=== PATIENT | male | born 1950 | race Caucasian/White ===

== ENCOUNTER 2024-08-29 09:51 | Outpatient (CLI) | payer MEDICARE, SELFPAY ==
--- NOTE | ~2024-08-29 | XR_ITS ---
3 VIEWS LUMBAR SPINE Ordering provider: Nba Negrete, History: . PAIN IN LEFT HIP . Comparison: None. FINDINGS: VERTEBRAL BODIES: No visible fracture or subluxation. Degenerative changes of the spine. DISK SPACES: Narrowing of disc L4-L5. Multilevel facet joint disease. SOFT TISSUES: Atherosclerotic changes with highly suggestive aortic aneurysm measuring 6.5 cm. Furthe r evaluation advised. IMPRESSION: No acute osseous abnormality lumbar spine. Abdominal aortic aneurysm measuring 6.5 cm. Further evaluation advised. Degenerative disc disease at the level of L4-L5. Reviewed, dictated and finalized at location A. UTATOR OPERATOR
--- NOTE | ~2024-08-29 | XR_ITS ---
XR hip LT min 3V w AP pelvis Ordering provider: Nba Negrete, History: . PAIN IN LEFT HIP . Comparison: None. FINDINGS: BONES: No acute fracture or dislocation. HIP JOINT SPACES: Bilateral moderate hip osteoarthritic changes. SACROILIAC JOINT SPACES/LUMBAR SPINE: The sacroiliac joint spaces shows bilateral sacroiliitis. Mild degenerative changes of the visualized lower lumbar spine. PUBIC SYMPHYSIS: Pubic symphysitis. SOFT TISSUES: Atherosclerotic changes. IMPRESSION: No acute osseous abnormality pelvis and left hip. Bilateral hip osteoarthritic changes. Bilateral sacroiliitis. Reviewed, dictated and finalized at location A. DESIGNER
== END 2024-08-29 09:52 | disposition home or self-care (01) ==
LOC: ANHIMG 10:02
PROVIDERS: PCP Internal Medicine; Visit Provider Internal Medicine
DX: M25.552 Pain in left hip (principal); M51.369 Other intervertebral disc degeneration, lumbar region without mention of lumbar back pain or lower extremity pain; I71.40 Abdominal aortic aneurysm, without rupture, unspecified
CPT/HCPCS: 72100; 73502

== ENCOUNTER 2024-11-28 09:39 | Outpatient (CLI) | payer MEDICARE, SELFPAY ==
[2024-11-28 09:55] LABS: Basophils Absolute Auto 0.2 K/mm3 (0.0-0.1); Basophils Percent Auto 0.4 % (0.2-1.2); Eosinophils Absolute Auto 0.2 K/mm3 (0-0.3); Eosinophils Percent Auto 0.4 % (0-4.4); Hematocrit 49.1 % (42.0-52.0); Hemoglobin 15.3 g/dL (14.0-18.0); Immature Granulocyte Percent A 0.2 % (0-0.5); Lymphocytes Absolute Auto 40.08 K/mm3 (0.9-3.2); Lymphocytes Percent Auto 85.8 % (18.3-44.2); Mean Corpuscular HGB Conc 31.2 g/dl (32-36); Mean Corpuscular Hemoglobin 30.2 pg (26-34); Mean Corpuscular Volume 96.8 fl (80-100); Mean Platelet Volume 10.3 fl (7.4-10.4); Monocytes Absolute Auto 0.8 K/mm3 (0.1-0.6); Monocytes Percent Auto 1.7 % (2.6-8.5); Neutrophils Absolute Auto 5.3 K/mm3 (1.3-6.7); Neutrophils Percent Auto 11.5 % (45.5-73.1); Platelet Count Result 165 k/mm3 (150-375); Red Blood Count 5.07 M/mm3 (4.6-6.20); Red Cell Distribution Width 13.3 % (11.5-14.5); White Blood Count 46.7 K/mm3 (4.5-10.0)
[2024-11-28 10:07] LABS: Alanine Aminotransferase 19 U/L (6-50); Albumin Level 4.2 g/dL (3.5-5.1); Alkaline Phosphatase 103 U/L (38-126); Anion Gap 6 mmol/L (4-12); Aspartate Amino Transferase 29 U/L (17-59); Bilirubin,Total 1.6 mg/dL (0.2-1.3); Blood Urea Nitrogen 17 mg/dL (9-20); Calcium 9.2 mg/dL (8.4-10.2); Carbon Dioxide 32 mmol/L (22-30); Chloride 100 mmol/L (98-107); Estimated Glomerular Filt Rate > 60; Glucose 110 mg/dL (65-110); Potassium 4.5 mmol/L (3.4-5.0); Sodium 138 mmol/L (137-145)
--- OUTSIDE RECORDS SUMMARY | 2024-11-28 10:18 | XMS_ITS | Encounter Summary ---
Author Organization [facility] Address 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
--- OUTSIDE RECORDS SUMMARY | 2024-11-28 10:18 | XMS_ITS | Data Portability ---
Author Organization [employer], Main Office Address [address] [place] [address] Care Team Providers Care Creel Selector Name Role Phone JOSIE BANEGAS [employer] Wireman WAI NEGRETE Primary Care Provider [phone] YFN ASTUDILLO Hematology/Oncology [phone] PAOLA KILGORE 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 Operator Helper Assessment Encounter Date Assessment Date Assessment LastModified by Organization Details LastModified Time 02/07/2024 02/07/2024 10/08/2023: PSA 3.54 Gluc 120, TP 6.2L, Glob 2.4L 12/31/2023: Gluc 142, Glob 2.3 WBC 37.1 45 minutes spent with the patient and his vinicio Not available 02/07/2024 11:00:34 03/20/2024 03/20/2024 10/08/2023: PSA 3.54 Gluc 120, TP 6.2L, Glob 2.4L 12/31/2023: Gluc 142, Glob 2.3 WBC 37.1 02/08/2024: WBC 34.1 Gluc 107, bili T 1.90 45 minutes spent with the patient and his vinicio Not available 03/20/2024 12:00:56 05/31/2024 05/31/2024 10/08/2023: PSA 3.54 Gluc 120, TP 6.2L, Glob 2.4L 12/31/2023: Gluc 142, Glob 2.3 WBC 37.1 02/08/2024: WBC 34.1 Gluc 107, bili T 1.90 05/22/2024: WBC 41.6 Gluc 182, T bili 1.60H, TP 5.8L 45 minutes spent with the patient, reviewed his labs, updated the chart, provided referrals Not available 05/31/2024 10:53:59 08/28/2024 08/28/2024 10/08/2023: PSA 3.54 Gluc 120, TP 6.2L, Glob 2.4L 12/31/2023: Gluc 142, Glob 2.3 WBC 37.1 02/08/2024: WBC 34.1 Gluc 107, bili T 1.90 05/22/2024: WBC 41.6 Gluc 182, T bili 1.60H, TP 5.8L 45 minutes spent with the patient, reviewed his labs, updated the chart, provided referrals Not available 08/28/2024 11:36:45 11/27/2024 11/27/2024 10/08/2023: PSA 3.54 Gluc 120, TP 6.2L, Glob 2.4L 12/31/2023: Gluc 142, Glob 2.3 WBC 37.1 02/08/2024: WBC 34.1 Gluc 107, bili T 1.90 05/22/2024: WBC 41.6 Gluc 182, T bili 1.60H, TP 5.8L 09/08/2024: T bli 1.9 45 minutes spent with the patient, reviewed his labs, updated the chart, provided referrals for ortho [email or web address] Not available 11/27/2024 11:40:06 Plan of Treatment Reminders Order Date Submit Date Provider Last Modified By Organization Details Last Modified Time Details Appointments New Patient 15 2024 09:05A Enrike Ferguson MD Not available Not available Not available Follow Up 15 2024 09:15A Enrike valera MD Not available Not available Not available Lab lipid panel, serum [email or web address] (Lab), [address] [place], [address], 11/27/2024 12:31:12 CBC w/ auto diff [email or web address] (Lab), [address] [place], [address], 11/27/2024 12:31:12 CMP, serum or plasma [address] (Lab), [address] [place], [address], 11/27/2024 12:31:12 TSH, serum or plasma [address] (Lab), [address] [place], [address], 11/27/2024 12:31:13 lipid panel, serum 2024 025 [facility] (Lab), [address] [place], [address], 09/08/2024 18:10:20 CBC w/ auto diff 2024 025 [facility] (Lab), [address] [place], [address], 09/08/2024 18:10:20 CMP, serum or plasma 2024 025 [facility] (Lab), [address] [place], [address], 09/08/2024 18:10:20 TSH, serum or plasma [address] (Lab), [address] [place], [address], 08/28/2024 12:01:41 lipid panel, serum 2023 024 [facility] (Lab), [address] [place], [address], 11/27/2024 04:23:12 CBC w/ auto diff 2023 024 [facility] (Lab), [address] [place], [address], 11/27/2024 04:23:13 CMP, serum or plasma 2023 024 [facility] (Lab), [address] [place], [address], 11/27/2024 04:23:13 TSH, serum or plasma 2023 024 [facility] (Lab), [address] [place], [address], 11/27/2024 04:23:13 lipid panel, serum 2023 024 [facility] (Lab), [address] [place], [address], 05/22/2024 11:10:15 CBC w/ auto diff 2023 024 [facility] (Lab), [address] [place], [address], 05/22/2024 11:55:12 CMP, serum or plasma 2023 024 [facility] (Lab), [address] [place], [address], 05/22/2024 11:10:32 TSH, serum or plasma 2023 024 [facility] (Lab), [address] [place], [address], 05/22/2024 11:39:43 lipid panel, serum 2023 024 [facility] (Lab), [address] [place], [address], 02/08/2024 13:28:16 CBC w/ auto diff 2023 024 [facility] (Lab), [address] [place], [address], 02/08/2024 15:44:13 CMP, serum or plasma 2023 024 [facility] (Lab), [address] [place], [address], 02/08/2024 13:28:22 TSH, serum or plasma 2023 024 [facility] (Lab), [address] [place], [address], 02/08/2024 14:06:41 Referral vascular surgeon referral - Please call patient to schedule. 2024 025 kat Banegas MD, [address] [facility] [address], [place], [address], 11/27/2024 11:40:46 hematolog ist/oncol ogist referral 2024 025 kat Astudillo MD, [address] , [facility] [address], [place], [address], 11/27/2024 11:40:46 pulmonolo gist referral - (wait on labs) 2024 025 [email or web address] Paola Kilgore MD, [address] [place], [address], 11/27/2024 12:27:54 hepatolog ist referral - Add on referral order for appt. 2024 025 kat Gruber MD, [address] [facility] [address], [place], [address], 11/27/2024 11:40:47 orthopedi c surgeon referral - Please call patient to schedule an appointme nt. Thank you. 2024 025 [email or web address] Young Ferguson MD, [address] [facility], [place], [address], 11/27/2024 12:31:11 vascular surgeon referral - Please call patient to schedule. 2024 025 ELSIE Banegas MD, [address] [facility], [address], [place], [address], 10/05/2024 08:45:33 hematolog ist/oncol ogist referral 2024 025 Yfn Astudillo MD, [address], [address], [place], [address], 08/29/2024 11:22:15 urologist referral - Please call patient to schedule. 2024 025 [email or web address] Justin lBue, [address] [facility], [facility] [place], [address], 10/05/2024 08:17:47 pulmonolo gist referral 2024 025 [email or web address] Paola Kilgore MD, [address] [place], [address], 08/29/2024 11:22:14 hepatolog ist referral - Add on referral order for appt. 2024 025 aly Gruber MD, [address] [facility], [address], [place], [address], 10/30/2024 17:06:55 vascular surgeon referral 2023 024 [email or web address] Josie Banegas MD, [address] [facility], [facility] [address], [place], [address], 05/31/2024 10:43:57 hematolog ist/oncol ogist referral 2023 024 [email or web address] Yfn Astudillo MD, [address], [address], [place], [address], 05/31/2024 10:43:58 urologist referral 2023 024 [email or web address] Monty Khalil MD, [address] [facility] [address], [address], [place], [address], 05/31/2024 10:43:59 pulmonolo gist referral 2023 024 Paola Kilgore MD, [address] [place], [address], 05/31/2024 10:42:55 hepatolog ist referral 2023 024 [email or web address] Yvan Baltazar MD, [facility] [place], [address], 05/31/2024 10:44:00 vascular surgeon referral 2023 024 [email or web address] Josie Banegas MD, [address] [facility], [facility] [address], [address], 08/14/2024 16:12:16 urologist referral 2023 024 [email or web address] 2 Monty Khalil MD, [address] [facility] [address], [facility] [address], [place], [address], 10/17/2024 08:32:54 pulmonolo gist referral 2023 024 [email or web address] Paola Kilgore MD, [address] [place], [address], 04/20/2024 09:23:21 hepatolog ist referral 2023 024 [email or web address] 2 Yvan Baltazar MD, [address] [place], [address], 10/17/2024 08:32:55 hematolog ist/oncol ogist referral 2023 024 [email or web address] 2 Ariel Eric MD, [address], [place], [address], 10/17/2024 08:32:53 vascular surgeon referral 2023 024 [email or web address] Josie Banegas MD, [address], [address], [place], [address], 08/14/2024 16:12:21 hematolog ist/oncol ogist referral 2023 024 LIZ Eric MD, [address], [place], [address], 02/15/2024 10:31:53 urologist referral 2023 024 [email or web address] Monty Khalil MD, [address] [facility] [address], [address], [place], [address], 10/02/2024 09:18:02 pulmonolo gist referral 2023 024 [email or web address] Paola Kilgore MD, [address], [place], [address], 03/06/2024 09:42:47 Procedures colonosco py screening (PROC) - Please call patient to schedule. 2024 025 [email or web address] Trae Sainz MD, [address], [address], [place], [address], 11/27/2024 11:40:46 colonosco py screening (PROC) - Please call patient to schedule. 2024 025 [email or web address] Deon Arreguin MD, [address] [facility] [address], [address], [place], [address], 08/29/2024 11:20:59 colonosco py screening (PROC) 2023 024 [email or web address] Tracy Gruber MD, [address], [address], [place], [address], 2024 13:00:40 colonosco py screening (PROC) 2023 024 [email or web address] Yuridia Aquino MD, [address], [address], [place], [address], 10/19/2024 11:01:12 colonosco py screening (PROC) 2023 024 [email or web address] Yuridia Aquino MD, [address], [address], [place], [address], 08/14/2024 16:10:34 Surgeries None recorded. Imaging XR, hip + pelvis, unilatera l, 2 or 3 view - Stat hold and call 2024 025 [facility], [address], [address], [place], [address], 08/29/2024 12:35:18 XR, lumbosacr al spine, 2 or 3 view - Stat hold and call Dr Patrick valera 2024 025 [facility], [address], [address], [place], [address], 08/29/2024 12:38:24 Medication Orders albuterol sulfate HFA 90 mcg/actua tion aerosol inhaler 2024 025 [id number], [address] , [place], [place], [id number], 08/28/2024 12:00:17 Patient TargetsNo targets recorded. Patient Instructions Encounter Date Encounter Id Patient Instructions Last Modified By Organization Details Last Modified Time 02/07/2024 [id number] dementia rating scale-2* [email or web address] 2 Not available 02/07/2024 13:48:08 alcohol misuse* [email or web address] 2 Not available 02/07/2024 13:48:08 depression screening* [email or web address] 2 Not available 02/07/2024 13:48:08 Timed Up and Go test (TUG)* stephanie 2 Not available 02/07/2024 13:48:08 multi-dimensiona l health assessment questionnaire* [email or web address] Not available 02/08/2024 13:07:05 advance care planning: care instructions stephanie 2 Not available 02/07/2024 13:48:08 advance directiv es: care instructions stephanie 2 Not available 02/07/2024 13:48:08 [place] Advance Directives stephanie 2 Not available 02/07/2024 13:48:08 Personalized Hea lt Plan and Screening Recommendations Advance Directives - Do you have one? No You have indicated that you are capable of preparing your advance care directive Advance Directives - Do we have your advance directive on file in your health record? Primary Prevention/Interven tion (prevents or decreases the chance of common diseases from occurring) Smoking Risk: Non Smoker Alcohol Misuse Screening: Negative Weight: Appropriate Overwei ght continue your current weight loss efforts try to lose 5% of your body weight try to lose 10% of your body weight Physical activity: Need more exercise/physical activity decrease sitting time to no more than 5hr/day Nutrition: Good Average Refer to attached handout Heart-Healthy Diet: After Your Visit Refer to attached handout DASH Diet: After Your Visit Fall Risk (screened today): Low Intermediate Refer to attached handout Preventing Falls: After your Visit Vaccines Pneumococcal: Ordered Recommended today Recommended today, but you have declined No further needed Influenza: Your next one in the fall of this year Chronic Disease Risks Stroke: Low Risk Intermediate Risk Heart Attack: Low risk Intermediate Risk Clogging of the Arteries: Low risk Intermediate Risk Diabetes: High Risk Active diagnosis, Continue current treatment plan Secondary Prevention/Interven tion (detects treatable diseases before they may cause symptoms, disability, or ) Prostate Cancer Screening: Colon Cancer Screening: Colonoscopy Date Screening Last Performed:Ordered Eye Disease Screening: Ordered Recommended today Dementia Risk: Low I have no recommendations Depression Screening: Negative Positive Active diagnosis, Continue current treatment plan [email or web address] Not available 02/07/2024 13:40:32 Reason for Referral 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 Operator Helper Referral for O bstructive sleep apnea syndrome Referring Physician: Wai Negrete, Internal Medicine, Encounter Date: 02/07/2024 Vascular Surgeon Referral fo r Peripheral vascular disease Referring Physician: Vish Moody Medicine, Encounter Date: 02/07/2024 Referring Physician: Wai Negrete Internal [place], Encounter Date: 02/07/2024 Urologist Referral for Prost ate specific antigen above reference range Referring Physician: Wai Negrete Internal Medicine, Encounter Date: 02/07/2024 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 Operator Helper Referral for O bstructive sleep apnea syndrome Referring Physician: Vish Moody Medicine, Encounter Date: 03/20/2024 Vascular Surgeon Referral fo r Peripheral vascular disease Referring Physician: Vish Moody, Encounter Date: 03/20/2024 Referring Physician: Vish Moody, Encounter Date: 03/20/2024 Urologist Referral for Prost ate specific antigen above reference range Referring Physician: Vish Moody, Encounter Date: 03/20/2024 Hazardous Materials Waste Technician Referral for He patomegaly Referring Physician: Vish Moody, Encounter Date: 03/20/2024 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 Operator Helper Referral for O bstructive sleep apnea syndrome Referring Physician: Vish Moody, Encounter Date: 05/31/2024 Vascular Surgeon Referral fo r Peripheral vascular disease Referring Physician: Vish Moody, Encounter Date: 05/31/2024 Referring Physician: Vish Moody, Encounter Date: 05/31/2024 Urologist Referral for Prost ate specific antigen above reference range Referring Physician: Vish Moody, Encounter Date: 05/31/2024 Hazardous Materials Waste Technician Referral for He patomegaly Referring Physician: Vish Moody, Encounter Date: 05/31/2024 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 Operator Helper Referral for O bstructive sleep apnea syndrome Referring Physician: Wai Negrete Internal Medicine, Encounter Date: 08/28/2024 Vascular Surgeon Referral fo r Peripheral vascular disease Please call patient to schedule. Referring Physician: Wai Negrete Internal Medicine, Encounter Date: 08/28/2024 Referring Physician: Wai Negrete Internal Medicine, Encounter Date: 08/28/2024 Urologist Referral for Prost ate specific antigen above reference range Please call patient to schedule. Referring Physician: Wai Negrete Internal Medicine, Encounter Date: 08/28/2024 Hazardous Materials Waste Technician Referral for He patomegaly Add on referral order for 09/13/2024 appt. Referring Physician: Vish Moody Medicine, Encounter Date: 08/28/2024 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 Operator Helper Referral for O bstructive sleep apnea syndrome (wait on labs) Referring Physician: Vish Moody Medicine, Encounter Date: 11/27/2024 Vascular Surgeon Referral fo r Peripheral vascular disease Please call patient to schedule. Referring Physician: Vish Moody Medicine, Encounter Date: 11/27/2024 Referring Physician: Wai Negrete Internal Medicine, Encounter Date: 11/27/2024 Hazardous Materials Waste Technician Referral for He patomegaly Add on referral order for 09/13/2024 appt. Referring Physician: Vish Moody Medicine, Encounter Date: 11/27/2024 Orthopedic Surgeon Referral for Pain of bilateral knee joints Please call patient to schedule an appointment. Thank you. Referring Physician: Vish Moody Medicine, Encounter Date: 11/27/2024 Results Created Date Observation Date Name Description Value Unit Range Abnormal Flag Note LastModifiedBy Organization Detail LastModifiedTime 02/08/20 24 02/08/2024 LIPID PANEL cholesterol 119 mg/dL 140-19 9 low NIH ISAMAR NSUS RECOM MENDA TION FOR ROGERIO STERO L: ADULT CHILD LOW RISK: <200 <170 BORDE RLINE : <200- 239 ----- HIGH RISK: >240 >200 Not Available [facility] (Lab) [address] [place], [address], 02/08/2024 13:28:16 02/08/20 24 02/08/2024 LIPID PANEL triglyceride s 113 mg/dL 0-150 NIH ISAMAR NSUS REPOR T RECOM MENDA TION FOR TRIGL YCERI COLLEEN: ADULT CHILD LOW RISK: <150 ----- BODER LINE: 150-1 99 ----- HIGH RISK: >200 ----- Not Available [facility] (Lab) [address] [place], [address], 02/08/2024 13:28:16 02/08/20 24 02/08/2024 LIPID PANEL HDL cholesterol 36 mg/dL 40- low Not Available [facility] (Lab) [address] [place], [address], 02/08/2024 13:28:16 02/08/20 24 02/08/2024 LIPID PANEL LDL cholesterol, calculated 60 mg/dL 0-130 NIH ISAMAR NSUS REPOR T RECOM MENDA TIONS FOR LDL: ADULT CHILD LOW RISK <130 <110 (OPTI MAL LDL) <100 ----- BORDE RLINE : 130-1 59 ----- HIGH RISK: >160 >130 A TRIGL YCERI DE RESUL T >400 INVAL IDATE S THE CALCU LATIO N FOR LDL FRACT IONAT ION - THE LDL RESUL T WILL NOT BE REPOR SUZAN. Not Available [facility] (Lab) [address] [place], [address], 02/08/2024 13:28:16 02/08/20 24 02/08/2024 COMPR EHENS JOSÉ MIGUEL METAB OLIC PANEL sodium 139 mmol/ L 137-14 5 Not Available [facility] (Lab) [address] [place], [address], 02/08/2024 13:28:22 02/08/20 24 02/08/2024 COMPR EHENS JOSÉ MIGUEL METAB OLIC PANEL potassium 3.7 mmol/ L 3.5-5. 1 Not Available [facility] (Lab) [address] [place], [address], 02/08/2024 13:28:22 02/08/20 24 02/08/2024 COMPR EHENS JOSÉ MIGUEL METAB OLIC PANEL chloride 103 mmol/ L 98-107 Not Available [facility] (Lab) [address] [place], [address], 02/08/2024 13:28:22 02/08/20 24 02/08/2024 COMPR EHENS JOSÉ MIGUEL METAB OLIC PANEL carbon dioxide 32 mmol/ L 22-30 high Not Available [facility] (Lab) [address] [place], [address], 02/08/2024 13:28:22 02/08/20 24 02/08/2024 COMPR EHENS JOSÉ MIGUEL METAB OLIC PANEL anion gap 7.7 mmol/ L 14-22 low Not Available [facility] (Lab) [address] [place], [address], 02/08/2024 13:28:22 02/08/20 24 02/08/2024 COMPR EHENS JOSÉ MIGUEL METAB OLIC PANEL glucose 107 mg/dL 70-99 high Not Available [facility] (Lab) [address] [place], [address], 02/08/2024 13:28:22 02/08/20 24 02/08/2024 COMPR EHENS JOSÉ MIGUEL METAB OLIC PANEL BUN 17 mg/dL 8-19 Not Available [facility] (Lab) [address] [place], [address], 02/08/2024 13:28:22 02/08/20 24 02/08/2024 COMPR EHENS JOSÉ MIGUEL METAB OLIC PANEL creatinine 0.81 mg/dL 0.66-1 .25 Not Available [facility] (Lab) [address] [place], [address], 02/08/2024 13:28:22 02/08/20 24 02/08/2024 COMPR EHENS JOSÉ MIGUEL METAB OLIC PANEL GFR >60 Refer ence Range : [place] ge GFR Healt hy Adult : >60 mL/mi n/1.7 3 m2 Chron ic Kidne y Disea se: 15-60 mL/mi n/1.7 3 m2 Kidne y Failu re: <15/m L/min /1.73 m2 www.n iddk. nih.g ov The MDRD study equat ion has not been valid ated in child les <18 years of age; pregn ant women ; the elder ly >85 years of age; or in some racia l or ethni c subgr oups, such as Hismt nics. Outsi de the valid ated matheus eters , estim ated GFR is less accur ate, requi ring clini carly judgm ent on a case- by-ca se basis . Clini carly inter preta tion for other races and ages must be made by the clini priya. The MDRD study equat ion has not been valid ated for the evalu ation of serum creat inine relat ed to nutri rubi l statu s or medic ation usage . For perso ns <18 years of age, a pedia tric GFR calcu lator is avail able on the F websi te: https ://ww w.kid maria esther.o rg/pr ofess ional s/kdo qi/gf r_cal culat or Not Available [facility] (Lab) [address] [place], [address], 02/08/2024 13:28:22 02/08/20 24 02/08/2024 COMPR EHENS JOSÉ MIGUEL METAB OLIC PANEL alkaline phosphatase 106 U/L 38-126 Not Available [facility] (Lab) [address] [place], [address], 02/08/2024 13:28:22 02/08/20 24 02/08/2024 COMPR EHENS JOSÉ MIGUEL METAB OLIC PANEL alanine aminotransfe rase 15 U/L 0-50 Not Available [facility] (Lab) [address] [place], [address], 02/08/2024 13:28:22 02/08/20 24 02/08/2024 COMPR EHENS JOSÉ MIGUEL METAB OLIC PANEL aspartate aminotransfe rase 16 U/L 15-46 Not Available [facility] (Lab) [address] [place], [address], 02/08/2024 13:28:22 02/08/20 24 02/08/2024 COMPR EHENS JOSÉ MIGUEL METAB OLIC PANEL bilirubin, total 1.90 mg/dL 0.20-1 .30 high Not Available [facility] (Lab) [address] [place], [address], 02/08/2024 13:28:22 02/08/20 24 02/08/2024 COMPR EHENS JOSÉ IMGUEL METAB OLIC PANEL calcium 9.2 mg/dL 8.4-10 .2 Not Available [facility] (Lab) [address] [place], [address], 02/08/2024 13:28:22 02/08/20 24 02/08/2024 COMPR EHENS JOSÉ MIGUEL METAB OLIC PANEL total protein 6.4 g/dL 6.3-8. 2 Not Available [facility] (Lab) [address] [place], [address], 02/08/2024 13:28:22 02/08/20 24 02/08/2024 COMPR EHENS JOSÉ MIGUEL METAB OLIC PANEL albumin 4.3 g/dL 3.0-4. 4 Not Available [facility] (Lab) [address] [place], [address], 02/08/2024 13:28:22 02/08/20 24 02/08/2024 COMPR EHENS JOSÉ MIGUEL METAB OLIC PANEL globulin 2.1 g/dL 2.6-4. 2 low Not Available [facility] (Lab) [address] [place], [address], 02/08/2024 13:28:22 02/08/20 24 02/08/2024 COMPR EHENS JOSÉ MIGUEL METAB OLIC PANEL A/G ratio 2.0 ratio 1.0-2. 0 Not Available [facility] (Lab) [address] [place], [address], 02/08/2024 13:28:22 02/08/20 24 02/08/2024 TSH W/REF FELICE FT4 TSH with reflex free T4 1.490 uIU/m L 0.465- 4.680 Not Available [facility] (Lab) [address] [place], [address], 02/08/2024 14:06:41 02/08/20 24 02/08/2024 CBC/C OMPLE TE BLD COUNT W/DIF F white blood cells 34.1 x10'3 /uL 4.2-10 .8 critical high Not Available [facility] (Lab) [address] [place], [address], 02/08/2024 16:13:45 02/08/20 24 02/08/2024 CBC/C OMPLE TE BLD COUNT W/DIF F red blood cells 4.90 x10'6 /uL 4.10-5 .80 Not Available [facility] (Lab) [address] [place], [address], 02/08/2024 16:13:45 02/08/20 24 02/08/2024 CBC/C OMPLE TE BLD COUNT W/DIF F hemoglobin 15.7 g/dL 13.2-1 7.0 Not Available [facility] (Lab) [address] [place], [address], 02/08/2024 16:13:45 02/08/20 24 02/08/2024 CBC/C OMPLE TE BLD COUNT W/DIF F hematocrit 47.0 % 39.3-5 0.0 Not Available [facility] (Lab) [address] [place], [address], 02/08/2024 16:13:45 02/08/20 24 02/08/2024 CBC/C OMPLE TE BLD COUNT W/DIF F mean red cell volume 95.9 fL 80.0-9 7.0 Not Available [facility] (Lab) [address] [place], [address], 02/08/2024 16:13:45 02/08/20 24 02/08/2024 CBC/C OMPLE TE BLD COUNT W/DIF F mean red cell hemoglobin 32.0 pg 27.0-3 3.0 Not Available [facility] (Lab) [address] [place], [address], 02/08/2024 16:13:45 02/08/20 24 02/08/2024 CBC/C OMPLE TE BLD COUNT W/DIF F mean RBC HGB concentratio n 33.4 g/dL 31.0-3 6.0 Not Available [facility] (Lab) [address] [place], [address], 02/08/2024 16:13:45 02/08/20 24 02/08/2024 CBC/C OMPLE TE BLD COUNT W/DIF F red cell distribution width 13.2 % 11.8-1 5.5 Not Available [facility] (Lab) [address] [place], [address], 02/08/2024 16:13:45 02/08/20 24 02/08/2024 CBC/C OMPLE TE BLD COUNT W/DIF F platelets 173 x10'3 /uL 150-40 0 Not Available [facility] (Lab) [address] [place], [address], 02/08/2024 16:13:45 02/08/20 24 02/08/2024 CBC/C OMPLE TE BLD COUNT W/DIF F mean platelet volume 11.1 fL 9.0-12 .4 Not Available [facility] (Lab) [address] [place], [address], 02/08/2024 16:13:45 02/08/20 24 02/08/2024 CBC/C OMPLE TE BLD COUNT W/DIF F neutrophils 21 % 39.0-7 2.0 low Not Available [facility] (Lab) [address] [place], [address], 02/08/2024 16:13:45 02/08/20 24 02/08/2024 CBC/C OMPLE TE BLD COUNT W/DIF F bands 1 % 0-3 Not Available [facility] (Lab) [address] [place], [address], 02/08/2024 16:13:45 02/08/20 24 02/08/2024 CBC/C OMPLE TE BLD COUNT W/DIF F lymphocytes 73 % 16.0-4 7.0 high Not Available [facility] (Lab) [address] [place], [address], 02/08/2024 16:13:45 02/08/20 24 02/08/2024 CBC/C OMPLE TE BLD COUNT W/DIF F monocytes 2 % 5.0-12 .0 low Not Available [facility] (Lab) [address] [place], [address], 02/08/2024 16:13:45 02/08/20 24 02/08/2024 CBC/C OMPLE TE BLD COUNT W/DIF F basophils 1 % 0.0-2. 0 Not Available [facility] (Lab) [address] [place], [address], 02/08/2024 16:13:45 02/08/20 24 02/08/2024 CBC/C OMPLE TE BLD COUNT W/DIF F metamyelocyt es 1 % -0 high Not Available [facility] (Lab) [address] [place], [address], 02/08/2024 16:13:45 02/08/20 24 02/08/2024 CBC/C OMPLE TE BLD COUNT W/DIF F myelocyt 1 % -0 high Not Available [facility] (Lab) [address] [place], [address], 02/08/2024 16:13:45 02/08/20 24 02/08/2024 CBC/C OMPLE TE BLD COUNT W/DIF F neutrophils, absolute count 5.43 x10'3 /uL 1.5-8. 0 Not Available [facility] (Lab) [address] [place], [address], 02/08/2024 16:13:45 02/08/20 24 02/08/2024 CBC/C OMPLE TE BLD COUNT W/DIF F nucleated red blood cells 0.0 % -0 Not Available [facility] (Lab) [address] [place], [address], 02/08/2024 16:13:45 02/08/20 24 02/08/2024 CBC/C OMPLE TE BLD COUNT W/DIF F NRBC# 0.00 x10'3 /uL Not Available [facility] (Lab) [address] [place], [address], 02/08/2024 16:13:45 02/08/20 24 02/08/2024 CBC/C OMPLE TE BLD COUNT W/DIF F reactive lymphocytes OCCASI ONAL Not Available [facility] (Lab) [address] [place], [address], 02/08/2024 16:13:45 02/08/20 24 02/08/2024 CBC/C OMPLE TE BLD COUNT W/DIF F smudge cells 3+ Not Available [facility] (Lab) [address] [place], [address], 02/08/2024 16:13:45 05/22/20 24 05/22/2024 LIPID PANEL cholesterol 129 mg/dL 140-19 9 low NIH ISAMAR NSUS RECOM MENDA TION FOR ROGERIO STERO L: ADULT CHILD LOW RISK: <200 <170 BORDE RLINE : <200- 239 ----- HIGH RISK: >240 >200 Not Available [facility] (Lab) [address] [place], [address], 05/22/2024 11:10:15 05/22/20 24 05/22/2024 LIPID PANEL triglyceride s 137 mg/dL 0-150 NIH ISAMAR NSUS REPOR T RECOM MENDA TION FOR TRIGL YCERI COLLEEN: ADULT CHILD LOW RISK: <150 ----- BODER LINE: 150-1 99 ----- HIGH RISK: >200 ----- Not Available [facility] (Lab) [address] [place], [address], 05/22/2024 11:10:15 05/22/20 24 05/22/2024 LIPID PANEL HDL cholesterol 35 mg/dL 40- low Not Available [facility] (Lab) [address] [place], [address], 05/22/2024 11:10:15 05/22/20 24 05/22/2024 LIPID PANEL LDL cholesterol, calculated 67 mg/dL 0-130 NIH ISAMAR NSUS REPOR T RECOM MENDA TIONS FOR LDL: ADULT CHILD LOW RISK <130 <110 (OPTI MAL LDL) <100 ----- BORDE RLINE : 130-1 59 ----- HIGH RISK: >160 >130 A TRIGL YCERI DE RESUL T >400 INVAL IDATE S THE CALCU LATIO N FOR LDL FRACT IONAT ION - THE LDL RESUL T WILL NOT BE REPOR SUZAN. Not Available [facility] (Lab) [address] [place], [address], 05/22/2024 11:10:15 05/22/20 24 05/22/2024 COMPR EHENS JOSÉ MIGUEL METAB OLIC PANEL sodium 136 mmol/ L 137-14 5 low Not Available [facility] (Lab) [address] [place], [address], 05/22/2024 11:10:32 05/22/2005/22/2024 COMPR EHENS JOSÉ MIGUEL METAB OLIC PANEL potassium 3.7 mmol/ L 3.5-5. 1 Not Available [facility] (Lab) [address] [place], [address], 05/22/2024 11:10:32 05/22/20 24 05/22/2024 COMPR EHENS JOSÉ MIGUEL METAB OLIC PANEL chloride 101 mmol/ L 98-107 Not Available [facility] (Lab) [address] [place], [address], 05/22/2024 11:10:32 05/22/20 24 05/22/2024 COMPR EHENS JOSÉ MIGUEL METAB OLIC PANEL carbon dioxide 30 mmol/ L 22-30 Not Available [facility] (Lab) [address] [place], [address], 05/22/2024 11:10:32 05/22/20 24 05/22/2024 COMPR EHENS JOSÉ MIGUEL METAB OLIC PANEL anion gap 8.7 mmol/ L 14-22 low Not Available [facility] (Lab) [address] [place], [address], 05/22/2024 11:10:32 05/22/20 24 05/22/2024 COMPR EHENS JOSÉ MIGUEL METAB OLIC PANEL glucose 182 mg/dL 70-99 high Not Available [facility] (Lab) [address] [place], [address], 05/22/2024 11:10:32 05/22/20 24 05/22/2024 COMPR EHENS JOSÉ MIGUEL METAB OLIC PANEL BUN 16 mg/dL 8-19 Not Available [facility] (Lab) [address] [place], [address], 05/22/2024 11:10:32 05/22/20 24 05/22/2024 COMPR EHENS JOSÉ MIGUEL METAB OLIC PANEL creatinine 0.81 mg/dL 0.66-1 .25 Not Available [facility] (Lab) [address] [place], [address], 05/22/2024 11:10:32 05/22/20 24 05/22/2024 COMPR EHENS JOSÉ MIGUEL METAB OLIC PANEL GFR >60 Refer ence Range : [place] ge GFR Healt hy Adult : >60 mL/mi n/1.7 3 m2 Chron ic Kidne y Disea se: 15-60 mL/mi n/1.7 3 m2 Kidne y Failu re: <15/m L/min /1.73 m2 www.n iddk. nih.g ov The MDRD study equat ion has not been valid ated in child les <18 years of age; pregn ant women ; the elder ly >85 years of age; or in some racia l or ethni c subgr oups, such as mt nics. Outsi de the valid ated matheus eters , estim ated GFR is less accur ate, requi ring clini carly judgm ent on a case- by-ca se basis . Clini carly inter preta tion for other races and ages must be made by the clini priya. The MDRD study equat ion has not been valid ated for the evalu ation of serum creat inine relat ed to nutri rubi l statu s or medic ation usage . For perso ns <18 years of age, a pedia tric GFR calcu lator is avail able on the [facility] websi te: https ://aldair w.lester cartery.o rg/pr ofess ional s/kdo qi/gf r_cal culat or Not Available [facility] (Lab) [address] [place], [address], 05/22/2024 11:10:32 05/22/20 24 05/22/2024 COMPR EHENS JOSÉ MIGUEL METAB OLIC PANEL alkaline phosphatase 103 U/L 38-126 Not Available [facility] (Lab) [address] [place], [address], 05/22/2024 11:10:32 05/22/20 24 05/22/2024 COMPR EHENS JOSÉ MIGUEL METAB OLIC PANEL alanine aminotransfe rase 25 U/L 0-50 Not Available [facility] (Lab) [address] [facility] [place], [address], 05/22/2024 11:10:32 05/22/20 24 05/22/2024 COMPR EHENS JOSÉ MIGUEL METAB OLIC PANEL aspartate aminotransfe rase 29 U/L 15-46 Not Available [facility] (Lab) [address] [place], [address], 05/22/2024 11:10:32 05/22/20 24 05/22/2024 COMPR EHENS JOSÉ MIGUEL METAB OLIC PANEL bilirubin, total 1.60 mg/dL 0.20-1 .30 high Not Available [facility] (Lab) [address] [place], [address], 05/22/2024 11:10:32 05/22/20 24 05/22/2024 COMPR EHENS JOSÉ MIGUEL METAB OLIC PANEL calcium 9.5 mg/dL 8.4-10 .2 Not Available [facility] (Lab) [address] [place], [address], 05/22/2024 11:10:32 05/22/20 24 05/22/2024 COMPR EHENS JOSÉ MIGUEL METAB OLIC PANEL total protein 5.8 g/dL 6.3-8. 2 low Not Available [facility] (Lab) [address] [place], [address], 05/22/2024 11:10:32 05/22/20 24 05/22/2024 COMPR EHENS JOSÉ MIGUEL METAB OLIC PANEL albumin 3.7 g/dL 3.0-4. 4 Not Available [facility] (Lab) [address] [place], [address], 05/22/2024 11:10:32 05/22/20 24 05/22/2024 COMPR EHENS JOSÉ MIGUEL METAB OLIC PANEL globulin 2.1 g/dL 2.6-4. 2 low Not Available [facility] (Lab) [address] [place], [address], 05/22/2024 11:10:32 05/22/20 24 05/22/2024 COMPR EHENS JOSÉ MIGUEL METAB OLIC PANEL A/G ratio 1.8 ratio 1.0-2. 0 Not Available [facility] (Lab) [address] [place], [address], 05/22/2024 11:10:32 05/22/2005/22/2024 TSH W/REF FELICE FT4 TSH with reflex free T4 1.150 uIU/m L 0.465- 4.680 Not Available [facility] (Lab) [address] [place], [address], 05/22/2024 11:39:43 05/22/2005/22/2024 CBC/C OMPLE TE BLD COUNT W/DIF F white blood cells 41.6 x10'3 /uL 4.2-10 .8 critical high Not Available [facility] (Lab) [address] [place], [address], 05/22/2024 11:56:19 05/22/2005/22/2024 CBC/C OMPLE TE BLD COUNT W/DIF F red blood cells 4.77 x10'6 /uL 4.10-5 .80 Not Available [facility] (Lab) [address] [place], [address], 05/22/2024 11:56:19 05/22/2005/22/2024 CBC/C OMPLE TE BLD COUNT W/DIF F hemoglobin 15.0 g/dL 13.2-1 7.0 Not Available [facility] (Lab) [address] [place], [address], 05/22/2024 11:56:19 05/22/2005/22/2024 CBC/C OMPLE TE BLD COUNT W/DIF F hematocrit 46.2 % 39.3-5 0.0 Not Available [facility] (Lab) [address] [place], [address], 05/22/2024 11:56:19 05/22/2005/22/2024 CBC/C OMPLE TE BLD COUNT W/DIF F mean red cell volume 96.9 fL 80.0-9 7.0 Not Available [facility] (Lab) [address] [place], [address], 05/22/2024 11:56:19 05/22/2005/22/2024 CBC/C OMPLE TE BLD COUNT W/DIF F mean red cell hemoglobin 31.4 pg 27.0-3 3.0 Not Available [facility] (Lab) [address] [place], [address], 05/22/2024 11:56:19 05/22/2005/22/2024 CBC/C OMPLE TE BLD COUNT W/DIF F mean RBC HGB concentratio n 32.5 g/dL 31.0-3 6.0 Not Available [facility] (Lab) [address] [place], [address], 05/22/2024 11:56:19 05/22/20 24 05/22/2024 CBC/C OMPLE TE BLD COUNT W/DIF F red cell distribution width 13.0 % 11.8-1 5.5 Not Available [facility] (Lab) [address] [place], [address], 05/22/2024 11:56:19 05/22/2005/22/2024 CBC/C OMPLE TE BLD COUNT W/DIF F platelets 169 x10'3 /uL 150-40 0 Not Available [facility] (Lab) [address] [facility] [place], [address], 05/22/2024 11:56:19 05/22/2005/22/2024 CBC/C OMPLE TE BLD COUNT W/DIF F mean platelet volume 10.4 fL 9.0-12 .4 Not Available [facility] (Lab) [address] [place], [address], 05/22/2024 11:56:19 05/22/2005/22/2024 CBC/C OMPLE TE BLD COUNT W/DIF F neutrophils 14.6 % 39.0-7 2.0 low Not Available [facility] (Lab) [address] [place], [address], 05/22/2024 11:56:19 05/22/2005/22/2024 CBC/C OMPLE TE BLD COUNT W/DIF F lymphocytes 82.6 % 16.0-4 7.0 high Not Available [facility] (Lab) [address] [place], [address], 05/22/2024 11:56:19 05/22/2005/22/2024 CBC/C OMPLE TE BLD COUNT W/DIF F monocytes 1.9 % 5.0-12 .0 low Not Available [facility] (Lab) [address] [place], [address], 05/22/2024 11:56:19 05/22/20 24 05/22/2024 CBC/C OMPLE TE BLD COUNT W/DIF F eosinophils 0.6 % 1.0-7. 0 low Not Available [facility] (Lab) [address] [place], [address], 05/22/2024 11:56:19 05/22/2005/22/2024 CBC/C OMPLE TE BLD COUNT W/DIF F basophils 0.1 % 0.0-2. 0 Not Available [facility] (Lab) [address] [place], [address], 05/22/2024 11:56:19 05/22/2005/22/2024 CBC/C OMPLE TE BLD COUNT W/DIF F immature granulocytes 0.2 % 0.00-0 .50 Not Available [facility] (Lab) [address] [place], [address], 05/22/2024 11:56:19 05/22/2005/22/2024 CBC/C OMPLE TE BLD COUNT W/DIF F neutrophils, absolute count 6.03 x10'3 /uL 1.5-8. 0 Not Available [facility] (Lab) [address] [place], [address], 05/22/2024 11:56:19 05/22/2005/22/2024 CBC/C OMPLE TE BLD COUNT W/DIF F lymphocytes, absolute count 34.35 x10'3 /uL 1.07-3 .43 high Not Available [facility] (Lab) [address] [place], [address], 05/22/2024 11:56:19 05/22/2005/22/2024 CBC/C OMPLE TE BLD COUNT W/DIF F monocytes, absolute count 0.80 x10'3 /uL 0.29-0 .99 Not Available [facility] (Lab) [address] [place], [address], 05/22/2024 11:56:19 05/22/20 24 05/22/2024 CBC/C OMPLE TE BLD COUNT W/DIF F eosinophils, absolute count 0.26 x10'3 /uL 0.02-0 .53 Not Available [facility] (Lab) [address] [place], [address], 05/22/2024 11:56:19 05/22/2005/22/2024 CBC/C OMPLE TE BLD COUNT W/DIF F basophils, absolute count 0.05 x10'3 /uL 0.01-0 .08 Not Available [facility] (Lab) [address] [place], [address], 05/22/2024 11:56:19 05/22/2005/22/2024 CBC/C OMPLE TE BLD COUNT W/DIF F immature granulocytes ,absolute 0.09 x10'3 /uL 0.00-0 .05 high Not Available [facility] (Lab) [address] [place], [address], 05/22/2024 11:56:19 05/22/2005/22/2024 CBC/C OMPLE TE BLD COUNT W/DIF F nucleated red blood cells 0.0 % -0 Not Available [facility] (Lab) [address] [place], [address], 05/22/2024 11:56:19 05/22/20 24 05/22/2024 CBC/C OMPLE TE BLD COUNT W/DIF F NRBC# 0.00 x10'3 /uL Not Available [facility] (Lab) [address] [place], [address], 05/22/2024 11:56:19 05/22/2005/22/2024 CBC/C OMPLE TE BLD COUNT W/DIF F smudge cells 4+ Not Available [facility] (Lab) [address] [place], [address], 05/22/2024 11:56:19 05/22/2005/22/2024 CBC/C OMPLE TE BLD COUNT W/DIF F normal RBC morphology PRESEN T Not Available [facility] (Lab) [address] [place], [address], 05/22/2024 11:56:19 03/07/20 24 03/07/2024 US, abdom en, limit ed [facility] [address] [place] [address] Patien t Name: SHRUTHI KAY Access ion #: [id number] Sex: M : 1950 0 Dictat ed By: Seth Capps Attend ing Physic leydi: JANAE GARVEY Orderi ng Physic leydi: JANAE GARVEY Exam Date: 2023 07:14 AM Exam Name: US ABDOME N SINGLE ORGAN Admitt ing Diagno sis(es ): INDICA TION: elevat ed biliru bin TECHNI QUE: Multip le real-t tiffani sonogr aphic images were obtain ed of the right upper quadra nt. COMPAR NOBLE: None FINDIN GS: The liver demons trates homoge nous echote xture withou t focal mass lesion s. The liver measur es 18.0 cm. There is no intrah epatic or extrah epatic ductal dilata tion. The common duct measur es 0.4 cm. Cholel ithias is. The gallbl adder wall measur es 0.2 cm and is within normal limits . The right kidney measur es 9.9 cm. The right kidney is normal in contou r, size, and shape. The echoge nicity is normal . There is no hydron ephros is. The pancre as is not well visual ized due to overly ing bowel gas. IMPRES MARTA: Hepato megaly . Cholel ithias is. Electr onical ly Signed by: Seth Capps at 2023 07:53: 56 AM Page 1 [email or web address] [facility] (Imaging) [address] [facility] [place], [address], 10/23/2024 12:27:40 03/07/20 24 03/07/2024 US, liver No observ ation record ed. [address] [facility], [place], [address], 10/23/2024 12:27:41 08/29/19 25 08/29/2024 XR, hip + pelvi s, unila teral , 2 or 3 view No observ ation record ed. [address] [facility], [place], [address], 10/23/2024 12:27:41 08/29/19 25 08/29/2024 XR, lumbo sacra l spine , 2 or 3 view No observ ation record ed. [address] [address], [place], [address], 10/23/2024 12:27:42 08/29/19 25 08/29/2024 XR, lumbo sacra l spine , 2 or 3 view No observ ation record ed. [address] [address], [place], [address], 10/23/2024 12:27:43 08/29/19 25 08/29/2024 XR, hip + pelvi s, unila teral , 2 or 3 view No observ ation record ed. [address] [address], [place], [address], 10/23/2024 12:27:43 Result Notes None recorded. Problems Name Problem SNOMED Code Status Onset Date Resolution Date Notes Provider Name and Address Organization Details Recorded Time Coronary arterioscl erosis 65562857 Active 2022 ROMAN De Luna, [employer] 10:58:25 Essential hypertensi on 73734987 Active 2023 Wai wilburn MD [address] [facility], [facility] [address], [place], [address] , [employer] 4 15:49:01 Hyperlipid emia 28270708 Active 2023 Wai wilburn MD [address], [address], [place], [address] , [facility] 4 15:49:06 Smoker 12436819 Active 2023 Wai wilburn MD [address], [address], [place], [address] , [facility] 4 15:51:30 Sleep apnea 14664872 Active 2023 Paola Kilgore MD [address], [address], [place], [address] , [facility] 4 08:53:30 Prostate specific antigen above reference range 561322321 Active 2023 Wai wilburn MD [address], [address], [place], [address] , [facility] 4 10:32:16 Mediastina l lymphadeno odalys 26591652 Active 2023 Wai wilburn MD [address], [address], [place], [address] , [facility] 4 10:38:54 Total bilirubin above reference range 3510092999021 08 Active 2023 Niya Busby MA null, [facility] 4 17:19:38 Abdominal aortic aneurysm 090849999 Active 2023 ROMAN Claudio null, [facility] 4 16:08:02 Hyperbilir ubinemia 84648671 Active 2023 Wai wilburn MD [address], [address], [place], [address] , [facility] 4 16:54:33 Hepatomega ly 60770438 Active 2023 Wai wilburn MD [address], [address], [place], [address] , [facility] 4 16:55:03 Pain of left hip joint 8589025789859 00 Active 2024 Wai wilburn MD [address], [address], [place], [address] , [facility] 5 11:56:29 Pain of bilateral knee joints 8532808531468 04 Active 2024 Wai wilburn MD [address], [address], [place], [address] , [facility] [employer] [facility] 5 10:56:07 Cataract 382829245 Active Not Available [facility] 3 07:47:52 Right carotid artery stenosis 1613666730636 00 Active 2022 Not Available [facility] 3 07:47:52 Osteoarthr itis 427901407 Active Not Available [facility] 3 07:47:52 Peripheral vascular disease 084057123 Active Not Available [facility] 3 07:47:52 Ventral incisional hernia 756833521 Active Not Available [facility] 3 07:47:52 Obstructiv e sleep apnea syndrome 26485735 Active Not Available [facility] 3 07:47:52 COVID-19 793172504 Active 2021 Not Available [facility] 3 07:47:52 Chronic lymphoid leukemia, disease 10920801 Active 2021 Not Available [facility] 3 07:47:52 Notes:Medical History: Right CVA 1998 without residual hemiparesis Bilateral hearing loss COVID infection 12/2020 Sinusitis Nicotine use Mild ACO Obesity with mod OSAHS, AHI = 19, 05/17/11, off CPAP Dilated main pulm artery Hypertension Hyperlipidemia Bilateral carotid artery stenosis CAD CLL with mediastinal lymphadenopathy OA PVD Procedure History: T&A 1957 Right carotid endarterectomy 1999 Ventral herniorrhaphy 2013 Bilateral cataract extraction with IOL 2014 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 Procedures Surgical History Date Name Laterality Status Provider Name and Address Organization Details Recorded Time 02/07/20 Medicare Wellness CPT Code, subsequent completed Thiago Soto LPN [employer] [facility] 02/07/2024 13:30:14 02/07/20 24 Advanced Care Planning completed Thiago Soto LPN [employer] [facility] 02/07/2024 13:35:32 09/18/19 15 Rpr ventral marcy init reduc completed Not Available [facility] 10/14/2022 04:42:56 08/25/19 13 Colonoscopy completed Not Available [facility] 10/14/2022 04:42:56 Colon Surgery completed Not Available [facility] 10/14/2022 04:42:56 Carotid Endarterectomy completed Not Available [facility] 10/14/2022 04:42:56 Hernia Repair completed Not Available [facility] 10/14/2022 04:42:56 femoral artery bypass completed Not Available [facility] 10/14/2022 04:42:56 Imaging Results Imaging Date Name Status LastModified by Organiz ation Details LastModified Time 03/07/2024 US, abdomen, limited completed [address] (Imaging) [address] [place], [address], 10/23/2024 12:27:40 03/07/2024 US, liver completed [address] [place], [address], 10/23/2024 12:27:41 08/29/2024 XR, hip + pelvis, unilateral, 2 or 3 view completed [address], [address], 10/23/2024 12:27:41 08/29/2024 XR, lumbosacral spine, 2 or 3 view completed [address], [address], 10/23/2024 12:27:42 08/29/2024 XR, lumbosacral spine, 2 or 3 view completed [address], [place], [address], 10/23/2024 12:27:43 08/29/2024 XR, hip + pelvis, unilateral, 2 or 3 view completed [address] [facility] [address], [place], [address], 10/23/2024 12:27:43 Procedure Notes None recorded. Medical Equipment None Reported. Allergies No known drug allergies Medications Name Sig Start Date Stop Date Status Note LastModified by Organization Details LastModified Time atorvastati n 40 mg tablet TK ONE T PO D 07/25 completed Not Available Not Available Not Available atorvastati n 80 mg tablet TAKE 1 TABLET BY MOUTH EVERY DAY active Not Available Not Available No t Available doxycycline hyclate 100 mg capsule TAKE 1 CAPSULE BY MOUTH TWICE DAILY FOR 7 DAYS 02/08 completed Not Available Not Available Not Available Ceftin 500 mg tablet Take 1 tablet twice a day by oral route for 10 days. 10/29 completed Not Available Not Available Not Available valacyclovi r 1 gram tablet 07/07 completed Not Available Not Available Not Available hydrocodone 5 mg-acetamin ophen 325 mg tablet 03/03 completed Not Available Not Available Not Available prednisone 20 mg tablet TAKE 2 TABLETS BY MOUTH EVERY DAY FOR 5 DAYS 02/08 completed Not Available Not Available Not Available Niaspan 500 mg tablet,exte nded release 08/30 completed Not Available Not Available Not Available Zithromax Z-Gabino 250 mg tablet TAKE 2 TABLETS (500 MG) BY ORAL ROUTE ONCE DAILY FOR 1 DAY THEN 1 TABLET (250 MG) BY ORAL ROUTE ONCE DAILY FOR 4 DAYS 11/12 completed Not Available Not Available Not Available tramadol 50 mg tablet 07/10 completed Not Available Not Available Not Available oxycodone-a cetaminophe n 5 mg-325 mg tablet 10/29 completed Not Available Not Available Not Available lorazepam 0.5 mg tablet TAKE 1 TO 2 TABLETS BY MOUTH ONCE PRIOR TO MRI 06/07 completed Not Available Not Available Not Available amlodipine 10 mg tablet TAKE 1 TABLET BY MOUTH DAILY active Not Available Not Available No t Available gabapentin 300 mg capsule 11/03 completed Not Available Not Available Not Available aspirin 81 mg chewable tablet Chew 1 tablet every day by oral route. 05/09 completed Not Available Not Available Not Available aspirin 81 mg tablet Take 1 tablet every day by oral route. active Not Available Not Available No t Available hydrochloro thiazide 25 mg tablet TAKE 1 TABLET BY MOUTH DAILY active Not Available Not Available No t Available albuterol sulfate HFA 90 mcg/actuati on aerosol inhaler INHALE 2 PUFFS BY MOUTH EVERY 4 HOURS NEEDED active Not Available Not Available No t Available Vigamox 0.5 % eye drops 07/03 completed Not Available Not Available Not Available Durezol 0.05 % eye drops 07/03 completed Not Available Not Available Not Available Suprep Bowel Prep Kit 17.5 gram-3.13 gram-1.6 gram oral solution 07/10 completed Not Available Not Available Not Available Chantix Continuing Month Box 1 mg tablet Take 1 tablet twice a day by oral route. active Not Available Not Available No t Available Chantix Starting Month Box 0.5 mg (11)-1 mg (42) tablets in dose pack take as directed active Not Available Not Available No t Available Ilevro 0.3 % eye drops,suspe nsion 07/03 completed Not Available Not Available Not Available Fluzone High-Dose Quad 2020 (PF) 240 mcg/0.7 mL IM syringe ADM 0.7ML IM UTD 09/19 completed Not Available Not Available Not Available Paxlovid 300 mg (150 mg x 2)-100 mg tablets in a dose pack TAKE DIRECTED FOR 5 DAYS 12/02 completed Not Available Not Available Not Available Vitals Date Recorded Body height Body mass index (BMI) Body weight Body temperature Heart rate Respiratory rate Oxygen saturation Oxygen saturation in Arterial blood by Pulse oximetry Pain severity - 0-10 verbal numeric rating [Score] - Reported Systolic blood pressure Diastolic blood pressure Provider Name and Address Organization Details Last Updated DateTime 4 180.34 cm 31.2 kg/m2 063662. 69 g 98 [degF] 84 /min 18 /min 92 % 92 % 0 102 mm[Hg] 54 mm[Hg] Thiago Soto LPN [place] [facility] [place] [employer] [facility] 4 10:17:12 Date Recorded Body height Body mass index (BMI) Body weight Body temperature Heart rate Respiratory rate Oxygen saturation Oxygen saturation in Arterial blood by Pulse oximetry Pain severity - 0-10 verbal numeric rating [Score] - Reported Systolic blood pressure Diastolic blood pressure Provider Name and Address Organization Details Last Updated DateTime 4 180.34 cm 31.8 kg/m2 484589. 06 g 98.2 [degF] 84 /min 20 /min 92 % 92 % 7 102 mm[Hg] 60 mm[Hg] Thiago Soto LPN [place] [employer] [facility] [employer] [facility] 4 11:48:24 Date Recorded Body height Body mass index (BMI) Body weight Body temperature Heart rate Systolic blood pressure Diastolic blood pressure Provider Name and Address Organization Details Last Updated DateTime 4 180.34 cm 33.5 kg/m2 717592. 17 g 97.3 [degF] 84 /min 144 mm[Hg] 70 mm[Hg] ROMAN Claudio [facility] [employer] [facility] 4 09:51:07 Date Recorded Body height Body mass index (BMI) Body weight Body temperature Heart rate Systolic blood pressure Diastolic blood pressure Provider Name and Address Organization Details Last Updated DateTime 5 180.34 cm 33.8 kg/m2 637020. 35 g 97.6 [degF] 84 /min 122 mm[Hg] 60 mm[Hg] Lois Hawthorne Yoselin [place] [employer] [facility] [employer] [facility] 5 11:23:47 Date Recorded Body height Body mass index (BMI) Body weight Body temperature Heart rate Oxygen saturation Oxygen saturation in Arterial blood by Pulse oximetry Pain severity - 0-10 verbal numeric rating [Score] - Reported Systolic blood pressure Diastolic blood pressure Provider Name and Address Organization Details Last Updated DateTime 5 180.34 cm 32.1 kg/m2 197549. 25 g 98.5 [degF] 90 /min 90 % 90 % 8 130 mm[Hg] 60 mm[Hg] Jessica Glasgow MA [facility] [employer] [facility] 5 09:58:10 Social History Question Answer Notes LastModified by Organization Details LastModified Time Tobacco Smoking Status Former Smoker Thiago Soto LPN [facility] [employer] [facility] 02/07/2024 13:31:47 Do You Have An Advance Directive? No Info Provided MIGRATION.030 [id number] Information not available 10/14/2022 What Is Your Level Of Alcohol Consumption? None MIGRATION.030 151859 Information not available 10/14/2022 Do You Wear A Helmet When Biking? No Does Not Bike [email or web address] Information not available 02/07/2024 Are You Blind Or Do You Have Difficulty Seeing? No MIGRATION.030 850142 Information not available 10/14/2022 Is Blood Transfusion Acceptable In An Emergency? Yes [email or web address] Information not available 02/07/2024 What Is Your Level Of Caffeine Consumption? Occasional MIGRATION.030 570539 Information not available 10/14/2022 How Much Tobacco Do You Chew? None MIGRATION.030 229431 Information not available 10/14/2022 In The 14 Days Before Symptom Onset, Have You Had Close Contact With A Laboratory-conf irmed COVID-19 While That Case Was Ill? No MIGRATION.030 284590 Information not available 10/14/2022 In The 14 Days Before Symptom Onset, Have You Had Close Contact With A Person Who Is Under Investigation For COVID-19 While That Person Was Ill? No MIGRATION.030 394190 Information not available 10/14/2022 Are You Currently Employed? No [email or web address] Information not available 02/07/2024 Are You Deaf Or Do You Have Serious Difficulty Hearing? Yes Loss Of Hearing Both Ears [email or web address] Information not available 02/07/2024 What Type Of Diet Are You Following? REGULAR MIGRATION.030 035271 Information not available 10/14/2022 Which Illicit Or Recreational Drugs Have You Used? None MIGRATION.030 184760 Information not available 10/14/2022 Do You Or Have You Ever Used E-cigarettes Or Vape? Never Used Electronic Cigarettes MIGRATION.030 711620 Information not available 10/14/2022 What Is The Highest Grade Or Level Of School You Have Completed Or The Highest Degree You Have Received? [id number] MIGRATION.030 271432 Information not available 10/14/2022 Do You Have An Electrostatic Air Filter? 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 4 [email or web address] Information not available 02/07/2024 On Those Days That You Engage In Moderate To Strenuous Exercise, How Many Minutes, On Average, Do You Exercise? 29 Information not available 02/07/2024 Have There Been Any Changes To Your Family Or Social Situation? No MIGRATION.0301 647587 Information not available 10/14/2022 What Is The Fluoride Status Of Your Home? Unknown MIGRATION.0301 991953 Information not available 10/14/2022 When Did You Quit Smoking? 1-5yearssincelastc igarette Information not available 02/07/2024 Are There Any Guns Present In Your Home? Yes [email or web address] Information not available 02/07/2024 Do You Have A Humidifier? No Information not available 11/22/2023 Do You Use Insect Repellent Routinely? No MIGRATION.0301 970972 Information not available 10/14/2022 Where Do You Live? SingleLevelHouse MIGRATION.0301 430713 Information not available 10/14/2022 Presence Of Domestic Violence No Information not available 02/07/2024 Guns Present In The Home? Yes [email or web address] Information not available 02/07/2024 Are You Able To Care For Yourself? Yes [email or web address] Information not available 02/07/2024 Are You Blind Or Do Yo Have Difficulty Seeing? No Information not available 02/07/2024 Are You Deaf Or Do You Have Serious Difficulty Hearing? Yes [place] [email or web address] Information not available 02/07/2024 General Stress Level? Low [email or web address] Information not available 02/07/2024 Live Alone Of With Others? With Others [email or web address] Information not available 02/07/2024 Do You Have A Medical Power Of Commissioner Of Internal Revenue? No MIGRATION.0301 980521 Information not available 10/14/2022 Do You Have Moisture Problems In Your Home? No Information not available 11/22/2023 What Was The Date Of Your Most Recent Tobacco Screening? 11/27/2024 Information not available 11/27/2024 Have You Ever Been Counseled For Unhealthy Alcohol Use? No MIGRATION.0301 500754 Information not available 10/14/2022 Do You Have Any Pets? Yes Dog [email or web address] Information not available 02/07/2024 What Is Your Relationship Status? MIGRATION.0301 968908 Information not available 10/14/2022 Do You Use Your Seat Belt Or Car Seat Routinely? Yes MIGRATION.0301 608982 Information not available 10/14/2022 Do You Have Smoke And Carbon Monoxide Detectors In Your Home? Yes MIGRATION.0301 298353 Information not available 10/14/2022 At What Age Did You Start Smoking Tobacco? 20 MIGRATION.030 482058 Information not available 10/14/2022 Are You Passively Exposed To Smoke? No [email or web address] Information not available 02/07/2024 Do You Or Have You Ever Used Smokeless Tobacco? Never Used Smokeless Tobacco MIGRATION.030 358098 Information not available 10/14/2022 Are There Any Smokers In Your House? No [email or web address] Information not available 02/07/2024 How Much Tobacco Do You Smoke? No [email or web address] Information not available 02/07/2024 What Types Of Sporting Activities Do You Participate In? None MIGRATION.0301 137292 Information not available 10/14/2022 Do You Feel Stressed (tense, Restless, Nervous, Or Anxious, Or Unable To Sleep At Night)? [id number] MIGRATION.0301 600479 Information not available 10/14/2022 Do You Use Any Illicit Or Recreational Drugs? No MIGRATION.0301 012342 Information not available 10/14/2022 Do You Use Sunscreen Routinely? No MIGRATION.0301 564344 Information not available 10/14/2022 Has Tobacco Cessation Counseling Been Provided? No [email or web address] Information not available 02/07/2024 How Many Years Have You Smoked Tobacco? 43 [email or web address] Information not available 02/07/2024 Have You Recently Traveled Abroad? No MIGRATION.0301 473314 Information not available 10/14/2022 Do You Have Any Dietary Restrictions? No MIGRATION.0301 631755 Information not available 10/14/2022 Do You Or Have You Ever Used Any Other Forms Of Tobacco Or Nicotine? No MIGRATION.0301 347534 Information not available 10/14/2022 Sex: Male Functional Status Question Answer Note LastModified by Organizat ion Details LastModified Time Do you have difficulty walking or climbing stairs? Yes MIGRATION.477196 5688 Information not available 10/14/2022 Do you have transportation difficulties? No MIGRATION.918760 8691 Information not available 10/14/2022 Are you able to walk? YESWOREST MIGRATION.797174 3797 Information not available 10/14/2022 Do you have difficulty doing errands alone? No MIGRATION.146888 7894 Information not available 10/14/2022 Are you able to care for yourself? Yes MIGRATION.663947 9633 Information not available 10/14/2022 Do you have difficulty dressing or bathing? No MIGRATION.574124 8808 Information not available 10/14/2022 What is your exercise level? Occasional walks dog MIGRATION.420006 9717 Information not available 10/14/2022 Mental Status Question Answer Note LastModified by Organizat ion Details LastModified Time Do you have difficulty concentrating, remembering or making decisions? No MIGRATION.[id number] 6 Information not available 10/14/2022 Family History Relationship Description Onset Age of this Age Resolved Age Notes LastModified by Organization Details LastModified Time Brother Essential hypertension MIGRATION.371 [id number] Not available 10/14/2022 04:43:06 Father Myocardial infarction deceas ed MIGRATION.178 [id number] Not available 10/14/2022 04:43:06 Medical History Condition Response NERVE DISEASE N BLINDNESS N RHEUMATIC FEVER N KIDNEY STONES N BLADDER PROBLEMS N MRSA N OTHER # 1 N POLIO N LUNG DISEASE/DISORDER N RADIATION / CHEMOTHERAPY N COPD N Other # 2 N BLOOD DISEASES N EAR OR HEARING PROBLEMS N MUMPS N DEPRESSION (INCLUDING POST ) N BOWEL PROBLEMS N STROKE/TIA N ULCERS N BENIGN PROSTATIC HYPERPLASIA N MEASLES N MYOCARDIAL INFARCTION N OBESITY N GERD/NAUSEA N ANEURYSM N URINARY/BLADDER/KIDNEY PROBLEMS N CORONARY ARTERY DISEASE (CAD) N ADDICTION CONCERNS N Impotence N ENDOMETRIOSIS N USE OF BLOOD THINNERS N SKIN PROBLEMS N GASTROINTESTINAL DISORDER N PERIPHERAL VASCULAR DISEASE Y MUSCLE,JOINT OR BONE PROBLEMS N GASTROINTESTINAL BLEEDING N BLOOD CLOTS N ASTHMA N CATARACTS N ERECTILE DYSFUNCTION N VARICOSITIES N GI PROBLEMS N Low Testosterone N INFERTILITY N AIDS/HIV N CHEMOTHERAPY / RADIATION N LIVER DISEASE N MALE HYPOGONADISM N HYPERTENSION Y Deficiency N TOURETTE'S N ANXIETY DISORDER N BLOOD TRANSFUSION N ANEMIA/BLOOD DISORDER N CHRONIC EAR INFECTIONS N BRONCHITIS Y TUBERCULOSIS N GLAUCOMA N FOOT PROBLEM N DIVERTICULITIS N SLEEP APNEA Y CHICKENPOX N INFECTIOUS DISEASE N PROSTATE N HEART ARRHYTHMIA N INSOMNIA N HIGH CHOLESTEROL / HYPERLIPIDEMIA Y HYPERTHYROIDISM N EYE PROBLEMS N EDEMA N CHRONIC PAIN SYNDROME N HYPOTHYROIDISM N CONSTIPATION N CAROTID BLOCKAGE Y BACK / NECK PROBLEMS N HAVE YOU BEEN HOSPITALIZED OR SEEN IN [facility] IN THE PAST YEAR ? N ATHEROSCLEROSIS N BREAST PROBLEMS N DIALYSIS N ECZEMA N OSTEOPOROSIS N ARTHRITIS Y APPENDICITIS N DIABETES, TYPE N BAD TEETH N ENT N HEARTBURN / REFLUX N AUTISM SPECTRUM DISORDER (ASD) N HEPATITIS / LIVER DISEASE N GOUT N SLEEP DISORDER N ALZHEIMER'S DISEASE N Brain Problems N HERPES N DEMENTIA N SEIZURES/EPILEPSY N HEADACHES/MIGRAINES N VASCULAR DISEASE N PACEMAKER N Blood Disorder N DIZZINESS N KIDNEY DISEASE N HEART DISEASE/HEART PROBLEMS N MULTIPLE SCLEROSIS N CARDIAC ARRHYTHMIA N CANCER: SPECIFY Y Gall Stones N ATRIAL FIBRILLATION N PULMONARY EMBOLISM N AUTOIMMUNE DISEASE N Immunizations Vaccine Type Date Status Note Provider Nam e and Address Organization Details Recorded Time COVID-19, mRNA, LNP-S, PF, 100 mcg/0.5mL dose or 50 mcg/0.25mL dose 1 completed Lois Hawthorne RMYoselin vanegas, [employer] [facility] [employer] 08/02/2024 09:22:40 COVID-19, mRNA, LNP-S, PF, 100 mcg/0.5mL dose or 50 mcg/0.25mL dose 1 completed ROMAN Claudio, [employer] 08/02/2024 09:22:40 Influenza, high-dose, quadrivalent, PF 0 completed Not Available [facility] 04/16/2023 07:47:53 COVID-19, mRNA, LNP-S, PF, 100 mcg/0.5mL dose or 50 mcg/0.25mL dose 1 completed REMEDIOS ClaudioA romina, [employer] 08/02/2024 09:22:40 Influenza, high-dose, trivalent, PF 9 completed Not Available [facility] 04/16/2023 07:47:53 pneumococcal polysaccharide PPV23 8 completed Not Available [facility] 04/16/2023 07:47:53 Influenza, high-dose, trivalent, PF 8 completed Not Available [facility] 04/16/2023 07:47:53 Influenza, split virus, quadrivalent, PF 5 completed Not Available [facility] 04/16/2023 07:47:53 Pneumococcal conjugate PCV 13 4 completed Lois Hawthorne RMA null, [facility] [employer] [facility] 08/02/2024 09:22:40 Influenza, split virus, trivalent, PF 4 completed Lois Hawthorne RMA null, [facility] [employer] [facility] 08/02/2024 09:22:40 Influenza, high-dose, quadrivalent, PF 3 completed Geo Kuo MD [address] [place] [address], [facility] [address], [place], [address], [facility] [employer] [facility] 06/07/2023 22:43:16 Influenza, high-dose, trivalent, PF 4 completed Lois Hawthorne RMA null, [facility] [employer] [facility] 05/31/2024 10:56:43 Past Encounters Encounter ID Performer Location Encounter Start Date Encounter Closed Date Diagnosis/Indication Diagnosis SNOMED-CT Code Diagnosis ICD10 Code Diagnosis Note [id number] [facility] [address] [facility] [address] [address] 01/24/2021 00:00:00 01/26/2021 21:53:40 [id number] [facility] [place] [address] [place], [place] [address]e., [address] [address] 05/16/2021 00:00:00 05/17/2021 12:31:56 [id number] [facility] [place] [address] [place] [address] Ave., [facility] 15 [place] [address] 11/12/2021 00:00:00 11/12/2021 21:11:22 [id number] [facility] [place] [address] [place], [place] [address]e., [address] [address] 06/15/2022 00:00:00 07/26/2022 16:11:43 [id number] Geo Kuo MD [facility] [place] [address] [facility] [address] [address] 12/02/2022 15:53:12 12/02/2022 17:14:53 Bronchitis 84824342 J40 [id number] Geo Kuo MD [facility] Internal Med [facility] [address] [facility] [address] [address] 02/08/2023 11:14:16 02/08/2023 12:15:24 Benign essential hypertension 3176557 I10 Carotid ar anurag stenosis 88002225 I65.29 Chronic ly mphoid leukemia, disease 10916727 C91.90 Osteoarthritis 304868571 M19.90 [id number] Geo Kuo MD [facility] Internal Med [facility] [address] [facility] [address] [address] 06/07/2023 09:44:38 06/07/2023 10:59:56 Administration of influenza vaccine 40570758 Z23 Peripheral vascular disease 074178778 I73.9 Coronary arteriosclerosis 85898613 I25.10 Benign ess ential hypertension 7692715 I10 Chronic ly mphoid leukemia, disease 48908433 C91.90 [id number] Wai wilburn MD [facility] [place] [address] [place] [address] , [facility] [place] [address] 10/06/2023 15:39:29 10/06/2023 16:43:54 Screening - NAD 957534578 Z13.9 C-scope: Get this if not done Get yearly flu shotGet Tdap if not doneGet shingrix vaccineGet RSV vaccine RTC in 3 months, do labs, ER if worse, he and his verbalized his understand ing of the above Essential hypertension 15730077 I10 On ASA 81mg dailyOn amlodipine 10mg dailyOn HCTZ 25mg dailyGet labs Hyperlipidemia 59790281 E78.5 On ASAOn atorvastat in 80mg dailyGet labs Screening for malignant neoplasm of prostate 869383575 Z12.5 Smoker 91887932 F17.200 Advised to quitGet LDCTAs per oncology note US AAA 4.7 Obstructiv e sleep apnea syndrome 64506940 G47.33 On CPAPNeeds to see Dr Kilgore Chronic ly mphoid leukemia, disease 02676398 C91.10 MRI brain 06/01/2023 : Dr Astudillo for headaches Dr Astudillo 09/08/2023 , f/u 6 months Peripheral vascular disease 833352943 I73.[address] 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 Screening for malignant neoplasm of colon 757284253 Z12.11 [id number] Paola Kilgore MD [facility] Pulmonolo gy [address] [place] [address] 11/22/2023 08:23:05 11/23/2023 09:06:20 Sleep apnea 51865364 G47.30 G47.33 G47.61 G47.36 Smoker 77897579 F17.218 F17.219 Z87.830 [id number] Wai wilburn MD [facility] Internal Med [facility] [address] , [facility] [place] [address] 02/07/2024 09:55:28 02/07/2024 11:04:10 Screening - NAD 008183220 Z13.9 C-scope: Get this if not done Get yearly flu shotGet Tdap if not doneGet shingrix vaccineGet RSV vaccine RTC in 2 months, do labs, ER if worse, he and his verbalized his understand ing of the above Essential hypertension 62605267 I10 On ASA 81mg dailyOn amlodipine 10mg dailyOn HCTZ 25mg dailyGet labs Hyperlipidemia 90523328 E78.5 On ASAOn atorvastat in 80mg dailyGet labs Smoker 28681020 F17.200 Advised to quitLDCT 10/21/2023 : Emphysema, CAD, LANAs per oncology note US AAA 4.7 Obstructiv e sleep apnea syndrome 28451884 G47.33 On CPAPNeeds to see Dr Magui Nixon ly mphoid leukemia, disease 61824437 C91.10 MRI brain 06/01/2023 : Dr Astudillo for headaches Dr Astudillo 09/08/2023 , f/u 6 monthsWill get another referral to Dr Eric Peripheral vascular disease 710021047 I73.[address] 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 11/30/2023 : ECHO 55%, US Carotid: sofya Scales, US AAA: 4.4 cm OV 02/07/2024 : Will see Dr Fragoso in [facility] as per his history Screening for malignant neoplasm of colon 248447641 Z12.11 Prostate s pecific antigen above reference range 852336394 R97.20 High normal PSAGet a referral to urology Mediastina l lymphadenopathy 13666584 R59.0 Needs to see oncology Adult heal th examination 712084542 Z00.00 Screening for disorder 773869710 Z13.9 [id number] Wai wilburn MD [facility] Internal [facility] [place] [address] [facility] [address] , [place] [address] 03/20/2024 11:28:06 03/20/2024 12:39:19 Screening - NAD 095820044 Z13.9 C-scope: Get this if not done Get yearly flu shotGet Tdap if not doneGet shingrix vaccineGet RSV vaccine RTC in 2 months, do labs, ER if worse, he verbalized his understand ing of the above Essential hypertension 20065931 I10 On ASA 81mg dailyOn amlodipine 10mg dailyOn HCTZ 25mg dailyGet labs Hyperlipidemia 05786001 E78.5 On ASAOn atorvastat in 80mg dailyGet labs Smoker 79527369 F17.200 Advised to quit!LDCT 10/21/2023 : Emphysema, CAD, LANAs per oncology note US AAA 4.7 Obstructiv e sleep apnea syndrome 83012152 G47.33 On CPAPNeeds to see Dr Kilgore Chronic ly mphoid leukemia, disease 32601770 C91.10 MRI brain 06/01/2023 : Dr Astudillo for headaches Dr Astudillo 09/08/2023 , f/u 6 monthsWill get another referral to Dr Eric Peripheral vascular disease 531053335 I73.[address] 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 11/30/2023 : ECHO 55%, US Carotid: sofya Scales, US AAA: 4.4 cm OV 02/07/2024 : Will see Dr Fragoso in [facility] as per his historyOV 03/20/2024 : States that he will see Dr Banegas Screening for malignant neoplasm of colon 804538298 Z12.11 Prostate s pecific antigen above reference range 790134199 R97.20 High normal PSAGet a referral to urology Mediastina l lymphadenopathy 73993682 R59.0 Needs to see oncology Hyperbilirubinemia 91667 006 E80.6 US Liver 03/07/2024 : [facility] Hepatomegaly 55546950 R1 6.0 US liver 03/07/2024 : Hepatomega ly, get a referral to GI [id number] Wai wilburn MD [facility] Internal [facility] [place] [address] [facility] , [place] [address] 05/31/2024 09:41:29 05/31/2024 10:18:41 Screening - NAD 328578363 Z13.9 C-scope: Get this if not done Get yearly flu shotGet Tdap if not doneGet shingrix vaccineGet RSV vaccine RTC in 2 months, do labs, ER if worse, he verbalized his understand ing of the above Essential hypertension 63793300 I10 On ASA 81mg dailyOn amlodipine 10mg dailyOn HCTZ 25mg dailyGet labs Hyperlipidemia 02362057 E78.5 On ASAOn atorvastat in 80mg dailyGet labs Smoker 50990489 F17.200 Advised to quit!LDCT 10/21/2023 : Emphysema, CAD, LANAs per oncology note US AAA 4.7 Obstructiv e sleep apnea syndrome 94163080 G47.33 On CPAPNeeds to see Dr Magui Nixon ly mphoid leukemia, disease 74991833 C91.10 MRI brain 06/01/2023 : Dr Astudillo for headaches Dr Astudillo 09/08/2023 , f/u 6 monthsDr Astudillo 03/08/2024 Peripheral vascular disease 617838769 I73.[address] 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 11/30/2023 : ECHO 55%, US Carotid: Dr Banegas, occlusion, US AAA: 4.4 cm OV 02/07/2024 : Will see Dr Fragoso in [facility] as per his historyOV 03/20/2024 : States that he will see Dr Tavares 05/31/2024 : See [facility] referral again provided Screening for malignant neoplasm of colon 269258692 Z12.11 Prostate s pecific antigen above reference range 816891163 R97.20 High normal PSAToday 05/31/2024 , states that he did see Dr Remi Mccoy l lymphadenopathy 23393474 R59.0 Needs to see oncology Hyperbilirubinemia 53901 006 E80.6 US Liver 03/07/2024 : [facility] Hepatomegaly 05335288 R1 6.0 US liver 03/07/2024 : Hepatomega ly, get a referral to GI Abdominal aortic aneurysm 608848358 I71.40 OV 05/31/2024 :Has seen Dr Fragoso as per Dr Astudillo's notes, states that he does have a f/u apt with Dr Fragoso again, he also has to see Dr Banegas [facility] Administra tion of influenza vaccine 68273801 Z23 [id number] Wai wilburn MD [facility] Primary Care [address] [place] [address] 08/28/2024 10:54:16 08/28/2024 12:04:08 Screening - NAD 337742652 Z13.9 C-scope: Get this if not done, referred again 08/28/2024 Get yearly flu shotGet Tdap if not doneGet shingrix vaccineGet RSV vaccineUTD on PCV #13 and #23 RTC in 1 months, do labs, ER if worse, he verbalized his understand ing of the above Essential hypertension 07513436 I10 On ASA 81mg dailyOn amlodipine 10mg dailyOn HCTZ 25mg dailyGet labs Hyperlipidemia 03489487 E78.5 On ASAOn atorvastat in 80mg dailyGet labs Smoker 22126983 F17.200 Advised to quit!LDCT 10/21/2023 : Emphysema, CAD, LANAs per oncology note US AAA 4.7 Obstructiv e sleep apnea syndrome 60762089 G47.33 On CPAPNeeds to see Dr Magui Nixon ly mphoid leukemia, disease 50565142 C91.10 MRI brain 06/01/2023 : Dr Astudillo for headaches Dr Astudillo 09/08/2023 , f/u 6 monthsDr Astudillo 03/08/2024 Peripheral vascular disease [id number] I73.[address] 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 11/30/2023 : ECHO 55%, US Carotid: Dr Banegas, occlusion, US AAA: 4.4 cm OV 02/07/2024 : Will see [facility]agoso [facility] as per his historyOV 03/20/2024 : States that he will see Dr Tavares 05/31/2024 : See [facility] referral again provided Screening for malignant neoplasm of colon [id number] Z12.11 Prostate s pecific antigen above reference range 084805386 R97.20 Get a referral to urology Mediastina l lymphadenopathy 69215262 R59.0 Needs to see oncology Hyperbilirubinemia 83993 006 E80.6 US Liver 03/07/2024 : Hepatomega ly Hepatomegaly 51089317 R1 6.0 US liver 03/07/2024 : Hepatomega ly, get a referral to GI Abdominal aortic aneurysm [id number] I71.40 OV 05/31/2024 :Has seen Dr Fragoso as per Dr Astudillo's notes, states that he does have a f/u apt with Dr Fragoso again, he also has to see Dr Banegas [facility] Pain of le ft hip joint [id number] 12804 M25.552 Get xrays Addnedum: 08/30/2024 : Xrays noted, did get a call from radiology regarding aneurysm, case sent to triage [id number] Wai wilburn MD [facility] Primary Care [address] [place] [address] 11/27/2024 09:37:57 11/27/2024 11:01:19 Screening - NAD [id number] Z13.9 C-scope: Get this if not done, referred again 08/28/2024 Get yearly flu shotGet Tdap if not doneGet shingrix vaccineGet RSV vaccineUTD on PCV #13 and #23 RTC in 3 months, do labs, ER if worse, he verbalized his understand ing of the above Essential hypertension 10425303 I10 On ASA 81mg dailyOn amlodipine 10mg dailyOn HCTZ 25mg dailyGet labs Hyperlipidemia 76583291 E78.5 On ASAOn atorvastat in 80mg dailyGet labs Smoker 67905880 F17.200 Advised to quit!LDCT 10/21/2023 : Emphysema, CAD, LANAs per oncology note US AAA 4.7 Obstructiv e sleep apnea syndrome 65306425 G47.[address] Magui Nixon ly mphoid leukemia, disease 57746754 C91.10 MRI brain 06/01/2023 : Dr Astudillo for headaches Dr Astudillo 09/08/2023 , f/u 6 monthsDr Astudillo 03/08/2024 Peripheral vascular disease 139481636 I73.[address] 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 11/30/2023 : ECHO 55%, US Carotid: Dr Banegas, occlusion, US AAA: 4.4 cm OV 02/07/2024 : Will see Dr Fargoso in [facility] as per his historyOV 03/20/2024 : States that he will see Dr BanegasOV 05/31/2024 : See [facility] referral again provided Screening for malignant neoplasm of colon 304693919 Z12.11 Prostate s pecific antigen above reference range 498917088 R97.20 Get a referral to urology Mediastina l lymphadenopathy 79812492 R59.0 Needs to see oncology Hyperbilirubinemia 41881 006 E80.6 US Liver 03/07/2024 : Hepatomega ly Hepatomegaly 64820538 R1 6.0 US liver 03/07/2024 : Hepatomega ly, get a referral to GI Abdominal aortic aneurysm 300068456 I71.40 OV 05/31/2024 :Has seen Dr Fragoso as per Dr Astudillo's notes, states that he does have a f/u apt with Dr Fragoso again, he also has to see Dr Banegas [facility] Pain of le ft hip joint [id number] 15815 M25.552 Get xrays Addnedum: 08/30/2024 : Xrays noted, did get a call from radiology regarding aneurysm, case sent to triage Pain of bi lateral knee joints [id number] 19481 M25.561 M25.562 Health Concerns Section Related Observation LastModified by Organization Detai ls LastModified Time None Recorded Concern Status LastModified by Organization Details LastModified Time None Recorded Advance Directives Directive N: info provided Payers Encounter Date Sequence Insurance Name Policy Number Policy Howell Covered Member ID Howell Member ID Guarantor Name 02/07/2024 1 [facility] (MEDICARE REPLACEMENT/A DVANTAGE - HMO) [id number] Geo Kay [id number] Geo Kay 03/20/2024 1 [facility] (MEDICARE REPLACEMENT/A DVANTAGE - HMO) [id number] Geo Kay [id number] Ego Susan Quinten 05/31/2024 1 [facility] (MEDICARE REPLACEMENT/A DVANTAGE - HMO) [id number] Geo Kay [id number] Geo Davis Quinten 08/28/2024 1 [facility] (MEDICARE REPLACEMENT/A DVANTAGE - HMO) [id number] Geo Kay [id number] Geo Susan Quinten 11/27/2024 1 [facility] (MEDICARE REPLACEMENT/A DVANTAGE - HMO) [id number] Geo Kay [id number] Geo Kay Notes Date Note Type Note Provider Name and Address Organization Details Recorded Time 02/07/2024 text/html OV 10/06/2023:He re to establish care Past Hx:SHEREE Reviewed social family and surgical history He is here to discuss above and get labs Wai Negrete MD [address], [address], [place], [address], [employer] 02/08/2024 12:22:59 03/20/2024 text/html OV 10/06/2023:He re to establish care Past Hx:SHEREE Reviewed social family and surgical history He is here to discuss above and get labs OV 03/20/2024: Here for his f/u apt, he is doing well today, he has done labs on 02/08/2024, states that he did not do the consults provided to him as he 'just looked' at all his paperwork today, he is doing well, but states that since he has stopped smoking, he has gained weight as he is 'eating everything' Wai Negrete MD [address], [address], [place], [address], [employer] 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 Wai Negrete MD [address], [place], [address], [facility] [employer] 05/31/2024 10:54:20 08/28/2024 text/html OV 10/06/2023:He re to establish care Past Hx:SHEREE Reviewed social family and surgical history He is here to discuss above and get labs OV 03/20/2024: Here for his f/u apt, he is doing well today, he has done labs on 02/08/2024, states that he did not do the consults provided to him as he 'just looked' at all his paperwork today, he is doing well, but states that since he has stopped smoking, he has gained weight as he is 'eating everything' OV 05/31/2024: Here for his f/u apt, he feels well, 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 OV 08/28/2024: Here for his f/u apt, he is doing well today,he did sustain a fall and hit his back, mild LBP now, no N/T or weakness noted, would like to get xrays Wai Negrete MD [address], [address], [place], [address], [facility] [employer] 09/11/2024 09:20:59 11/27/2024 text/html OV 10/06/2023:He re to establish care Past Hx:SHEREE Reviewed social family and surgical history He is here to discuss above and get labs OV 03/20/2024: Here for his f/u apt, he is doing well today, he has done labs on 02/08/2024, states that he did not do the consults provided to him as he 'just looked' at all his paperwork today, he is doing well, but states that since he has stopped smoking, he has gained weight as he is 'eating everything' OV 05/31/2024: Here for his f/u apt, he feels well, 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
--- OUTSIDE RECORDS SUMMARY | 2024-11-28 10:18 | XMS_ITS | Encounter Summary ---
Author Organization [employer] Address [address] [place] [address] Care Team Providers Care Double Bass Player Name Role Phone Nba Negrete MD Primary Care Provider Encounter Details Date Type Department Care Team (Late st Contact Info) Description 02/18/2007 Outpatient Historical [facility] [address] 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
--- OUTSIDE RECORDS SUMMARY | 2024-11-28 10:18 | XMS_ITS | Clinical Summary ---
Author Organization [facility] Address [address] [place] [address] Phone Care Team Providers Care Cancer Program Consultant Name Role Phone Nba Negrete MD Primary Care Provider Allergies No known active allergies Medications atorvastatin (LIPITOR) 80 mg tablet Take 1 Tablet by mouth daily. Active amLODIPine (NORVASC) 10 mg tablet Take 1 Tablet by mouth daily. 2 Active aspirin (ECOTRIN EC) 81 mg Tablet, Delayed Release (E.C.) Take 81 mg by mouth daily. Active hydroCHLOROthia zide 25 mg tablet Take 25 mg by mouth daily. 2 Active albuterol sulfate HFA 90 mcg/actuation aerosol inhaler Take 2 Puffs by inhalation every 4 hours as needed for Shortness of Breath. 2 Active Active Problems No known active problems Encounters Date Type Department Care Team Description 11/21/2024 External Device Data [facility] ABSTRACTION Provider, Abstract 11/01/2024 External Device Data [facility] ABSTRACTION Provider, Abstract 10/23/2024 External Device Data [facility] ABSTRACTION Provider, Abstract 10/10/2024 External Device Data [facility] ABSTRACTION Provider, Abstract 09/05/2024 External Device Data [facility] ABSTRACTION Provider, Abstract from Last 3 Months Family History Medical History Relation Name Comments No Known Problems Brother 1 Heart Disease Brother 2 No Known Problems Child 1 No Known Problems Child 2 Heart Disease Father No Known Problems Mother No Known Problems Sister 1 Relation Name Status Comments Brother 1 Alive Brother 2 Child 1 Alive Child 2 Alive Father Mother Sister 1 Alive Sister 2 Alive Social History Tobacco Use Types Packs/Day Years Used Date Smoking Tobacco: Former Cigarettes 1 50 Q uit: 12/15/2023 Alcohol Use Standard Drinks/Week Comments Not Currently 0 (1 standard drink = 0.6 oz pure alcohol) hasnt drank since stroke 1998 Sex and Gender Information Value Date Recorded Sex Assigned at Not on file 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 Gender Identity Not on file Sexual Orientation Not on file Last Filed Vital Signs Vital Sign Reading Time Taken Comments Blood Pressure 137/72 02/14/2024 1:34 PM CDT Pulse 76 02/14/2024 1:34 PM CDT Temperature 36.9 C (98.4 F) 02/14/2024 1:34 PM CDT Respiratory Rate 20 02/14/2024 1:34 PM CDT Oxygen Saturation 90% 02/14/2024 1:34 PM CDT Inhaled Oxygen Concentration - - Weight 99.8 kg (220 lb) 02/14/2024 1:34 PM CDT Height 180.3 cm (5' 11 ) 02/14/2024 1:34 PM CDT Body Mass Index 30.68 02/14/2024 1:34 PM CDT Plan of Treatment Health Maintenance Due Date Last Done Comments DTAP/TDAP/TD VACCINES (1 - Tdap) 1967 ZOSTER VACCINE (1 of 2) 1967 Lung Cancer Screening 1998 RSV VACCINE (60+ or ) (1 - 1-dose 75+ series) 2023 INFLUENZA VACCINE (#1) 2024 , 07/02/2020, 06/28/2019, Additional history exists COVID-19 Vaccine ( - 2023-2 5 season) 2024 08/05/2021, 12/05/2020, 11/07/2020 PNEUMOCOCCAL VACCINE 50+ YEARS Completed 07/11/2018 , 07/09/2014 Insurance [facility] [employer] MATHIS [address] [address] [place] [address] Care Teams Cancer Program Consultant Relationship Specialty Start Date End Date Nba Negrete MD PCP - General Internal Medicine 02/11/24
--- OUTSIDE RECORDS SUMMARY | 2024-11-28 10:18 | XMS_ITS | Patient Health Record ---
Author Organization [facility] Address [address] [place] [address] Care Team Providers Care Marketing Specialist Name Role Phone Mannie Casillas Primary Care Provider Reason For Referral No Information Immunizations Vaccine Route Administration Date Status Comme nts COVID-19 Moderna 2nd IM Intramuscular 12/05/2020 Administe red COVID-19 Moderna 1ST IM Intramuscular 11/07/2020 Administe red Plan Of Treatment No Information Insurance Providers Payer Name Payer Address Payer Phone Subscriber Number Group Number Insured Name Patient Relationship to Insured Coverage Start Date Coverage End Date [facility] [address] [place] [address] [id number] Geo Shipley Self - patient is the insured
--- OUTSIDE RECORDS SUMMARY | 2024-11-28 10:18 | XMS_ITS | Encounter Summary ---
Author Organization [employer] [facility] Address 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 Gender Identity Not on file Sexual Orientation Not on file documented as of this encounter Plan of Treatment Not on file documented as of this encounter Procedures Procedure Name Priority Date/Time Associated Diagnosis Comments MRI LUMBAR W WO CONTRAST Routine 06/21/2008 9:18 AM HOUSE PARENT POC CREATININE Routine 06/21/2008 9:14 AM HOUSE PARENT documented in this encounter Results * MRI LUMBAR W WO CONTRAST (06/21/2008 9:18 AM HOUSE PARENT) Anatomical Region Laterality Modality Spine Other 06/21/2008 9:18 AM HOUSE PARENT Narrative 06/21/2008 7:20 PM HOUSE PARENT [place] [address] [place], [place] [address] Admit Date: 06/21/2008 GEO KAY Sex: M Admit Prov: LORENZO NUÑEZ Date: 1950 Primary Care Prov: GEO BRAVO CMRN: [id number] [id number] [facility] Ordering Prov: N/A Accession Number: [id number] Interpretation MR IMAGING OF LUMBAR SPINE WITH AND WITHOUT IV CONTRAST, 06/21/2008 History: Postop. Low back pain with left leg pain. Scan Protocol: The patient was scanned with standard postoperative spine protocol. Comparison is made to prior study of 04/07/2007. Findings: Vertebra have normal marrow signal intensity. Conus appears normal. L5-S1 level has facet joint hypertrophy but no disc herniation or stenosis. L5 level is normal. L4-L5 was earlier the site of a very large disc herniation. Patient has undergone hemilaminotomy. There appears to be a recurrent central disc herniation. This is slightly compressing the left L5 nerve root against the left facet joint. There was a right T2 area in the spinous process of L5 on the prior exam which is not visible on today's study. L4 level is normal in AP diameter. L3-L4 has a small central disc herniation which is slightly more pronounced than on the prior exam. L3 level is normal in AP diameter. L2-3 has a mild disc bulge. L2 level is normal. L1-2 is without disc herniation or stenosis. 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 Slight increase in size of small central disc herniation at L3-L4 level since prior exam. . Dictated by: DANIELA PLUNKETT 06/21/2008 10:05 Electronically signed by: DANIELA PLUNKETT 06/21/2008 19:19 Transcribed: 06/21/2008 10:13 [facility] Procedure Note Daniela Plunkett MD - 06/21/2008 [facility] [address], [place] [address] Admit Date: 06/21/2008 GEO KAY Sex: M Admit Prov: LORENZO NUÑEZ Date: 1950 Primary Care Prov: GEO BRAVO CMRN: [id number] Room: [facility] SSN: [id number] IMAGING SERVICES Ordering Prov: N/A Interpretation MR IMAGING OF LUMBAR SPINE WITH AND WITHOUT IV CONTRAST, 06/21/2008 History: Postop. Low back pain with left leg pain. Scan Protocol: The patient was scanned with standard postoperativespine protocol. Comparison is made to prior study of 04/07/2007. Findings: Vertebra have normal marrow signal intensity. Conus appears normal.L5-S1 level has facet joint hypertrophy but no disc herniation or stenosis.L5 level is normal. L4-L5 was earlier the site of a very large disc herniation. Patient has undergone hemilaminotomy. There appears to yaz recurrent central disc herniation. This is slightly compressing theleft L5 nerve root against the left facet joint. There was a right T2 area inthe spinous process of L5 on the prior exam which is not visible ontoday's study. L4 level is normal in AP diameter. L3-L4 has a small centraldisc herniation which is slightly more pronounced than on the prior exam.L3 level is normal in AP diameter. L2-3 has a mild disc bulge. L2 levelis normal. L1-2 is without disc herniation or stenosis. Impression: Central disc herniation recurrence at L4-L5 level, but compressingthe left L5 nerve root against the facet joint. Slight increase in size ofsmall central disc herniation at L3-L4 level since prior exam. . Dictated by: DANIELA PLUNKETT 06/21/2008 10:05 Electronically signed by: DANIELA PLUNKETT 06/21/2008 19:19 Transcribed: 06/21/2008 10:13 [facility] Lorenzo Nuñez MD MR ORDERABLES Final Result * POC CREATININE (06/21/2008 9:14 AM HOUSE PARENT) CREATININE POC 0.8 0.6 - 1.3 mg/dL [facility] GFR >60 >=60 mL/min/1.7 sq meter [facility] GFR, >60 >=60 mL/min/1.7 sq meter [facility] Capillary blood specimen (specimen) 06/21/2008 9:14 AM HOUSE PARENT 06/21/2008 9:14 AM HOUSE PARENT us Lorenzo Nuñez MD POINT OF CARE TESTING Edited INTERFACE SYSTEM Refer to clinic/hospital department [facility] CLIA# [id number] [address] [place] [address] documented in this encounter Visit Diagnoses Diagnosis Backache, unspecified documented in this encounter Care Teams Gear Cutting Machine Set Up Operator Relationship Specialty Start Date End Date Nba Negrete MD PCP - General Internal Medicine 02/11/24 documented as of this encounter
--- OUTSIDE RECORDS SUMMARY | 2024-11-28 10:18 | XMS_ITS | Encounter Summary ---
Author Organization [employer] [facility] Address 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 Gender Identity Not on file Sexual Orientation Not on file documented as of this encounter Plan of Treatment Not on file documented as of this encounter Procedures Procedure Name Priority Date/Time Associated Diagnosis Comments HEMOGLOBIN AND HEMATOCRIT Routine 02/18/2007 12:40 PM CDT BASIC METABOLIC PANEL Routine 02/18/2007 12:40 PM CDT documented in this encounter Results * (ABNORMAL) BASIC METABOLIC PANEL (02/18/2007 12:40 PM CDT) GLUCOSE 101(H) 65 - 99 mg/dL INTERFACE SYSTEM CREATININE 0.67 0.67 - 1.17 mg/dL INTERFACE SYSTEM CALCIUM 8.5 8.4 - 10.2 mg/dL INTERFACE SYSTEM BUN 16 6 - 20 mg/dL INTERFACE SYSTEM SODIUM 135 135 - 145 mmol/L INTERFACE SYSTEM POTASSIUM 4.6 3.5 - 4.9 mmol/L INTERFACE SYSTEM Comment:Slight hemolysis pre sent. Result may be falsely elevated. CHLORIDE 100 96 - 108 mmol/L INTERFACE SYSTEM CO2 21(L) 22 - 30 mmol/L INTERFACE SYSTEM GFR, >60 >=60 mL/min/1. 7 sq meter INTERFACE SYSTEM GFR >60 >=60 mL/min/1. 7 sq meter INTERFACE SYSTEM Comment: Estimated GFR rate interpretative information for both Americans and non- Americans is available on the [facility] Intranet at: [email or web address] Select: Lab Policies and Procedures Select: Reference Ranges - GFR 02/18/2007 12:4 0 PM CDT Lorenzo Pepper MD CHEMISTRY ORDERABLES Edited Performing Organization Address City/[facility] de Phone Number INTERFACE SYSTEM Refer to clinic/hospital department * HEMOGLOBIN AND HEMATOCRIT (02/18/2007 12:40 PM CDT) HEMOGLOBIN 15.8 13.6 - 16.5 g/dL INTERFACE SYSTEM HEMATOCRIT 45.3 40.0 - 48.0 % INTERFACE SYSTEM 02/18/2007 12:4 0 PM CDT Lorenzo Pepper MD HEMATOLOGY ORDERABLES Edited Performing Organization Address [facility] Co nd Phone Number INTERFACE SYSTEM Refer to clinic/hospital department documented in this encounter Visit Diagnoses Diagnosis Displacement of lumbar intervertebral disc without myelopathy- Primary documented in this encounter Care Teams Anime Designer Relationship Specialty Start Date End Date Nba Negrete MD PCP - General Internal Medicine 02/11/24 documented as of this encounter
--- OUTSIDE RECORDS SUMMARY | 2024-11-28 10:18 | XMS_ITS | CONTINUITY OF CARE DOCUMENT ---
Author Name majo kasper Address Unknown Organization [facility] Address [address] [place] [address] Phone [phone] Care Team Providers Care Life Sciences Manager Name Role Phone Makenzie ABRAHAM, Trini Brown Unavailable [phone] LLOYD LONG MD Unavailable [phone] WAI ROSE MD Unavailable [phone] PROBLEMS Condition Status Date Provider Notes Cardiology examination active Sherlyn Ventim iglia ENGINE MANAGER Peripheral vascular disease (PVD) active Am karis Ventimiglia ENGINE MANAGER Hyperlipidemia active Sherlyn Ventimiglia FN P Hypertension active Sherlyn Ventimiglia ENGINE MANAGER Body mass index (BMI) 30.0-30.9, adult active Sherlyn Ventimiglia ENGINE MANAGER CVA active Sherlyn Ventimiglia ENGINE MANAGER Nicotine dependence active Sherlyn Ventimigl ia ENGINE MANAGER CLL active Sherlyn Ventimiglia ENGINE MANAGER 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 ENCOUNTERS Date Type Provider Location Encounter Diag nosis - In-person encounter Office Visit Trini Banegas MD [facility] Pulmonary artery anomaly - In-person encounter Office Visit Trini Banegas MD [facility] Cardiology examinationPeripheral vascular disease (PVD)HyperlipidemiaHypertens ionBody mass index (BMI) 30.0-30.9, adultCVANicotine dependenceCLL VITAL SIGNS Date Observation Value Provider Body Mass Index (Ratio) 30.74 kg/m2 Pablito Banegas MD blood pressure, cuff size regular Issac Harvey blood pressure, diastolic 62 mm[Hg] Ta ryan Harvey blood pressure, systolic 138 mm[Hg] Tab ithcosmo Harvey oxygen saturation, oximetry 94 % Sherine Harvey respiratory rate E&M 12 /min Sherine Harvey pulse rate 111 /min Sherine Harvey weight E&M 220.4 [lb_av] Sherine Harvey height E&M 71 [in_i] Sherine Harvey Body Mass Index (Ratio) 30.68 kg/m2 Radu castillo Kandice blood pressure, diastolic 80 mm[Hg] Li nkLogic blood pressure, systolic 132 mm[Hg] Shabana kLogic blood pressure, cuff size regular Ke rri Gruenenandoer blood pressure, diastolic 80 mm[Hg] Ke rri Gruenenfelder blood pressure, systolic 132 mm[Hg] Angus Lea oxygen saturation, oximetry 93 % Griselda Lea respiratory rate E&M 12 /min Griselda brennan pulse rate 94 /min Griselda Morales lder weight E&M 220 [lb_av] Griselda Morales lder height E&M 71 [in_i] Griselda Morales lder HISTORY OF MEDICATION USE Medication Status Instructions Dates Provider Indications Com ments albuterol sulfate 90 mcg/actuation HFA aerosol inhaler active INHALE 2 PUFFS BY MOUTH EVERY 4 HOURS Griselda Lea amlodipine 10 mg tablet active TAKE 1 TABLET BY MOUTH EVERY DAY Griselda Lea atorvastatin 80 mg tablet active TAKE 1 TABLET BY MOUTH DAILY Grisedla Lea hydrochlorothiazide 25 mg tablet active TAKE 1 TABLET BY MOUTH EVERY DAY Griselda Lea aspirin 81 mg tablet,delayed release (DR/EC) active Take 1 tablet by mouth once a day Griselda Lea SOCIAL HISTORY Date Observation Value Provider personal history of marijuana use no Trini Banegas MD drug use no Trini wilburn MD alcohol use no Trini wilburn MD smoking history, tot al pack/day 0.5 Trini Banegas MD cigarette use yes Trini hardin MD smoking status Current every da y smoker Trini Banegas MD personal history of marijuana use no Sherlyn Ventimiglia [facility] drug use no Sherlyn Ventimig ayush [facility] alcohol use no Sherlyn Ventimig ayush [facility] smoking history, tot al pack/day 0.5 Sherlyn Ventimiglia [facility] cigarette use yes Sherlyn Ventimi glia [facility] smoking status Current every da y smoker Sherlyn Ventimiglia [facility] FAMILY HISTORY Family Member Condition Father CAD male <55 INSURANCE PROVIDERS Payer name Policy type / Coverage type [place] red republican ID AARP MEDICARE ADVANTAGE HMO-POS HMO [id number] ADVANCE DIRECTIVES Name Date DISCUSSED - NO DECISION MADE TREATMENT PLAN Date Name Performer Cardiology:Have him see vascular surgery at [facility], Dr. Richmond Banegas MD Cardiology:4-5 cigarettes/day Sa symone Banegas MD Cardiology: H is updated medication list for this problem includes: Atorvastatin 80 Mg Tablet (Atorvastatin) ..... Take 1 tablet by mouth daily Trini Banegas MD Cardiology: H is updated medication list for this problem includes: Amlodipine 10 Mg Tablet (Amlodipine) ..... Take 1 tablet by mouth every day Hydrochlorothiazide 25 Mg Tablet (Hydrochlorothiazide) ..... Take 1 tablet by mouth every day Aspirin 81 Mg Tablet,delayed Release (dr/ec) (Aspirin) ..... Take 1 tablet by mouth once a day BP today: 138/62 P rior BP: 132/80 (11/01/2023) Trini Banegas MD Cardiology:PA is enl arge.. Based on CT done 10/21/23 at [facility] rTini Banegas MD Cardiology: h istory of cva o n asa and statin w ill update testing Carotid from 11/30/23 CONCLUSIONS [facility]: 1 . Total occlusion of the right ICA, ECA, and CCA. 2 . Total occlusion of the left ICA. The left CCA and ECA are patent with moderate plaque. 3 . Left vertebral artery is patent with antegrade flow. No flow is seen in the right vertebral artery. Trini Banegas MD Cardiology:CONCLUSIO NS [facility] 11/30/23: 1 . Normal left ventricular systolic function. Normal left ventricular size. Mild concentric left ventricular hypertrophy. There is E to A wave reversal consistent with impaired LV relaxation. E/E': 6.4. Left ventricular ejection fraction is measured at 55 %. 2 . Normal right ventricular size. Normal right ventricular systolic function. 3 . No significant valvular abnormalities. Trini Banegas MD Cardiology:[facility] Cardiology:WILL PLAN ON GETTING PET CT SCAN WITH NUCLEAR IMAGING TO EVAL THE CORONARY CALCIFICATIONS AND FOR OCCLUSIVE CAD [facility] Cardiology:history o f cva o n asa and statin w ill update testing [facility] Cardiology:THERE IS CONCERN ABOUT AN ANEURYSM AND PT HAS HAS HAD ADVANCED PAD WITH PRIOR RIGHT CEA AND HAS HAD LOWER EXT PAD WILL ARRANGE FOR CAROTID ULTRASOUND AND CT AORTA WITH [facility] Cardiology:On max do se Lipitor H is updated medication list for this problem includes: Atorvastatin 80 Mg Tablet (Atorvastatin) ..... Take 1 tablet by mouth daily Lorenzo Woodson Cardiology: H is updated medication list for this problem includes: Amlodipine 10 Mg Tablet (Amlodipine) ..... Take 1 tablet by mouth every day Hydrochlorothiazide 25 Mg Tablet (Hydrochlorothiazide) ..... Take 1 tablet by mouth every day Aspirin 81 Mg Tablet,delayed Release (dr/ec) (Aspirin) ..... Take 1 tablet by mouth once a day BP today: 132/80 Lorenzo [place] Date Name CT Angio, Carotids Complete Echo CT Angio, abdomen an d pelvis CT Angio Chest (Aort a) Aorta Duplex Ultraso und Carotid Duplex Bilat eral Stress Cardiac PET-C T HISTORY OF PROCEDURES Procedure Date Procedure Name Provider Procedure Notes S tatus EKG Trini Banegas MD compl eted EKG Trini Banegas MD compl eted
[2024-11-28 10:28] LABS: Schistocytes None Seen
[2024-11-28 10:29] LABS: Atypical Lymphocytes Present; Smudge Cells MANY
[2024-11-28 10:48] LABS: Platelet Estimate Adequate (Adequate)
== END 2024-11-28 09:40 | disposition home or self-care (01) ==
PROVIDERS: PCP Internal Medicine; Visit Provider Internal Medicine
DX: C91.10 Chronic lymphocytic leukemia of B-cell type not having achieved remission (principal)
CPT/HCPCS: 36415; 80053; 85025

== ENCOUNTER 2024-12-25 09:36 | Emergency (ER) | payer MEDICARE, SELFPAY ==
--- NOTE | ~2024-12-25 | US_ITS ---
EXAMINATION: US venous doppler UE DATE: 12/25/2024 10:51 INDICATION: Left upper limb swelling TECHNIQUE: Grayscale images without and with compression and Doppler images of the bilateral upper ex tremity veins were obtained. COMPARISON: None. FINDINGS: The left internal jugular vein, subclavian vein, axillary vein, brachial vein, basilic vein, cephalic vein, radial vein, and ulnar vein are patent. Left axillary lymphadenopathy with multiple enlarged l ymph nodes the 2 largest measuring 4.6 x 3.1 x 1.7 cm and 3.8 x 2.1 x 1.5 cm. There is also mild left cervical lymphadenopathy with a few prominent but still normal-sized left axillary lymph nodes the l argest measuring 1.2 x 0.9 x 0.8 cm. IMPRESSION: 1. Patent left upper extremity veins. No evidence of venous thrombosis. 2. Nonspecific left cervical and left axillary lymphadenopathy which could be reactive given the repo rted recent concern for osteomyelitis at the left forearm. Differential would include lymphoma or met astatic disease in the appropriate clinical setting. Reviewed, dictated and finalized at location A. IMPRESSION: 1. Patent left upper extremity veins. No evidence of venous thrombosis. 2. Nonspecific left cervical and left axillary lymphadenopathy which could be r eactive given the reported recent concern for osteomyelitis at the left forearm . Differential would include lymphoma or metastatic disease in the appropriate clinical setting.
--- NOTE | ~2024-12-25 | XR_ITS ---
XR forearm LT 2V Ordering provider: Ksenia Pruitt APRN History: . rule out osteomyelitis, REDNESS, SWELLING ANTERIOR LT ARM . Comparison: None. FINDINGS: BONES: No acute fracture or dislocation. JOINT SPACES: Osteoarthritic changes of the elbow joint. Narrowing of the radiocarpal joint. SOFT TISSUES: Ossification of the insertion of the triceps tendon. IMPRESSION: No acute osseous abnormality left forearm. No evidence of osteomyelitis seen. Osteoarthritic changes of the elbow joint. Reviewed, dictated and finalized at location A.
--- OUTSIDE RECORDS SUMMARY | 2024-12-25 09:39 | XMS_ITS | Encounter Summary ---
Author Organization [facility] Address [address] [place] [address] Care Team Providers Care Charter Coach Driver Name Role Phone Nba Negrete MD Primary Care Provider Encounter Details Date Type Department Care Team (Latest Contact Info) Description 02/23/2007 Outpatient Historical HIS PATIENT IN A BED Lorenzo Pepper MD [address] [place] [address] -x0 (Work) Displacement of Lumbar Intervertebral Disc without Myelopathy (Primary Dx) Social History Tobacco Use Types Packs/Day Years Used Date Smoking Tobacco: Never Assessed Sex and Gender Information Value Date Recorded Sex Assigned at Not on file Legal Sex Male 4:56 AM HADOOP JAVA DEVELOPER Gender Identity Not on file Sexual Orientation [...] and non- Americans is available on the [facility] Intranet at: [email or web address] Select: Lab Policies and Procedures Select: Reference Ranges - GFR 02/18/2007 12:4 0 PM CDT Lorenzo Pepper MD CHEMISTRY ORDERABLES Edited Performing Organization Address City/[facility] de Phone Number INTERFACE SYSTEM Refer to clinic/hospital department * HEMOGLOBIN AND HEMATOCRIT (02/18/2007 12:40 PM CDT) HEMOGLOBIN 15.8 13.6 - 16.5 g/dL INTERFACE SYSTEM HEMATOCRIT 45.3 40.0 - 48.0 % INTERFACE SYSTEM 02/18/2007 12:4 0 PM CDT Lorenzo Pepper MD HEMATOLOGY ORDERABLES Edited Performing Organization Address [facility] [place] Phone Number INTERFACE SYSTEM Refer to clinic/hospital department documented in this encounter Visit Diagnoses Diagnosis Displacement of lumbar intervertebral disc without myelopathy- Primary documented in this encounter Care Teams Charter Coach Driver Relationship Specialty Start Date End Date Nba Negrete MD PCP - General Internal Medicine 02/11/24 documented as of this encounter
--- OUTSIDE RECORDS SUMMARY | 2024-12-25 09:39 | XMS_ITS | Clinical Summary ---
Author Organization [facility] Address [address] [place] [address] Phone Care Team Providers Care Brass Polisher Name Role Phone Nba Negrete MD Primary Care Provider Allergies No known active allergies Medications amLODIPine (NORVASC) 10 MG Tablet Take 10 mg by mouth daily. 2 Active hydroCHLOROthiaz suhail 25 MG Tablet Take 25 mg by mouth daily. 2 Active aspirin EC 81 MG Tablet Delayed Response Take 81 mg by mouth daily. Active atorvastatin (LIPITOR) 80 MG Tablet Take 80 mg by mouth daily. Active albuterol 108 (90 Base) MCG/ACT Aerosol Solution INHALE 2 PUFFS BY MOUTH EVERY 4 HOURS 2 Active LORazepam (ATIVAN) 0.5 MG TabletIndication s:CLL (chronic lymphocytic leukemia) (HCC) Take 1-2 tabs prior to MRI 2 Tablet 3 Active varenicline (CHANTIX) 1 MG Tablet Take 1 Tablet by mouth 2 times daily. 12/08/19 25 Discontinu ed(Therapy completed) Active Problems Problem Noted Date Diagnosed Date Infrarenal abdominal aortic aneurysm (AAA) witho ut rupture 06/02/2023 Dizziness 05/20/2023 Morning headache 05/20/2023 Unintentional weight loss 05/20/2023 CLL (chronic lymphocytic leukemia) 09/08/2022 Lymphocytosis 08/04/2022 Mixed hyperlipidemia 08/04/2022 Current smoker 08/04/2022 Left-sided chest pain Encounters Date Type Department Care Team Description 12/07/2024 1:00 PM CDT [facility] [address] [place] [address] Jhonathan Bañuelos MD CLL (chronic lymphocytic leukemia) (HCC) (Primary Dx); Infrarenal abdominal aortic aneurysm (AAA) without rupture (HCC); Current smoker Discharge Disposition: Discharged to home or Selfcare 12/07/2024 Travel from Last 3 Months Family History Medical History Relation Name Comments Hypertension Brother Stroke Brother Heart Attack Father Relation Name Status Comments Brother Father Mother Social History Tobacco Use Types Packs/Day Years Used Date Smoking Tobacco: Every Day Cigarettes 1.5 50 Smokeless Tobacco: Never Tobacco Cessation:Ready to Q uit: Not Asked; Counseling Given: Not Answered Alcohol Use Standard Drinks/Week Comments Yes 0 (1 standard drink = 0.6 oz pur e alcohol) occasional drinker Sex and Gender Information Value Date Recorded Sex Assigned at Not on file 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 Gender Identity Not on file Sexual Orientation Not on file Last Filed Vital Signs Vital Sign Reading Time Taken Comments Blood Pressure 122/63 12/07/2024 12:50 PM CDT Pulse 92 12/07/2024 12:50 PM CDT Temperature 36.8 C (98.3 F) 12/07/2024 12:50 PM CDT Respiratory Rate 18 12/07/2024 12:5 0 PM CDT Oxygen Saturation 93% 12/07/2024 12: 50 PM CDT Inhaled Oxygen Concentration - - Weight 105.6 kg (232 lb 12.8 oz) 2024 12:50 PM CDT Height 180.3 cm (5' 11 ) 12/07/2024 12: 50 PM CDT Body Mass Index 32.47 12/07/2024 12:50 PM CDT Plan of Treatment Upcoming Encounters Date Type Department Care Team (Late st Contact Info) Description 06/11/2025 1:00 PM CDT Office Visit [facility] [address] [place] [address] Jhonathan Bañuelos MD [address] [place] [address] Discharge Disposition: Discharged to home or Selfcare Health Maintenance Due Date Last Done Comments Hepatitis C Virus (HCV) Screening 1950 TdaP Immunization 1950 Zoster Immunization (1 of 2) 1967 Lung Cancer Screening 1998 Respiratory Syncytial Virus (RSV) Immunization (Adult) (1 - 1-dose 75+ series) 2023 SARS-COV-2 Immunization ( season) 2024 08/05/2021, 12/05/2020, 11/07/2020 Pneumococcal Immunization (50+ years) Completed 07/11/2018, 07/09/2014 Influenza Immunization Completed , 06/07/2023, 07/02/2020, Additional history exists Hepatitis B Immunization Aged Out No longer eligible based on patient's age to complete this topic Meningococcal Immunization (ACWY) Aged Out No longer eligible based on patient's age to complete this topic Rotavirus Immunization Aged Out No lo nger eligible based on patient's age to complete this topic Procedures Procedure Name Priority Date/Time Associated Diagnosis Comments CMP (COMPREHENSIVE METABOLIC PANEL) Routine 11/28/2024 12:00 AM CDT CLL (chronic lymphocytic leukemia) (HCC) COMPLETE BLOOD COUNT (CBC) WITH DIFF Routine 11/28/2024 12:00 AM CDT CLL (chronic lymphocytic leukemia) (HCC) INTERNAL MEDICINE CONSULT 11/27/2024 12:00 AM CDT from Last 3 Months Results * CMP (COMPREHENSIVE METABOLIC PANEL) (11/28/2024 12:00 AM CDT) Blood Jhonathan Bañuelos MD CHEMISTRY ORDERABLES Fin al Result SCAN * COMPLETE BLOOD COUNT (CBC) WITH DIFF (11/28/2024 12:00 AM CDT) Blood Jhonathan Bañuelos MD HEMATOLOGY ORDERABLES Fi nal Result SCAN * INTERNAL MEDICINE CONSULT (11/27/2024 12:00 AM CDT) 11/27/2024 us Provider Scan GENERIC SCAN ORDERS CONSULT Carmelita brandon Result SCAN from Last 3 Months Insurance [facility] Care Teams Brass Polisher Relationship Specialty Start Date End Date Nba Negrete MD [address] [place] [address] PCP - General Internal Medicine 09/08/23
--- OUTSIDE RECORDS SUMMARY | 2024-12-25 09:39 | XMS_ITS | Encounter Summary ---
Author Organization [employer] Address [address] [place] [address] Care Team Providers Care Underwater Roboticist Name Role Phone Nba Negrete MD Primary Care Provider Encounter Details Date Type Department Care Team (Late st Contact Info) Description 02/18/2007 Outpatient Historical [facility] [address] 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
[2024-12-25 09:40] VITALS: BP 158/73; PULSE 110; RESP 17; TEMP 36.8; O2SAT 95
--- OUTSIDE RECORDS SUMMARY | 2024-12-25 09:40 | XMS_ITS | Data Portability ---
Author Organization [place] [facility] [employer], Main Office Address [address] [place] [address] Care Team Providers Care Oracle Distribution Consultant Name Role Phone WAI NEGRETE Primary Care Provider WAI NEGRETE Referring Provider JOSIE BANEGAS Senior Education Specialist WAI NEGRETE Primary Care Provider YFN ASTUDILLO Hematology/Oncology [phone] PAOLA KILGORE Certified Pharmacy Technician Assessment Encounter Date Assessment Date Assessment LastModified by Organization Details LastModified Time 03/20/2024 03/20/2024 10/08/2023: PSA 3.54 Gluc 120, TP 6.2L, Glob 2.4L 12/31/2023: Gluc 142, Glob 2.3 WBC 37.1 02/08/2024: WBC 34.1 Gluc 107, bili T 1.90 45 minutes spent with the patient and his [email or web address] Not available 03/20/2024 12:00:56 05/31/2024 05/31/2024 10/08/2023: PSA 3.54 Gluc 120, TP 6.2L, Glob 2.4L 12/31/2023: Gluc 142, Glob 2.3 WBC 37.1 02/08/2024: WBC 34.1 Gluc 107, bili T 1.90 05/22/2024: WBC 41.6 Gluc 182, T bili 1.60H, TP 5.8L 45 minutes spent with the patient, reviewed his labs, updated the chart, provided referrals [email or web address] Not available 05/31/2024 10:53:59 08/28/2024 08/28/2024 10/08/2023: PSA 3.54 Gluc 120, TP 6.2L, Glob 2.4L 12/31/2023: Gluc 142, Glob 2.3 WBC 37.1 02/08/2024: WBC 34.1 Gluc 107, bili T 1.90 05/22/2024: WBC 41.6 Gluc 182, T bili 1.60H, TP 5.8L 45 minutes spent with the patient, reviewed his labs, updated the chart, provided referrals [email or web address] Not available 08/28/2024 11:36:45 11/27/2024 11/27/2024 10/08/2023: PSA 3.54 Gluc 120, TP 6.2L, Glob 2.4L 12/31/2023: Gluc 142, Glob 2.3 WBC 37.1 02/08/2024: WBC 34.1 Gluc 107, bili T 1.90 05/22/2024: WBC 41.6 Gluc 182, T bili 1.60H, TP 5.8L 09/08/2024: T bli 1.9 45 minutes spent with the patient, reviewed his labs, updated the chart, provided referrals for ortho vinicio Not available 11/27/2024 11:40:06 12/11/2024 12/11/2024 74-year-old patient presents today for bilateral knee pain that has been going on for many years but has recently gotten worse. He rates his pain today 8/10. He states he is aware that he has arthritis in both of his knees. In the past he has tried physical therapy, Advil, Tylenol, cortisone injections, and gel injections. He states that the only thing that has helped in the past were the gel injections which he last got 3 years ago. review of systems per patient questionnaire Imaging: X-rays reviewed show no acute bony abnormality or fracture. 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 Physical exam: Antalgic gait. Tenderness with palpation around bilateral knees. Range of motion 0 120. Pain with deep flexion. Stable ligaments. Sensation intact throughout. He is not interested in surgery at this time. He is interested in trying gel injections again as they worked well for him 3 years ago and lasted a long time. We will order the injections which will be sent to his home through a specialty pharmacy. Once they arrive he can bring them in to us to be administered. He is in agreement with this plan. Not available 12/12/2024 16:11:11 Plan of Treatment Reminders Order Date Submit Date Provider Last Modified By Organization Details Last Modified Time Details Appointments New Patient 2024 01:30P Enrike Gruber MD Not available Not available Not available Follow Up 2024 09:15A Enrike wilburn MD Not available Not available Not available Lab lipid panel, serum [address] (Lab), [address] [place], [address], 11/27/2024 12:31:12 CBC w/ auto diff 2024 025 [facility] (Lab), [address] [place], [address], 11/28/2024 13:29:52 CMP, serum or plasma 2024 025 [facility] (Lab), [address] [place], [address], 11/28/2024 13:29:52 TSH, serum or plasma [address] (Lab), [address] [place], [address], 11/27/2024 12:31:13 lipid panel, serum 2024 025 [facility] (Lab), [address] [place], [address], 09/08/2024 18:10:20 CBC w/ auto diff 2024 025 [facility] (Lab), [address] [place], [address], 09/08/2024 18:10:20 CMP, serum or plasma 2024 025 [facility] (Lab), [address] [place], [address], 09/08/2024 18:10:20 TSH, serum or plasma [address] (Lab), [address] [place], [address], 08/28/2024 12:01:41 lipid panel, serum [address] (Lab), [address] [place], [address], 11/30/2024 08:39:40 CBC w/ auto diff [address] (Lab), [address] [place], [address], 11/30/2024 08:39:41 CMP, serum or plasma [address] (Lab), [address] [place], [address], 11/30/2024 08:39:41 TSH, serum or plasma [address] (Lab), [address] [place], [address], 11/30/2024 08:39:41 lipid panel, serum 2023 024 [facility] (Lab), [address] [place], [address], 05/22/2024 11:10:15 CBC w/ auto diff 2023 024 [facility] (Lab), [address] [place], [address], 05/22/2024 11:55:12 CMP, serum or plasma 2023 024 [facility] (Lab), [address] [place], [address], 05/22/2024 11:10:32 TSH, serum or plasma 2023 024 [facility] (Lab), [address] [place], [address], 05/22/2024 11:39:43 Referral vascular surgeon referral - Please call patient to schedule an appointm ent. Thank you. 2024 025 ELSIE Banegas MD, [address] [facility] [address], [address], 12/04/2024 10:00:31 hematolo gist/onc ologist referral - Please call patient to schedule an appointm ent. Thank you. 2024 025 ELSIE Astudillo MD, [address], [address], [place], [address], 12/04/2024 10:35:19 pulmonol ogist referral - Please call patient to schedule an appointm ent. Thank you. 2024 025 [email or web address] Paola Kilgore MD, [address] [place], [address], 12/04/2024 09:15:31 hepatolo gist referral - Add on referral order for 09/13/19 25 appt. 2024 025 [email or web address] Tracy Gruber MD, [address] [facility] [address], [address], 12/04/2024 09:11:45 orthoped ic surgeon referral - Please call patient to schedule an appointm ent. Thank you. 2024 025 LIZ Ferguson MD, [address] [facility], [place], [address], 12/12/2024 16:18:52 vascular surgeon referral - Please call patient to schedule . 2024 025 ELSIE Banegas MD, [address] [facility], [facility] [address], [place], [address], 10/05/2024 08:45:33 hematolo gist/onc ologist referral 2024 025 [email or web address] Yfn Astudillo MD, [address] [facility], [facility] [address], [place], [address], 08/29/2024 11:22:15 urologis t referral - Please call patient to schedule . 2024 025 [email or web address] Justin Blue, [address] [facility], [facility] [address], [place], [address], 10/05/2024 08:17:47 pulmonol ogist referral 2024 025 [email or web address] Paola Kilgore MD, [address] [place], [address], 08/29/2024 11:22:14 hepatolo gist referral - Add on referral order for 09/13/19 25 appt. 2024 025 aly Gruber MD, [address] [facility], [address], [place], [address], 10/30/2024 17:06:55 vascular surgeon referral 2023 024 [email or web address] Josie Banegas MD, [address] [facility], [facility] [address], [place], [address], 05/31/2024 10:43:57 hematolo gist/onc ologist referral 2023 024 [email or web address] Yfn Astudillo MD, [address], [address], [place], [address], 05/31/2024 10:43:58 urologis t referral 2023 024 [email or web address] Monty Khalil MD, [address] [facility] [address], [place], [address], 05/31/2024 10:43:59 pulmonol ogist referral 2023 024 [email or web address] Paola Kilgore MD, [address] [facility] [place], [address], 05/31/2024 10:42:55 hepatolo gist referral 2023 024 [email or web address] Yvan Baltazar MD, [address] [place], [address], 05/31/2024 10:44:00 vascular surgeon referral 2023 024 [email or web address] Josie Banegas MD, [address] [facility], [address], [place], [address], 08/14/2024 16:12:16 urologis t referral 2023 024 [email or web address] 2 Monty Khalil MD, [address] [facility] [address], [place], [address], 10/17/2024 08:32:54 pulmonol ogist referral 2023 024 [email or web address] Paola Kilgore MD, [address] [facility] [place], [address], 04/20/2024 09:23:21 hepatolo gist referral 2023 024 [email or web address] 2 Yvan Baltazar MD, [address] [place], [address], 10/17/2024 08:32:55 hematolo gist/onc ologist referral 2023 024 [email or web address] 2 Ariel Eric MD, [address], [place], [address], 10/17/2024 08:32:53 Procedures colonosc opy screenin g (PROC) - Please call patient to schedule an appointm ent. Thank you. 2024 025 [email or web address] Sainz MD, [address], [address], [place], [address], 12/04/2024 09:09:04 colonosc opy screenin g (PROC) - Please call patient to schedule . 2024 025 [email or web address] Deon Arreguin MD, [address] [facility] [address], [place], [address], 08/29/2024 11:20:59 colonosc opy screenin g (PROC) 2023 024 Tracy Gruber MD, [address], [address], [place], [address], 2024 13:00:40 colonosc opy screenin g (PROC) 2023 024 [email or web address] Yuridia Aquino MD, [address], [address], [place], [address], 10/19/2024 11:01:12 Surgeries None recorded . Imaging XR, knee, 3 view 2024 025 [email or web address] [facility], [address], [place], [address], 12/12/2024 23:07:25 XR, hip + pelvis, unilater al, 2 or 3 view - Stat hold and call 2024 025 [facility], [address], [address], [place], [address], 08/29/2024 12:35:18 XR, lumbosac ral spine, 2 or 3 view - Stat hold and call Dr Judy schroeder 2024 025 [facility], [address], [address], [place], [address], 08/29/2024 12:38:24 Medication Orders albutero l sulfate HFA 90 mcg/actu ation aerosol inhaler 2024 025 [id number], [address], [place], [place], [id number], 08/28/2024 12:00:17 Patient TargetsNo targets recorded. Patient Instructions Encounter Date Encounter Id Patient Instructions Last Modified By Organization Details Last Modified Time 12/11/2024 [id number] viscosupplementa tion treatment* - Teja knees Not available 12/11/2024 21:21:15 Reason for Referral Certified Pharmacy Technician Referral for O bstructive sleep apnea syndrome Referring Physician: Wai Negrete, Internal Medicine, Encounter Date: 03/20/2024 Vascular Surgeon Referral fo r Peripheral vascular disease Referring Physician: Wai Negrete Internal Medicine, Encounter Date: 03/20/2024 Referring Physician: Wai Negrete Internal Medicine, Encounter Date: 03/20/2024 Urologist Referral for Prost ate specific antigen above reference range Referring Physician: Wai Negrete Internal Medicine, Encounter Date: 03/20/2024 Site Inspector Referral for He patomegaly Referring Physician: Wai Negrete Internal Medicine, Encounter Date: 03/20/2024 Certified Pharmacy Technician Referral for O bstructive sleep apnea syndrome Referring Physician: Wai Negrete Internal Medicine, Encounter Date: 05/31/2024 Vascular Surgeon Referral fo r Peripheral vascular disease Referring Physician: Wai Negrete Internal Medicine, Encounter Date: 05/31/2024 Referring Physician: Wai Negrete Internal Medicine, Encounter Date: 05/31/2024 Urologist Referral for Prost ate specific antigen above reference range Referring Physician: Wai Negrete Internal Medicine, Encounter Date: 05/31/2024 Site Inspector Referral for He patomegaly Referring Physician: Wai Negrete Internal Medicine, Encounter Date: 05/31/2024 Certified Pharmacy Technician Referral for O bstructive sleep apnea syndrome Referring Physician: Wai Negrete Internal Medicine, Encounter Date: 08/28/2024 Vascular Surgeon Referral fo r Peripheral vascular disease Please call patient to schedule. Referring Physician: Vish Moody Medicine, Encounter Date: 08/28/2024 Referring Physician: Wai Negrete Internal Medicine, Encounter Date: 08/28/2024 Urologist Referral for Prost ate specific antigen above reference range Please call patient to schedule. Referring Physician: Vish Moody, Encounter Date: 08/28/2024 Site Inspector Referral for He patomegaly Add on referral order for 09/13/2024 appt. Referring Physician: Vish Moody, Encounter Date: 08/28/2024 Certified Pharmacy Technician Referral for O bstructive sleep apnea syndrome Please call patient to schedule an appointment. Thank you. Referring Physician: Vish Moody Medicine, Encounter Date: 11/27/2024 Vascular Surgeon Referral fo r Peripheral vascular disease Please call patient to schedule an appointment. Thank you. Referring Physician: Vish Moody Medicine, Encounter Date: 11/27/2024 Please call patient to sched ule an appointment. Thank you. Referring Physician: Vish Moody Medicine, Encounter Date: 11/27/2024 Site Inspector Referral for He patomegaly Add on referral order for 09/13/2024 appt. Referring Physician: Wai Negrete, Internal Medicine, Encounter Date: 11/27/2024 Orthopedic Surgeon Referral for Pain of bilateral knee joints Please call patient to schedule an appointment. Thank you. Referring Physician: Wai Negrete, Internal Medicine, Encounter Date: 11/27/2024 Results Created Date Observation Date Name Description Value Unit Range Abnormal Flag Note LastModifiedBy Organization Detail LastModifiedTime 05/22/20 24 05/22/2024 LIPID PANEL cholesterol 129 mg/dL 140-19 9 low NIH ISAMAR NSUS RECOM MENDA TION FOR ROGERIO STERO L: ADULT CHILD LOW RISK: <200 <170 BORDE RLINE : <200- 239 ----- HIGH RISK: >240 >200 Not Available [facility] (Lab) [address] [place], [address], 05/22/2024 11:10:15 05/22/20 24 05/22/2024 LIPID PANEL triglyceride s 137 mg/dL 0-150 NIH ISAMAR NSUS REPOR T RECOM MENDA TION FOR TRIGL YCERI COLLEEN: ADULT CHILD LOW RISK: <150 ----- BODER LINE: 150-1 99 ----- HIGH RISK: >200 ----- Not Available [facility] (Lab) [address] [place], [address], 05/22/2024 11:10:15 05/22/20 24 05/22/2024 LIPID PANEL HDL cholesterol 35 mg/dL 40- low Not Available [facility] (Lab) [address] [place], [address], 05/22/2024 11:10:15 05/22/20 24 05/22/2024 LIPID PANEL LDL cholesterol, calculated 67 mg/dL 0-130 NIH ISAMAR NSUS REPOR T RECOM MENDA TIONS FOR LDL: ADULT CHILD LOW RISK <130 <110 (OPTI MAL LDL) <100 ----- ANA MARIA RLINE : 130-1 59 ----- HIGH RISK: >160 >130 A TRIGL YCERI DE RESUL T >400 INVAL IDATE S THE CALCU LATIO N FOR LDL FRACT IONAT ION - THE LDL RESUL T WILL NOT BE REPOR SUZAN. Not Available [facility] (Lab) [address] [place], [address], 05/22/2024 11:10:15 05/22/20 24 05/22/2024 COMPR EHENS JOSÉ MIGUEL METAB OLIC PANEL sodium 136 mmol/ L 137-14 5 low Not Available [facility] (Lab) [address] [place], [address], 05/22/2024 11:10:32 05/22/20 24 05/22/2024 COMPR EHENS JOSÉ MIGUEL METAB OLIC PANEL potassium 3.7 mmol/ L 3.5-5. 1 Not Available [facility] (Lab) [address] [place], [address], 05/22/2024 11:10:32 05/22/20 24 05/22/2024 COMPR EHENS JOSÉ MIGUEL METAB OLIC PANEL chloride 101 mmol/ L 98-107 Not Available [facility] (Lab) [address] [place], [address], 05/22/2024 11:10:32 05/22/20 24 05/22/2024 COMPR EHENS JOSÉ MIGUEL METAB OLIC PANEL carbon dioxide 30 mmol/ L 22-30 Not Available [facility] (Lab) [address] [place], [address], 05/22/2024 11:10:32 05/22/20 24 05/22/2024 COMPR EHENS JOSÉ MIGUEL METAB OLIC PANEL anion gap 8.7 mmol/ L 14-22 low Not Available [facility] (Lab) [address] [place], [address], 05/22/2024 11:10:32 05/22/20 24 05/22/2024 COMPR EHENS JOSÉ MIGUEL METAB OLIC PANEL glucose 182 mg/dL 70-99 high Not Available [facility] (Lab) [address] [place], [address], 05/22/2024 11:10:32 05/22/20 24 05/22/2024 COMPR EHENS JOSÉ MIGUEL METAB OLIC PANEL BUN 16 mg/dL 8-19 Not Available [facility] (Lab) [address] [place], [address], 05/22/2024 11:10:32 05/22/20 24 05/22/2024 COMPR EHENS JOSÉ MIGUEL METAB OLIC PANEL creatinine 0.81 mg/dL 0.66-1 .25 Not Available [facility] (Lab) [address] [place], [address], 05/22/2024 11:10:32 05/22/20 24 05/22/2024 COMPR EHENS JOSÉ MIGUEL METAB OLIC PANEL GFR >60 Refer ence Range : Cary ge GFR Healt hy Adult : >60 [...] or ethni c subgr oups, such as [facility] nics. Outsi de the valid ated matheus [...] calcu lator is avail able on the [facility] websi te: https :[email or web address] w.lester mayo.o sofia/pr genevaess naboral s/kdo qi/gf r_cal culat or Not Available [facility] (Lab) [address] [place], [address], 05/22/2024 11:10:32 05/22/2005/22/2024 COMPR EHENS JOSÉ MIGUEL METAB OLIC PANEL alkaline phosphatase 103 U/L 38-126 Not Available [facility] (Lab) [address] [place], [address], 05/22/2024 11:10:32 05/22/2005/22/2024 COMPR EHENS JOSÉ MIGUEL METAB OLIC PANEL alanine aminotransfe rase 25 U/L 0-50 Not Available [facility] (Lab) [address] [place], [address], 05/22/2024 11:10:32 05/22/2005/22/2024 COMPR EHENS JOSÉ MIGUEL METAB OLIC PANEL aspartate aminotransfe rase 29 U/L 15-46 Not Available [facility] (Lab) [address] [place], [address], 05/22/2024 11:10:32 05/22/20 24 05/22/2024 COMPR EHENS JOSÉ MIGUEL METAB OLIC PANEL bilirubin, total 1.60 mg/dL 0.20-1 .30 high Not Available [facility] (Lab) [address] [place], [address], 05/22/2024 11:10:32 05/22/20 24 05/22/2024 COMPR EHENS JOSÉ MIGUEL METAB OLIC PANEL calcium 9.5 mg/dL 8.4-10 .2 Not Available [facility] (Lab) [address] [place], [address], 05/22/2024 11:10:32 05/22/2005/22/2024 COMPR EHENS JOSÉ MIGUEL METAB OLIC PANEL total protein 5.8 g/dL 6.3-8. 2 low Not Available [facility] (Lab) [address] [place], [address], 05/22/2024 11:10:32 05/22/20 24 05/22/2024 COMPR EHENS JOSÉ MIGUEL METAB OLIC PANEL albumin 3.7 g/dL 3.0-4. 4 Not Available [facility] (Lab) [address] [place], [address], 05/22/2024 11:10:32 05/22/2005/22/2024 COMPR EHENS JOSÉ MIGUEL METAB OLIC PANEL globulin 2.1 g/dL 2.6-4. 2 low Not Available [facility] (Lab) [address] [place], [address], 05/22/2024 11:10:32 05/22/20 24 05/22/2024 COMPR EHENS JOSÉ MIGUEL METAB OLIC PANEL A/G ratio 1.8 ratio 1.0-2. 0 Not Available [facility] (Lab) [address] [place], [address], 05/22/2024 11:10:32 05/22/2005/22/2024 TSH W/REF FELICE FT4 TSH with reflex free T4 1.150 uIU/m L 0.465- 4.680 Not Available [facility] (Lab) [address] [place], [address], 05/22/2024 11:39:43 05/22/2005/22/2024 CBC/C OMPLE TE BLD COUNT W/DIF F white blood cells 41.6 x10'3 /uL 4.2-10 .8 critical high Not Available [facility] (Lab) [address] [place], [address], 05/22/2024 11:56:19 05/22/2005/22/2024 CBC/C OMPLE TE BLD COUNT W/DIF F red blood cells 4.77 x10'6 /uL 4.10-5 .80 Not Available [facility] (Lab) [address] [place], [address], 05/22/2024 11:56:19 05/22/2005/22/2024 CBC/C OMPLE TE BLD COUNT W/DIF F hemoglobin 15.0 g/dL 13.2-1 7.0 Not Available [facility] (Lab) [address] [place], [address], 05/22/2024 11:56:19 05/22/2005/22/2024 CBC/C OMPLE TE BLD COUNT W/DIF F hematocrit 46.2 % 39.3-5 0.0 Not Available [facility] (Lab) [address] [place], [address], 05/22/2024 11:56:19 05/22/2005/22/2024 CBC/C OMPLE TE BLD COUNT W/DIF F mean red cell volume 96.9 fL 80.0-9 7.0 Not Available [facility] (Lab) [address] [place], [address], 05/22/2024 11:56:19 05/22/2005/22/2024 CBC/C OMPLE TE BLD COUNT W/DIF F mean red cell hemoglobin 31.4 pg 27.0-3 3.0 Not Available [facility] (Lab) [address] [place], [address], 05/22/2024 11:56:19 05/22/2005/22/2024 CBC/C OMPLE TE BLD COUNT W/DIF F mean RBC HGB concentratio n 32.5 g/dL 31.0-3 6.0 Not Available [facility] (Lab) [address] [place], [address], 05/22/2024 11:56:19 05/22/2005/22/2024 CBC/C OMPLE TE BLD COUNT W/DIF F red cell distribution width 13.0 % 11.8-1 5.5 Not Available [facility] (Lab) [address] [place], [address], 05/22/2024 11:56:19 05/22/2005/22/2024 CBC/C OMPLE TE BLD COUNT W/DIF F platelets 169 x10'3 /uL 150-40 0 Not Available [facility] (Lab) [address] [place], [address], 05/22/2024 11:56:19 05/22/2005/22/2024 CBC/C OMPLE TE BLD COUNT W/DIF F mean platelet volume 10.4 fL 9.0-12 .4 Not Available [facility] (Lab) [address] [place], [address], 05/22/2024 11:56:19 05/22/2005/22/2024 CBC/C OMPLE TE BLD COUNT W/DIF F neutrophils 14.6 % 39.0-7 2.0 low Not Available [facility] (Lab) [address] [place], [address], 05/22/2024 11:56:19 05/22/2005/22/2024 CBC/C OMPLE TE BLD COUNT W/DIF F lymphocytes 82.6 % 16.0-4 7.0 high Not Available [facility] (Lab) [address] [place], [address], 05/22/2024 11:56:19 05/22/2005/22/2024 CBC/C OMPLE TE BLD COUNT W/DIF F monocytes 1.9 % 5.0-12 .0 low Not Available [facility] (Lab) [address] [place], [address], 05/22/2024 11:56:19 05/22/2005/22/2024 CBC/C OMPLE TE BLD COUNT W/DIF F eosinophils 0.6 % 1.0-7. 0 low Not Available [facility] (Lab) [address] [place], [address], 05/22/2024 11:56:19 05/22/2005/22/2024 CBC/C OMPLE TE BLD COUNT W/DIF F basophils 0.1 % 0.0-2. 0 Not Available [facility] (Lab) [address] [place], [address], 05/22/2024 11:56:19 05/22/2005/22/2024 CBC/C OMPLE TE BLD COUNT W/DIF F immature granulocytes 0.2 % 0.00-0 .50 Not Available [facility] (Lab) [address] [place], [address], 05/22/2024 11:56:19 05/22/2005/22/2024 CBC/C OMPLE TE BLD COUNT W/DIF F neutrophils, absolute count 6.03 x10'3 /uL 1.5-8. 0 Not Available [facility] (Lab) [address] [place], [address], 05/22/2024 11:56:19 05/22/2005/22/2024 CBC/C OMPLE TE BLD COUNT W/DIF F lymphocytes, absolute count 34.35 x10'3 /uL 1.07-3 .43 high Not Available [facility] (Lab) [address] [place], [address], 05/22/2024 11:56:19 05/22/2005/22/2024 CBC/C OMPLE TE BLD COUNT W/DIF F monocytes, absolute count 0.80 x10'3 /uL 0.29-0 .99 Not Available [facility] (Lab) [address] [place], [address], 05/22/2024 11:56:19 05/22/2005/22/2024 CBC/C OMPLE TE BLD COUNT W/DIF F eosinophils, absolute count 0.26 x10'3 /uL 0.02-0 .53 Not Available [facility] (Lab) [address] [place], [address], 05/22/2024 11:56:19 05/22/2005/22/2024 CBC/C OMPLE TE BLD COUNT W/DIF F basophils, absolute count 0.05 x10'3 /uL 0.01-0 .08 Not Available [facility] (Lab) [address] [place], [address], 05/22/2024 11:56:19 05/22/2005/22/2024 CBC/C OMPLE TE BLD COUNT W/DIF F immature granulocytes ,absolute 0.09 x10'3 /uL 0.00-0 .05 high Not Available [facility] (Lab) [address] [place], [address], 05/22/2024 11:56:19 05/22/20 24 05/22/2024 CBC/C OMPLE TE BLD COUNT W/DIF F nucleated red blood cells 0.0 % -0 Not Available [facility] (Lab) [address] [place], [address], 05/22/2024 11:56:19 05/22/20 24 05/22/2024 CBC/C OMPLE TE BLD COUNT W/DIF F NRBC# 0.00 x10'3 /uL Not Available [facility] (Lab) [address] [place], [address], 05/22/2024 11:56:19 05/22/20 24 05/22/2024 CBC/C OMPLE TE BLD COUNT W/DIF F smudge cells 4+ Not Available [facility] (Lab) [address], [place], [address], 05/22/2024 11:56:19 05/22/20 24 05/22/2024 CBC/C OMPLE TE BLD COUNT W/DIF F normal RBC morphology PRESEN T Not Available [facility] (Lab) [address] [facility] [place], [address], 05/22/2024 11:56:19 03/07/20 24 03/07/2024 US, abdom en, limit ed [facility] [address], [place] [address] Patien t Name: SHRUTHI KAY Access ion #: [id number] Sex: M : 1950 0 Dictat [...] at 2023 07:53: 56 AM Page [address] (Imaging) [address] [place], [address], 10/23/2024 12:27:40 03/07/20 24 03/07/2024 US, liver No observ ation record ed. [address] [place], [address], 10/23/2024 12:27:41 08/29/19 25 08/29/2024 XR, hip + pelvi s, unila teral , 2 or 3 view No observ ation record ed. [address] [address], [place], [address], 10/23/2024 12:27:41 08/29/19 25 08/29/2024 XR, lumbo sacra l spine , 2 or 3 view No observ ation record ed. [address] [address], [place], [address], 10/23/2024 12:27:42 08/29/19 25 08/29/2024 XR, lumbo sacra l spine , 2 or 3 view No observ ation record ed. [address] [address], [place], [address], 10/23/2024 12:27:43 08/29/19 25 08/29/2024 XR, hip + pelvi s, unila teral , 2 or 3 view No observ ation record ed. [address] [address], [place], [address], 10/23/2024 12:27:43 12/12/19 XR, knee, 3 view No observ ation record ed. [email or web address] [facility] [address], [place], [address], 12/12/2024 16:06:38 Result Notes None recorded. Problems Name Problem SNOMED Code Status Onset Date Resolution Date Notes Provider Name and Address Organization Details Recorded Time Coronary arterioscl erosis 71675518 Active 2022 ROMAN De Luna, [facility] ([employer] [facility] 3 10:58:25 Essential hypertensi on 03494095 Active 2023 Wai wilburn MD [address], [address], [address] , [facility] [employer] [facility] 4 15:49:01 Hyperlipid emia 66316211 Active 2023 Wai wilburn MD [address], [address], [address] , [facility] [employer] 4 15:49:06 Smoker 63575363 Active 2023 Wai wilburn MD [address], [address], [address] , [employer] [facility] [employer] 4 15:51:30 Sleep apnea 17513292 Active 2023 Paola Kilgore MD [address], [address], [address] , [facility] [employer] [facility] 4 08:53:30 Prostate specific antigen above reference range 498539202 Active 2023 Wai wilburn MD [address], [address], [address] , [facility] [employer] [facility] 4 10:32:16 Mediastina l lymphadeno odalys 74554379 Active 2023 Wai wilburn MD [address], [address], [address] , [facility] 4 10:38:54 Total bilirubin above reference range 6514095218816 08 Active 2023 CATHERINE Berman, [facility] 4 17:19:38 Abdominal aortic aneurysm 374565280 Active 2023 ROMAN Claudio null, [facility] 4 16:08:02 Hyperbilir ubinemia 92878709 Active 2023 Wai wilburn MD [address], [address], [place], [address] , [facility] 4 16:54:33 Hepatomega ly 62370978 Active 2023 Wai wilburn MD [address], [address], [place], [address] , [facility] 4 16:55:03 Pain of left hip joint 6808679806121 00 Active 2024 Wai wilburn MD [address], [address], [place], [address] , [facility] 5 11:56:29 Pain of bilateral knee joints 7607683064107 04 Active 2024 Wai wilburn MD [address], [address], [place], [address] , [facility] 5 10:56:07 Bilateral osteoarthr itis of knees 8395864420732 07 Active 2024 ROMAN Samson null, [facility] 5 08:41:02 Cataract 327471987 Active Not Available [facility] 3 07:47:52 Right carotid artery stenosis 7576690067098 00 Active 2022 Not Available [facility] 3 07:47:52 Osteoarthr itis 360522018 Active Not Available [facility] 3 07:47:52 Peripheral vascular disease 444766313 Active Not Available [facility] 3 07:47:52 Ventral incisional hernia 670560172 Active Not Available [facility] 3 07:47:52 Obstructiv e sleep apnea syndrome 57039749 Active Not Available [facility] 3 07:47:52 COVID-19 169510853 Active 2021 Not Available [facility] 3 07:47:52 Chronic lymphoid leukemia, disease 26371364 Active 2021 Not Available [facility] 3 07:47:52 Notes:Medical History: Right CVA 1998 [...] extraction with IOL 2014 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 Unintended recipients are directed to securely destroy any materials received. You are hereby notified that the unauthorized disclosure or other unlawful use of this fax or any personal health information is prohibited. To the extent patient information contained in this fax is subject to 42 CFR Part 2, this regulation prohibits unauthorized disclosure of these records. If you received this fax in error, please visit [email or web address] to notify the sender and confirm that the information will be destroyed. If you do not have internet access, please call to notify the sender and confirm that the information will be destroyed. Thank you for your attention and cooperation. [ID:[id number]] , Date: 12/12/2024RE: Alexa Steward MD, I would like to thank you for referring Geo Kay to me for consultation and evaluation of Bilateral knee pain , on 12/11/2024. I have enclosed a copy of the office assessment and plan for your records. Once again, thank you for allowing me to participate in the care of this patient. Sincerely, Electronically Signed by: SABINA HARRISON NP Assessment/[id number] d patient presents today for bilateral knee pain that has been going on for many years but has recently gotten worse. He rates his pain today 8/10. He states he is aware that he has arthritis in both of his knees. In the past he has tried physical therapy, Advil, Tylenol, cortisone injections, and gel injections. He states that the only thing that has helped in the past were the gel injections which he last got 3 years ago. review of systems per patient questionnaire Imaging: X-rays reviewed show no acute bony abnormality or fracture. Bilateral knees have severe degenerative osteoarthritic changes with ilir-ld-znjl medially and patellofemoral osteophyte formation. 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 Physical exam: Antalgic gait. Tenderness with palpation around bilateral knees. Range of motion 0 120. Pain with deep flexion. Stable ligaments. Sensation intact throughout. He is not interested in surgery at this time. He is interested in trying gel injections again as they worked well for him 3 years ago and lasted a long time. We will order the injections which will be sent to his home through a specialty pharmacy. Once they arrive he can bring them in to us to be administered. He is in agreement with this plan. 1. Pain of bilateral knee [id number]: Pain in unspecified knee XR, KNEE, 3 VIEW Side: BILATERAL VISCOSUPPLEMENTATION TREATMENT* - Note to Provider: Teja knees XR, KNEE, 3 VIEW Side: BILATERAL Return to Office Tracy Gruber MD for New Patient 15 at [facility] General Surgery on 01/10/2025 at 01:30 PM Wai Negrete MD for Follow Up 15 at [facility] Primary Care [place] on 04/04/2025 at 09:15 AM Not Available [facility] 12/12/2024 16:18:52 Procedures Surgical History Date Name Laterality Status Provider Name and Address Organization Details Recorded Time 02/07/20 24 Medicare Wellness CPT Code, subsequent completed Thiago Soto LPN [place] [facility] [employer] [facility] 02/07/2024 13:30:14 02/07/20 24 Advanced Care Planning completed Thiago Soto LPN [facility] ([employer] [facility] 02/07/2024 13:35:32 09/18/19 15 Rpr ventral marcy init reduc completed Not Available [facility] 10/14/2022 04:42:56 08/25/19 13 Colonoscopy completed Not Available [facility] 10/14/2022 04:42:56 Colon Surgery completed Not Available [facility] 10/14/2022 04:42:56 Carotid Endarterectomy completed Not Available [facility] 10/14/2022 04:42:56 Hernia Repair completed Not Available [facility] 10/14/2022 04:42:56 femoral artery bypass completed Not Available [facility] 10/14/2022 04:42:56 Imaging Results Imaging Date Name Status LastModified by Organiz ation Details LastModified Time 03/07/2024 US, abdomen, limited completed [address] (Imaging) [address] [place], [address], 10/23/2024 12:27:40 03/07/2024 US, liver completed [address] [place], [address], 10/23/2024 12:27:41 08/29/2024 XR, hip + pelvis, unilateral, 2 or 3 view completed [address], [address], 10/23/2024 12:27:41 08/29/2024 XR, lumbosacral spine, 2 or 3 view completed [address], [address], 10/23/2024 12:27:42 08/29/2024 XR, lumbosacral spine, 2 or 3 view completed [address], [address], 10/23/2024 12:27:43 08/29/2024 XR, hip + pelvis, unilateral, 2 or 3 view completed [address], [place], [address], 10/23/2024 12:27:43 12/11/2024 XR, knee, 3 view completed [email or web address] [facility] [place] [address], [place], [address], 12/12/2024 16:06:38 Procedure Notes None recorded. Medical Equipment None [...] completed Not Available Not Available Not Available Synvisc-One 48 mg/6 mL intra-artic ular syringe Take 12 mL by intraarti cular route. 2024 active Not Available Not Available Not Avai lable Suprep Bowel Prep Kit 17.5 gram-3.13 gram-1.6 [...] Not Available Not Available Fluzone High-Dose Quad 2020- (PF) 240 mcg/0.7 mL IM syringe ADM [...] Updated DateTime 4 180.34 cm 31.8 kg/m2 259083. 06 g 98.2 [degF] 84 /min 20 /min 92 % 92 % 7 102 mm[Hg] 60 mm[Hg] Thiago Soto LPN [place] [employer] [facility] [employer] 4 11:48:24 Date Recorded Body height Body mass index (BMI) Body weight Body temperature Heart rate Systolic blood pressure Diastolic blood pressure Provider Name and Address Organization Details Last Updated DateTime 4 180.34 cm 33.5 kg/m2 011080. 17 g 97.3 [degF] 84 /min 144 mm[Hg] 70 mm[Hg] [facility] [employer] [facility] [employer] 4 09:51:07 Date Recorded Body height Body mass index (BMI) Body weight Body temperature Heart rate Systolic blood pressure Diastolic blood pressure Provider Name and Address Organization Details Last Updated DateTime 5 180.34 cm 33.8 kg/m2 668523. 35 g 97.6 [degF] 84 /min 122 mm[Hg] 60 mm[Hg] Lois Hawthorne [facility] [employer] [facility] [employer] 5 11:23:47 Date Recorded Body height Body mass index (BMI) Body weight Body temperature Heart rate Oxygen saturation Oxygen saturation in Arterial blood by Pulse oximetry Pain severity - 0-10 verbal numeric rating [Score] - Reported Systolic blood pressure Diastolic blood pressure Provider Name and Address Organization Details Last Updated DateTime 5 180.34 cm 32.1 kg/m2 252476. 25 g 98.5 [degF] 90 /min 90 % 90 % 8 130 mm[Hg] 60 mm[Hg] Jessica Glasgow MA [employer] [facility] [employer] 5 09:58:10 Date Recorded Body height Body mass index (BMI) Body weight Pain severity - 0-10 verbal numeric rating [Score] - Reported Provider Name and Address Organization Details Last Updated DateTime 12/11/2024 180.34 cm 32.1 kg/m2 812201.25 g 8 Zenaida Casillas [facility] [employer] [facility] [employer] 12/11/2024 10:13:48 Social History Question Answer Notes LastModified by Organization Details LastModified Time Tobacco Smoking Status Former Smoker DARLENE [place], [place] [facility] ([employer] [facility] 02/07/2024 13:31:47 Do You Have An Advance Directive? No Info Provided MIGRATION.030 [id number] Information not available 10/14/2022 Do You Wear A Helmet When Biking? No Does Not Bike [email or web address] Information not available 02/07/2024 Are You Blind Or Do You Have Difficulty Seeing? No MIGRATION.030 544926 Information not available 10/14/2022 Is Blood Transfusion Acceptable In An Emergency? Yes [email or web address] Information not available 02/07/2024 What Is Your Level Of Caffeine Consumption? Occasional MIGRATION.030 060644 Information not available 10/14/2022 How Much Tobacco Do You Chew? None MIGRATION.030 762877 Information not available 10/14/2022 In The 14 Days Before Symptom Onset, Have You Had Close Contact With A Laboratory-conf irmed COVID-19 While That Case Was Ill? No MIGRATION.030 524075 Information not available 10/14/2022 In The 14 Days Before Symptom Onset, Have You Had Close Contact With A Person Who Is Under Investigation For COVID-19 While That Person Was Ill? No MIGRATION.030 [id number] Information not available 10/14/2022 Are You Deaf Or Do You Have Serious Difficulty Hearing? Yes Loss Of Hearing Both Ears [email or web address] Information not available 02/07/2024 What Type Of Diet Are You Following? REGULAR MIGRATION.030 300520 Information not available 10/14/2022 Which Illicit Or Recreational Drugs Have You Used? None MIGRATION.030 037893 Information not available 10/14/2022 What Is The Highest Grade Or Level Of School You Have Completed Or The Highest Degree You Have Received? AZ95051-1 MIGRATION.300026 Information not available 10/14/2022 Do You Have An Electrostatic Air Filter? No Information not available 11/22/2023 How Many Days Of Moderate To Strenuous Exercise, Like A Brisk Walk, Did You Do In The Last 7 Days? 4 [email or web address] Information not available 02/07/2024 On Those Days That You Engage In Moderate To Strenuous Exercise, How Many Minutes, On Average, Do You Exercise? 29 [email or web address] Information not available 02/07/2024 Have There Been Any Changes To Your Family Or Social Situation? No MIGRATION.0301 386474 Information not available 10/14/2022 What Is The Fluoride Status Of Your Home? Unknown MIGRATION.0301 849614 Information not available 10/14/2022 When Did You Quit Smoking? 1-5yearssincelastc igarette [email or web address] Information not available 02/07/2024 Are There Any Guns Present In Your Home? Yes [email or web address] Information not available 02/07/2024 Do You Have A Humidifier? No Information not available 11/22/2023 Do You Use Insect Repellent Routinely? No MIGRATION.0301 [id number] Information not available 10/14/2022 Where Do You Live? SingleLevelHouse MIGRATION.0301 026195 Information not available 10/14/2022 Presence Of Domestic Violence No [email or web address] Information not available 02/07/2024 Guns Present In The Home? Yes Information not available 02/07/2024 Are You Able To Care For Yourself? Yes [email or web address] Information not available 02/07/2024 Are You Blind Or Do Yo Have Difficulty Seeing? No [email or web address] Information not available 02/07/2024 Are You Deaf Or Do You Have Serious Difficulty Hearing? Yes SANTO DOMINGO [email or web address] Information not available 02/07/2024 General Stress Level? Low Information not available 02/07/2024 Live Alone Of With Others? With Others [email or web address] Information not available 02/07/2024 Do You Have A Medical Power Of Bit Bender? No MIGRATION.0301 644660 Information not available 10/14/2022 Do You Have Moisture Problems In Your Home? No Information not available 11/22/2023 What Was The Date Of Your Most Recent Tobacco Screening? 11/27/2024 Information not available 11/27/2024 Have You Ever Been Counseled For Unhealthy Alcohol Use? No MIGRATION.0301 581139 Information not available 10/14/2022 Do You Have Any Pets? Yes Dog [email or web address] Information not available 02/07/2024 What Is Your Relationship Status? MIGRATION.0301 527800 Information not available 10/14/2022 Do You Use Your Seat Belt Or Car Seat Routinely? Yes MIGRATION.0301 501555 Information not available 10/14/2022 Do You Have Smoke And Carbon Monoxide Detectors In Your Home? Yes MIGRATION.0301 333587 Information not available 10/14/2022 At What Age Did You Start Smoking Tobacco? 20 MIGRATION.0301 939881 Information not available 10/14/2022 Are You Passively Exposed To Smoke? No [email or web address] Information not available 02/07/2024 Are There Any Smokers In Your House? No [email or web address] Information not available 02/07/2024 How Much Tobacco Do You Smoke? No [email or web address] Information not available 02/07/2024 What Types Of Sporting Activities Do You Participate In? None MIGRATION.0301 494549 Information not available 10/14/2022 Do You Use Sunscreen Routinely? No MIGRATION.0301 923702 Information not available 10/14/2022 Has Tobacco Cessation Counseling Been Provided? No Information not available 02/07/2024 How Many Years Have You Smoked Tobacco? 43 Information not available 02/07/2024 Have You Recently Traveled Abroad? No MIGRATION.0301 541354 Information not available 10/14/2022 Do You Have Any Dietary Restrictions? No MIGRATION.0301 413610 Information not available 10/14/2022 Sex: Male Functional Status Question Answer Note LastModified by OrganNulogy[employer] ion Details LastModified Time Do you or have you ever used smokeless tobacco? Never used smokeless tobacco MIGRATION.82381 18199 Information not available 10/14/2022 Are you currently employed? No [email or web address] Information not available 02/07/2024 Do you have difficulty walking or climbing stairs? Yes MIGRATION.84163 12467 Information not available 10/14/2022 Have you been exposed to chemicals or toxins? Not that aware of Information not available 11/22/2023 Do you have transportation difficulties? No MIGRATION.06799 64140 Information not available 10/14/2022 Are you able to care for yourself? Yes MIGRATION.35702 83049 Information not available 10/14/2022 Do you have difficulty dressing or bathing? No MIGRATION.69652 65378 Information not available 10/14/2022 Do you or have you ever used e-cigarettes or vape? Never used electronic cigarettes MIGRATION.44748 40854 Information not available 10/14/2022 What is your exercise level? Occasional walks dog MIGRATION.44271 97309 Information not available 10/14/2022 Do you use any illicit or recreational drugs? No MIGRATION.34660 82127 Information not available 10/14/2022 Do you or have you ever used any other forms of tobacco or nicotine? No MIGRATION.39768 93867 Information not available 10/14/2022 What is your level of alcohol consumption? None MIGRATION.27552 03917 Information not available 10/14/2022 Are you able to walk? YESWOREST MIGRATION.98072 79733 Information not available 10/14/2022 Do you have difficulty doing errands alone? No MIGRATION.56022 46669 Information not available 10/14/2022 What is your occupation? RETIRED MIGRATION.04669 58297 Information not available 10/14/2022 Mental Status Question Answer Note LastModified by Organizat ion Details LastModified Time Do you feel stressed (tense, restless, nervous, or anxious, or unable to sleep at night)? [id number] MIGRATION.31658756 26 Information not available 10/14/2022 Do you have difficulty concentrating, remembering or making decisions? No MIGRATION.29721305 26 Information not available 10/14/2022 Family History Relationship Description Onset Age of this Age Resolved Age Notes LastModified by Organization Details LastModified Time Brother Essential hypertension MIGRATION.800 [id number] Not available 10/14/2022 04:43:06 Father Myocardial infarction deceas ed MIGRATION.270 [id number] Not available 10/14/2022 04:43:06 Medical History Condition Response NERVE DISEASE N BLINDNESS N RHEUMATIC FEVER N KIDNEY STONES N BLADDER PROBLEMS N MRSA N OTHER # 1 N POLIO N LUNG DISEASE/DISORDER N RADIATION / CHEMOTHERAPY N COPD N Other # 2 N BLOOD DISEASES N EAR OR HEARING PROBLEMS N MUMPS N BOWEL PROBLEMS N DEPRESSION (INCLUDING POST ) N STROKE/TIA Y ULCERS N BENIGN PROSTATIC HYPERPLASIA N MEASLES N MYOCARDIAL INFARCTION N OBESITY N GERD/NAUSEA N ANEURYSM N URINARY/BLADDER/KIDNEY PROBLEMS N CORONARY ARTERY DISEASE (CAD) N ADDICTION CONCERNS N ENDOMETRIOSIS N Impotence N USE OF BLOOD THINNERS N SKIN [...] APNEA Y CHICKENPOX N INFECTIOUS DISEASE N HEART ARRHYTHMIA N PROSTATE N INSOMNIA N HIGH CHOLESTEROL / HYPERLIPIDEMIA Y HYPERTHYROIDISM N EYE PROBLEMS N EDEMA N CHRONIC PAIN SYNDROME N HYPOTHYROIDISM N CAROTID BLOCKAGE Y CONSTIPATION N BACK / NECK PROBLEMS N HAVE YOU BEEN HOSPITALIZED OR SEEN IN [facility] ER IN THE PAST YEAR ? N ATHEROSCLEROSIS N BREAST PROBLEMS N DIALYSIS N ECZEMA N OSTEOPOROSIS N ARTHRITIS Y APPENDICITIS N DIABETES, TYPE N BAD TEETH N ENT N HEARTBURN / REFLUX N AUTISM SPECTRUM DISORDER (ASD) N HEPATITIS / LIVER DISEASE N GOUT N SLEEP DISORDER N ALZHEIMER'S DISEASE N Brain Problems N HERPES N DEMENTIA N HEADACHES/MIGRAINES N SEIZURES/EPILEPSY N VASCULAR DISEASE N PACEMAKER N Blood Disorder N DIZZINESS N HEART DISEASE/HEART PROBLEMS N KIDNEY DISEASE N MULTIPLE SCLEROSIS N CARDIAC ARRHYTHMIA N CANCER: SPECIFY Y ATRIAL FIBRILLATION N Gall Stones N PULMONARY EMBOLISM N AUTOIMMUNE DISEASE N Immunizations Vaccine Type Date Status Note Provider Nam e and Address Organization Details Recorded Time COVID-19, mRNA, LNP-S, PF, 100 mcg/0.5mL dose or 50 mcg/0.25mL dose 1 completed ROMAN Claudio, [employer] 08/02/2024 09:22:40 COVID-19, mRNA, LNP-S, PF, 100 mcg/0.5mL dose or 50 mcg/0.25mL dose 1 completed Lois Hawthorne RMYoselin vanegas, [employer] 08/02/2024 09:22:40 Influenza, high-dose, quadrivalent, PF 0 completed Not Available [facility] 04/16/2023 07:47:53 COVID-19, mRNA, LNP-S, PF, 100 mcg/0.5mL dose or 50 mcg/0.25mL dose 1 completed ROMAN Claudio, [employer] [facility] [employer] 08/02/2024 09:22:40 Influenza, high-dose, trivalent, PF 9 completed Not Available [facility] 04/16/2023 07:47:53 pneumococcal polysaccharide PPV23 8 completed Not Available [facility] 04/16/2023 07:47:53 Influenza, high-dose, trivalent, PF 8 completed Not Available [facility] 04/16/2023 07:47:53 Influenza, split virus, quadrivalent, PF 5 completed Not Available [facility] 04/16/2023 07:47:53 Pneumococcal conjugate PCV 13 4 completed Lois Hawthorne RMA null, [place] [facility] [employer] [facility] 08/02/2024 09:22:40 Influenza, split virus, trivalent, PF 4 completed Lois Hawthorne RMA null, [facility] 08/02/2024 09:22:40 Influenza, high-dose, quadrivalent, PF 3 completed Geo Kuo MD [address] [place] [address], [address] [address], [place], [address], [facility] 06/07/2023 22:43:16 Influenza, high-dose, trivalent, PF 4 completed Lois Hawthorne RMA null, [facility] 05/31/2024 10:56:43 Past Encounters Encounter ID Performer Location Encounter Start Date Encounter Closed Date Diagnosis/Indication Diagnosis SNOMED-CT Code Diagnosis ICD10 Code Diagnosis Note [id number] Geo Kuo MD [facility] Internal Med [facility] 2043 [facility], [address] [address] 01/24/2021 00:00:00 01/26/2021 21:53:40 [id number] Geo Kuo MD [facility] Internal Med [facility] 15 2043 [facility], [address] [address] 05/16/2021 00:00:00 05/17/2021 12:31:56 [id number] Geo Kuo MD [facility] Internal Med [facility] 15 [facility]43 [facility], [address] [address] 11/12/2021 00:00:00 11/12/2021 21:11:22 [id number] Geo Kuo MD [facility] Internal Med [facility] 15 2043 [facility], [address] [address] 06/15/2022 00:00:00 07/26/2022 16:11:43 [id number] Geo Kuo MD [facility] Internal Med [facility] [address] [place] [address] [place]., [address] [address] 12/02/2022 15:53:12 12/02/2022 17:14:53 Bronchitis [id number] J40 [id number] Geo Kuo MD [facility] Internal Med [facility] [address] [address] 02/08/2023 11:14:16 02/08/2023 12:15:24 Benign essential hypertension 7544634 I10 Carotid ar anurag stenosis 24381449 I65.29 Chronic ly mphoid leukemia, disease 78123194 C91.90 Osteoarthritis 786386273 M19.90 [id number] Geo Kuo MD [facility] Internal Med [facility] [address] [facility] [address] 06/07/2023 09:44:38 06/07/2023 10:59:56 Administration of influenza vaccine 43106199 Z23 Peripheral vascular disease 168627541 I73.9 Coronary arteriosclerosis 03208586 I25.10 Benign ess ential hypertension 9871000 I10 Chronic ly mphoid leukemia, disease 06138223 C91.90 [id number] Wai wilburn MD [facility] Internal Med Paul tsein [address] [place] [address] , [facility] [place] [address] 10/06/2023 15:39:29 10/06/2023 16:43:54 Screening - NAD 541966664 Z13.9 C-scope: Get this if not done Get yearly flu shotGet Tdap if not doneGet shingrix vaccineGet RSV vaccine RTC in 3 months, do labs, ER if worse, he and his verbalized his understand ing of the above Essential hypertension 23732406 I10 On ASA 81mg dailyOn amlodipine 10mg dailyOn HCTZ 25mg dailyGet labs Hyperlipidemia 96942016 E78.5 On ASAOn atorvastat in 80mg dailyGet labs Screening for malignant neoplasm of prostate 282694671 Z12.5 Smoker 85976046 F17.200 Advised to quitGet LDCTAs per oncology note US AAA 4.7 Obstructiv e sleep apnea syndrome 08380205 G47.33 On CPAPNe[address] to see Dr Magui Nixon ly mphoid leukemia, disease 11558775 C91.10 MRI brain 06/01/2023 : Dr Astudillo for headaches Dr Astudillo 09/08/2023 , f/u 6 months Peripheral vascular disease 256855090 I73.[address] 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 Screening for malignant neoplasm of colon 943388860 Z12.11 [id number] Paola Kilgore MD [facility] Pulmonolo gy [address] [place] [address] 11/22/2023 08:23:05 11/23/2023 09:06:20 Sleep apnea 05876520 G47.30 G47.33 G47.61 G47.36 Smoker 67683570 F17.218 F17.219 Z87.499 [id number] Wai wilburn MD [facility] Internal Med [facility] [address] , [facility] [place] [address] 02/07/2024 09:55:28 02/07/2024 11:04:10 Screening - NAD 554740731 Z13.9 C-scope: Get this if not done Get yearly flu shotGet Tdap if not doneGet shingrix vaccineGet RSV vaccine RTC in 2 months, do labs, ER if worse, he and his verbalized his understand ing of the above Essential hypertension 22749412 I10 On ASA 81mg dailyOn amlodipine 10mg dailyOn HCTZ 25mg dailyGet labs Hyperlipidemia 99968210 E78.5 On ASAOn atorvastat in 80mg dailyGet labs Smoker 60446977 F17.200 Advised to quitLDCT 10/21/2023 : Emphysema, CAD, LANAs per oncology note US AAA 4.7 Obstructiv e sleep apnea syndrome 89772776 G47.33 On CPAPNeeds to see Dr Magui Nixon ly mphoid leukemia, disease 69437241 C91.10 MRI brain 06/01/2023 : Dr Astudillo for headaches Dr Astudillo 09/08/2023 , f/u 6 monthsWill get another referral to Dr Eric Peripheral vascular disease 231033459 I73.[address] 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 11/30/2023 : ECHO 55%, US Carotid: Dr Banegas, occlusion, US AAA: 4.4 cm OV 02/07/2024 : Will see Dr Fragoso in [facility] as per his history Screening for malignant neoplasm of colon 663311239 Z12.11 Prostate s pecific antigen above reference range 983873427 R97.20 High normal PSAGet a referral to urology Mediastina l lymphadenopathy 86991713 R59.0 Needs to see oncology Adult heal th examination 927477532 Z00.00 Screening for disorder 679793725 Z13.9 [id number] Wai wilburn MD [facility] Internal Med Paul sam [address] [facility] [address] [address] 03/20/2024 11:28:06 03/20/2024 12:39:19 Screening - NAD 524693319 Z13.9 C-scope: Get this if not done Get yearly flu shotGet Tdap if not doneGet shingrix vaccineGet RSV vaccine RTC in 2 months, do labs, ER if worse, he verbalized his understand ing of the above Essential hypertension 54491535 I10 On ASA 81mg dailyOn amlodipine 10mg dailyOn HCTZ 25mg dailyGet labs Hyperlipidemia 33928549 E78.5 On ASAOn atorvastat in 80mg dailyGet labs Smoker 48776670 F17.200 Advised to quit!LDCT 10/21/2023 : Emphysema, CAD, LANAs per oncology note US AAA 4.7 Obstructiv e sleep apnea syndrome 75124121 G47.33 On CPAPNeeds to see Dr Kilgore Chronic ly mphoid leukemia, disease 34218394 C91.10 MRI brain 06/01/2023 : Dr Astudillo for headaches Dr Astudillo 09/08/2023 , f/u 6 monthsWill get another referral to Dr Eric Peripheral vascular disease 645656065 I73.[address] 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 11/30/2023 : ECHO 55%, US Carotid: Dr Banegas, occlusion, US AAA: 4.4 cm OV 02/07/2024 : Will see [facility] Fragoso in [facility] as per his historyOV 03/20/2024 : States that he will see Dr Banegas Screening for malignant neoplasm of colon 734443910 Z12.11 Prostate s pecific antigen above reference range 775918282 R97.20 High normal PSAGet a referral to urology Mediastina l lymphadenopathy 54393884 R59.0 Needs to see oncology Hyperbilirubinemia 49557 006 E80.6 US Liver 03/07/2024 : Hepatomega ly Hepatomegaly 59876126 R1 6.0 US liver 03/07/2024 : Hepatomega ly, get a referral to GI [id number] Wai wilburn MD [facility] Internal Med Paul stein [address] [facility] , [place] [address] 05/31/2024 09:41:29 05/31/2024 10:18:41 Screening - NAD 812697237 Z13.9 C-scope: Get this if not done Get yearly flu shotGet Tdap if not doneGet shingrix vaccineGet RSV vaccine RTC in 2 months, do labs, ER if worse, he verbalized his understand ing of the above Essential hypertension 65624165 I10 On ASA 81mg dailyOn amlodipine 10mg dailyOn HCTZ 25mg dailyGet labs Hyperlipidemia 03409056 E78.5 On ASAOn atorvastat in 80mg dailyGet labs Smoker 19492952 F17.200 Advised to quit!LDCT 10/21/2023 : Emphysema, CAD, LANAs per oncology note US AAA 4.7 Obstructiv e sleep apnea syndrome 63966016 G47.33 On CPAPNeeds to see Dr Magui owens mphoid leukemia, disease 06324618 C91.10 MRI brain 06/01/2023 : Dr Astudillo for headaches Dr Astudillo 09/08/2023 , f/u 6 monthsDr Sarmad 03/08/2024 Peripheral vascular disease 450520614 I73.[address] 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 11/30/2023 : ECHO 55%, US Carotid: Dr Banegas, occlusion, US AAA: 4.4 cm OV 02/07/2024 : Will see [facility] Fragoso in [facility] as per his historyOV 03/20/2024 : States that he will see Dr Tavares 05/31/2024 : See [facility] referral again provided Screening for malignant neoplasm of colon 745806416 Z12.11 Prostate s pecific antigen above reference range 880883159 R97.20 High normal PSAToday 05/31/2024 , states that he did see Dr Remi brandon lymphadenopathy 94541407 R59.0 Needs to see oncology Hyperbilirubinemia 03686 006 E80.6 US Liver 03/07/2024 : Hepatomega ly Hepatomegaly 65877016 R1 6.0 US liver 03/07/2024 : Hepatomega ly, get a referral to GI Abdominal aortic aneurysm 495181376 I71.40 OV 05/31/2024 :Has seen Dr Fragoso as per Dr Astudillo's notes, states that he does have a f/u apt with Dr Fragoso again, he also has to see Dr Banegas [facility] Administra tion of influenza vaccine 99137591 Z23 [id number] Wai wilburn MD [facility] [address] [place] [address] 08/28/2024 10:54:16 08/28/2024 12:04:08 Screening - NAD 699578349 Z13.9 C-scope: Get this if not done, referred again 08/28/2024 Get yearly flu shotGet Tdap if not doneGet shingrix vaccineGet RSV vaccineUTD on PCV #13 and #23 RTC in 1 months, do labs, ER if worse, he verbalized his understand ing of the above Essential hypertension 41409802 I10 On ASA 81mg dailyOn amlodipine 10mg dailyOn HCTZ 25mg dailyGet labs Hyperlipidemia 76024748 E78.5 On ASAOn atorvastat in 80mg dailyGet labs Smoker 84602892 F17.200 Advised to quit!LDCT 10/21/2023 : Emphysema, CAD, LANAs per oncology note US AAA 4.7 Obstructiv e sleep apnea syndrome 38158674 G47.33 On CPAPNeeds to see Dr Magui Nixon ly mphoid leukemia, disease 53744943 C91.10 MRI brain 06/01/2023 : Dr Astudillo for headaches Dr Astudillo 09/08/2023 , f/u 6 monthsDr Sarmad 03/08/2024 Peripheral vascular disease 746776590 I73.[address] 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 11/30/2023 : ECHO 55%, US Carotid: Dr Banegas, occlusion, US AAA: 4.4 cm OV 02/07/2024 : Will see Dr Fragoso in [facility] as per his historyOV 03/20/2024 : States that he will see Dr BanegasOV 05/31/2024 : See [facility] referral again provided Screening for malignant neoplasm of colon 692293049 Z12.11 Prostate s pecific antigen above reference range 279480469 R97.20 Get a referral to urology Mediastina l lymphadenopathy 74986656 R59.0 Needs to see oncology Hyperbilirubinemia 84814 006 E80.6 US Liver 03/07/2024 : Hepatomega ly Hepatomegaly 19626363 R1 6.0 US liver 03/07/2024 : Hepatomega ly, get a referral to GI Abdominal aortic aneurysm 581252207 I71.40 OV 05/31/2024 :Has seen Dr Fragoso as per Dr Astudillo's notes, states that he does have a f/u apt with Dr Fragoso again, he also has to see Dr Banegas [facility] Pain of le ft hip joint 7508670002 18207 M25.552 Get xrays Addnedum: 08/30/2024 : Xrays noted, did get a call from radiology regarding aneurysm, case sent to triage [id number] Wai wilburn MD [facility] [address] [place] [address] 11/27/2024 09:37:57 11/27/2024 11:01:19 Screening - NAD 746324432 Z13.9 C-scope: Get this if not done, referred again 08/28/2024 Get yearly flu shotGet Tdap if not doneGet shingrix vaccineGet RSV vaccineUTD on PCV #13 and #23 RTC in 3 months, do labs, ER if worse, he verbalized his understand ing of the above Essential hypertension 66012076 I10 On ASA 81mg dailyOn amlodipine 10mg dailyOn HCTZ 25mg dailyGet labs Hyperlipidemia 77523842 E78.5 On ASAOn atorvastat in 80mg dailyGet labs Smoker 07018873 F17.200 Advised to quit!LDCT 10/21/2023 : Emphysema, CAD, LANAs per oncology note US AAA 4.7 Obstructiv e sleep apnea syndrome 01989656 G47.33 On CPAPNeeds to see Dr Magui owens mphoid leukemia, disease 01568876 C91.10 MRI brain 06/01/2023 : Dr Astudillo for headaches Dr Astudillo 09/08/2023 , f/u 6 monthsDr Astudillo 03/08/2024 Peripheral vascular disease 915976546 I73.[address] 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 11/30/2023 : ECHO 55%, US Carotid: Dr Banegas, occlusion, US AAA: 4.4 cm OV 02/07/2024 : Will see [facility] Fragoso in [facility] as per his historyOV 03/20/2024 : States that he will see Dr BanegasOV 05/31/2024 : See [facility] referral again provided Screening for malignant neoplasm of colon 277193877 Z12.11 Prostate s pecific antigen above reference range 925169406 R97.20 Get a referral to urology Mediastina l lymphadenopathy 30252495 R59.0 Needs to see oncology Hyperbilirubinemia 73330 006 E80.6 US Liver 03/07/2024 : Hepatomega ly Hepatomegaly 86201293 R1 6.0 US liver 03/07/2024 : Hepatomega ly, get a referral to GI Abdominal aortic aneurysm 368558767 I71.40 OV 05/31/2024 :Has seen Dr Fragoso as per Dr Astudillo's notes, states that he does have a f/u apt with Dr Fragoso again, he also has to see Dr Banegas [facility] Pain of le ft hip joint 4314225739 41050 M25.552 Get xrays Addnedum: 08/30/2024 : Xrays noted, did get a call from radiology regarding aneurysm, case sent to triage Pain of bi lateral knee joints 2946617499 79347 M25.561 M25.714 [id number] Young Ferguson MD [facility] [address] [address] 12/11/2024 09:43:54 12/11/2024 11:08:38 Pain of bilateral knee joints 2096421735 02536 M25.569 Health Concerns Section Related Observation LastModified by Organization Detai ls LastModified Time None Recorded Concern Status LastModified by Organization Details LastModified Time None Recorded Advance Directives Directive N: info provided Payers Encounter Date Sequence Insurance Name Policy Number Policy Howell Covered Member ID Howell Member ID Guarantor Name 03/20/2024 1 [facility] (MEDICARE REPLACEMENT/A DVANTAGE - HMO) [id number] Geo Kay [id number] Geo Kay 05/31/2024 1 [facility] (MEDICARE REPLACEMENT/A DVANTAGE - HMO) [id number] Geo Kay [id number] Geo Kay 08/28/2024 1 [facility] (MEDICARE REPLACEMENT/A DVANTAGE - HMO) [id number] Geo Kay [id number] Geo Kay 11/27/2024 1 [facility] (MEDICARE REPLACEMENT/A DVANTAGE - HMO) [id number] Geo Kay [id number] Geo Kay 12/11/2024 1 [facility] (MEDICARE REPLACEMENT/A DVANTAGE - HMO) [id number] Geo Kay [id number] Geo Kay Notes Date Note Type Note Provider Name and Address Organization Details Recorded Time 03/20/2024 text/html OV 10/06/2023:He re to establish [...] he is 'eating everything' Wai Negrete MD [address] [place] [address], [place] [address], [place], [address], [place] [employer] 03/20/2024 12:48:49 05/31/2024 text/html OV 10/06/2023:He re to establish care Past Hx:COPDHLREGINA Reviewed social family and surgical history He [...] well, he has seen Dr Astudillo the chair caner Wai Negrete MD [address], [address], [place], [address], [employer] [facility] [employer] 05/31/2024 10:54:20 08/28/2024 text/html OV 10/06/2023:He re to establish care Past Hx:COPDIRASEMA Reviewed social family and surgical history He [...] well, he has seen Dr Astudillo the chair caner OV 08/28/2024: Here for his f/u apt, he is doing well today,he did sustain a fall and hit his back, mild LBP now, no N/T or weakness noted, would like to get xrays Wai Negrete MD [address] [facility], [address], [place], [address], [employer] [facility] [employer] 09/11/2024 09:20:59 11/27/2024 text/html OV 10/06/2023:He re to establish care Past Hx:COPDHLREGINA Reviewed social family and surgical history He [...] well, he has seen Dr Astudillo the chair caner OV 08/28/2024: Here for his f/u apt, [...] get the 'gel shots' Wai Negrete MD [address] [place] [address], [address], [place], [address], [place] [employer] [facility] 11/27/2024 11:48:52
--- OUTSIDE RECORDS SUMMARY | 2024-12-25 09:40 | XMS_ITS | Encounter Summary ---
Author Organization [employer] [facility] Address 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
--- OUTSIDE RECORDS SUMMARY | 2024-12-25 09:40 | XMS_ITS | Encounter Summary ---
Author Organization [employer] [facility] Address [address] [place] [address] Care Team Providers Care Energy Crop Farmer Name Role Phone Nba Negrete MD Primary Care Provider Encounter Details Date Type Department Care Team (Latest Contact Info) Description 06/21/2008 Outpatient Historical [facility] Lorenzo Nuñez MD [address] [place], [place] [address] [place] [address] -x0 (Work) Unspecified Backache Social History Tobacco Use Types Packs/Day Years Used Date Smoking Tobacco: Never Assessed Sex and Gender Information Value Date Recorded Sex Assigned at Not on file Legal Sex Male 4:56 AM CHIEF OF PARTY Gender Identity Not on file Sexual Orientation Not on file documented as of this encounter Plan of Treatment Not on file documented as of this encounter Procedures Procedure Name Priority Date/Time Associated Diagnosis Comments MRI LUMBAR W WO CONTRAST Routine 06/21/2008 9:18 AM CHIEF OF PARTY POC CREATININE Routine 06/21/2008 9:14 AM CHIEF OF PARTY documented in this encounter Results * MRI LUMBAR W WO CONTRAST (06/21/2008 9:18 AM CHIEF OF PARTY) Anatomical Region Laterality Modality Spine Other 06/21/2008 9:18 AM CHIEF OF PARTY Narrative 06/21/2008 7:20 PM CHIEF OF PARTY [place] [address] [place], [place] [address] Admit Date: 06/21/2008 GEO KAY Sex: M Admit Prov: LORENZO NUÑEZ Date: 1950 Primary Care Prov: GEO BRAVO CMRN: [id number] [id number] [facility] Ordering Prov: N/A Accession Number: [id number] Interpretation MR IMAGING OF LUMBAR SPINE WITH [...] DANIELA PLUNKETT 06/21/2008 19:19 Transcribed: 06/21/2008 10:[address] [facility] Procedure Note Daniela Plunkett MD - 06/21/2008 [facility] [address] [place], [place] [address] Admit Date: 06/21/2008 GEO KAY Sex: M Admit Prov: LORENZO NUÑEZ Date: 1950 Primary Care Prov: GEO BRAVO CMRN: [id number] Room: [facility] SSN: [id number] IMAGING SERVICES Ordering Prov: N/A Interpretation MR [...] DANIELA PLUNKETT 06/21/2008 19:19 Transcribed: 06/21/2008 10:[address] [facility] Lorenzo Nuñez MD MR ORDERABLES Final Result * POC CREATININE (06/21/2008 9:14 AM CHIEF OF PARTY) CREATININE POC 0.8 0.6 - 1.3 mg/dL [facility] GFR >60 >=60 mL/min/1.7 sq meter [facility] GFR, >60 >=60 mL/min/1.7 sq meter [facility] Capillary blood specimen (specimen) 06/21/2008 9:14 AM CHIEF OF PARTY 06/21/2008 9:14 AM CHIEF OF PARTY us Lorenzo Nuñez MD POINT OF CARE TESTING Edited INTERFACE SYSTEM Refer to clinic/hospital department [facility] CLIA# [id number] [address] [place] [place] [address] documented in this encounter Visit Diagnoses Diagnosis Backache, unspecified documented in this encounter Care Teams Energy Crop Farmer Relationship Specialty Start Date End Date Nba Negrete MD PCP - General Internal Medicine 02/11/24 documented as of this encounter
--- OUTSIDE RECORDS SUMMARY | 2024-12-25 09:40 | XMS_ITS | CONTINUITY OF CARE DOCUMENT ---
Author Name majo kasper Address Unknown Organization [facility] Address [address] [facility] [address] [place] [address] Phone [phone] Care Team Providers Care Rug Cleaning Supervisor Name Role Phone Makenzie ABRAHAM, Trini Brown Unavailable [phone] LLOYD LONG MD Unavailable [phone] WAI ROSE MD Unavailable [phone] PROBLEMS Condition Status Date Provider Notes Cardiology examination active Sherlyn Ventim iglia TOOL AND DIE MAKER APPRENTICE Peripheral vascular disease (PVD) active Am karis Ventimiglia TOOL AND DIE MAKER APPRENTICE Hyperlipidemia active Sherlyn Ventimiglia FN P Hypertension active Sherlyn Ventimiglia TOOL AND DIE MAKER APPRENTICE Body mass index (BMI) 30.0-30.9, adult active Sherlyn Ventimiglia TOOL AND DIE MAKER APPRENTICE CVA active Sherlyn Ventimiglia TOOL AND DIE MAKER APPRENTICE Nicotine dependence active Sherlyn Ventimigl ia TOOL AND DIE MAKER APPRENTICE CLL active Sherlyn Ventimiglia TOOL AND DIE MAKER APPRENTICE 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 ENCOUNTERS Date Type Provider Location Encounter Diag nosis - In-person encounter Office Visit Trini Banegas MD [facility] Pulmonary artery anomaly - In-person encounter Office Visit Trini Banegas MD [facility] Cardiology examinationPeripheral vascular disease (PVD)HyperlipidemiaHypertens ionBody mass index (BMI) 30.0-30.9, adultCVANicotine dependenceCLL VITAL SIGNS Date Observation Value Provider Body Mass Index (Ratio) 30.74 kg/m2 Pablito Banegas MD blood pressure, cuff size regular Issac davis Harvey blood pressure, diastolic 62 mm[Hg] Ta ryan Harvey blood pressure, systolic 138 mm[Hg] Tab itha Harvey oxygen saturation, oximetry 94 % Sherine Harvey respiratory rate E&M 12 /min Sherine Harvey pulse rate 111 /min Sherine Harvey weight E&M 220.4 [lb_av] Sherine Harvey height E&M 71 [in_i] Sherine Harvey Body Mass Index (Ratio) 30.68 kg/m2 Radu castillo Belt blood pressure, diastolic 80 mm[Hg] Li nkLogic blood pressure, systolic 132 mm[Hg] Shabana kLogic blood pressure, cuff size regular Ke rri Gruenedarylelder blood pressure, diastolic 80 mm[Hg] Ke rri [...] active TAKE 1 TABLET BY MOUTH DAILY Griselda Lea hydrochlorothiazide 25 mg tablet active TAKE [...] history of marijuana use no Sherlyn Ventimiglia [facility] drug use no Sherlyn Ventimig ayush [facility] alcohol use no Sherlyn Ventimig ayush [facility] smoking history, tot al pack/day 0.5 Sherlyn Ventimiglia [facility] cigarette use yes Sherlyn Ventimi glia [facility] smoking status Current every da y smoker Sherlyn Ventimiglia [facility] FAMILY HISTORY Family Member Condition Father CAD male <55 INSURANCE PROVIDERS Payer name Policy type / Coverage type Rison red republican ID AARP MEDICARE ADVANTAGE HMO-POS HMO [id number] ADVANCE DIRECTIVES Name Date DISCUSSED - NO DECISION MADE TREATMENT PLAN Date Name Performer Cardiology:Have him see vascular surgery at [facility], Dr. Richmond Banegas MD Cardiology:4-5 cigarettes/day Sa [...] arge.. Based on CT done 10/21/23 at [facility] Trini Banegas MD Cardiology: h istory of cva [...] abnormalities. Trini Banegas MD Cardiology:[facility] Cardiology:WILL PLAN ON GETTING PET CT SCAN WITH NUCLEAR IMAGING TO EVAL THE CORONARY CALCIFICATIONS AND FOR OCCLUSIVE CAD [facility] Cardiology:history o f cva o n asa and statin w ill update testing [facility] Cardiology:THERE IS CONCERN ABOUT AN ANEURYSM AND PT HAS HAS HAD ADVANCED PAD WITH PRIOR RIGHT CEA AND HAS HAD LOWER EXT PAD WILL ARRANGE FOR CAROTID ULTRASOUND AND CT [facility] Cardiology:On max do se Lipitor H is [...] once a day BP today: 132/[address] Lorenzo K[address] Name CT Angio, Carotids Complete Echo CT Angio, abdomen an d pelvis CT Angio Chest (Aort a) Aorta Duplex Ultraso und Carotid Duplex Bilat eral Stress Cardiac PET-C T HISTORY OF PROCEDURES Procedure Date Procedure Name Provider Procedure Notes S tatus EKG Trini Banegas MD compl eted EKG Trini Banegas MD compl eted
--- OUTSIDE RECORDS SUMMARY | 2024-12-25 09:40 | XMS_ITS | Patient Health Record ---
Author Organization [facility] Address [address] [place] [address] Care Team Providers Care Uptwister Tender Name Role Phone Mannie Casillas Primary Care Provider [phone] Reason For Referral No Information Immunizations Vaccine Route Administration Date Status Comme nts COVID-19 Moderna 2nd IM Intramuscular 12/05/2020 Administe red COVID-19 Moderna 1ST IM Intramuscular 11/07/2020 Administe red Plan Of Treatment No Information Insurance Providers Payer Name Payer Address Payer Phone Subscriber Number Group Number Insured Name Patient Relationship to Insured Coverage Start Date Coverage End Date [facility] [address] [place] [address] [id number] Geo Shipley Self - patient is the insured
--- OUTSIDE RECORDS SUMMARY | 2024-12-25 09:40 | XMS_ITS | Clinical Summary ---
Author Organization 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
--- NOTE | 2024-12-25 10:08 | ECG_ITS ---
Test Date: 2024-12-25 10:21:13 Measurements Intervals [place] Rate: 102 P: 44 VA: 158 QRS: 22 QRSD: 73 T: 51 QT: 328 QTc: 429 Interpretive Statements SINUS TACHYCARDIA WITH OCCASIONAL VENTRICULAR PREMATURE COMPLEXES WITH OCCASIONAL SUPRAVENTRICULAR PREMATURE COMPLEXES ABNORMAL RHYTHM ECG No previous ECG available for comparison Electronically Signed On 12-26-2024 14:34:22 CDT by Argenis Brown M.D.
--- NOTE | 2024-12-25 10:12 | ED_ITS ---
HPI - Extremity Problem General Chief complaint: Extremity Problem,Nontraumatic Stated complaint: L ARM SWELLING, NO KNOWN INJURY Time Seen by Provider: 12/25/24 09:40 History of Present Illness HPI Narrative: Patient is a 74-year-old male who presents to the ER with left forearm and elbow swelling that started approximately 1 week ago. He reports this happened to him a couple of years ago and I popped it and squeezed all the stuff out of it, but I figured I should come in this time instead of doing that again. Patient denies any recent fevers, decreased range of motion or other areas of concern on his body. He endorses a history of a stroke, hernia repair, carotid bypass, femoral bypass, and CLL. Patient reports he is also cigarette smoker. Related Data Allergies Allergy/AdvReac Type Severity Reaction Status Date / Time No Known Allergies Allergy Verified 12/25/24 09:47 Review of Systems 2 Review of Systems: All systems reviewed & are unremarkable except as noted in HPI and below Exam 2 Narrative: GENERAL: Well appearing, well-nourished, non-toxic, in no acute distress. HEAD: Normocephalic, atraumatic. NECK: Supple. No adenopathy, no masses. RESPIRATORY: Airway patent, respirations nonlabored. Clear to auscultation bilaterally, no rales, rhonchi, wheezing. CARDIOVASCULAR: Regular rate and rhythm without murmurs, rubs, or gallops. Peripheral pulses 2+ and equal bilaterally. ABDOMINAL: Soft, nontender, nondistended, no hepatosplenomegaly. Normoactive BS. MUSCULOSKELETAL: Moves all extremities. Strength/ROM intact without gross deformities. SKIN: Warm, dry, normal color. No rashes. Left posterior forearm swelling, hot to the touch, small area of hard induration (not appropriate for draining) NEURO: A&O X3. Speech clear. Cranial nerves II-XII intact. No ataxic movements. PSYCHIATRIC: Appropriate mood and affect. Normal interaction. Course Vital Signs Vital signs: Vital Signs Temperature 36.8 C 12/25/24 09:40 Pulse Rate 110 H 12/25/24 09:40 Respiratory Rate 17 12/25/24 09:40 Blood Pressure 158/73 H 12/25/24 09:40 Pulse Oximetry 95 12/25/24 09:40 Oxygen Delivery Room Air 12/25/24 09:40 Temperature 36.8 C 12/25/24 09:40 Pulse Rate 96 12/25/24 11:52 Respiratory Rate 15 12/25/24 11:52 Blood Pressure 120/68 12/25/24 11:52 Pulse Oximetry 93 12/25/24 11:52 Oxygen Delivery Room Air 12/25/24 09:40 MDM - Extremity (Nontraumatic) MDM Narrative Medical decision making narrative: Patient is a 74-year-old male who presents to the ER with left forearm and elbow swelling that started approximately 1 week ago. He reports this happened to him a couple of years ago and I popped it and squeezed all the stuff out of it, but I figured I should come in this time instead of doing that again. Patient denies any recent fevers, decreased range of motion or other areas of concern on his body. He endorses a history of a stroke, hernia repair, carotid bypass, femoral bypass, and CLL. Patient reports he is also cigarette smoker. Labs Ordered: CBC, CMP, lactic acid, troponin Imaging Ordered: Left forearm ultrasound, left forearm x-ray Medications Ordered: 1 L normal saline IV bolus, Clindamycin Results: Pt's x-ray indicates No acute osseous abnormality left forearm. No evidence of osteomyelitis seen. Osteoarthritic changes of the elbow joint. Pt's venuous ultrasound indicates 1. Patent left upper extremity veins. No evidence of venous thrombosis. 2. Nonspecific left cervical and left axillary lymphadenopathy which could be reactive given the reported recent concern for osteomyelitis at the left forearm. Differential would include lymphoma or metastatic disease in the appropriate clinical setting. Diagnosis: Left arm cellulitis Patient Education/Shared MDM: Results of lab work and imaging shared with patient. He endorses understanding of diagnosis. Patient strongly advised to maintain hydration status upon discharge and follow-up with their PCP as soon as possible. He will be discharged home with a prescription for Ciprofloxacin with first dose being given here. Strict return precautions provided. Patient verbalized understanding and is in agreement with plan. Vital signs stable at time of discharge. All questions answered. Differential Diagnosis Differential diagnosis: Likely cellulitis, superficial thrombophlebitis and deep venous thrombosis of upper extremity Lab Data 12/25/24 10:25 12/25/24 10:25 Labs: Lab Results 12/25/24 Range/Units 10:25 WBC 47.6 H (4.5-10.0) K/mm3 RBC 4.68 (4.6-6.20) M/mm3 Hgb 14.1 (14.0-18.0) g/dL Hct 44.7 (42.0-52.0) % MCV 95.5 (80-100) fl MCH 30.1 (26-34) pg MCHC 31.5 L (32-36) g/dl RDW 13.4 (11.5-14.5) % Plt Count 176 (150-375) k/mm3 MPV 10.4 (7.4-10.4) fl Immature Gran % (Auto) Not Reportable Neut % (Auto) Not Reportable Lymph % (Auto) Not Reportable [place] % (Auto) Not Reportable Eos % (Auto) Not Reportable Baso % (Auto) Not Reportable Lymph # (Auto) Not Reportable [place] # (Auto) Not Reportable Eos # (Auto) Not Reportable Baso # (Auto) Not Reportable Abs Immat Gran (auto) Not Reportable Absolute Neuts (auto) Not Reportable Absolute Nucleated RBC Not Reportable Total Counted 100 Neutrophils % (Manual) 32 L (46-73) % Band Neutrophils % 0 (0-6) % Lymphocytes % (Manual) 63 H (18-44) % Monocytes % (Manual) 2 L (3-9) % Metamyelocytes % 3 % Nucleated RBC % Not Reportable Abs Neuts (Manual) 15.23 H (1.3-6.7) K/mm3 Abs Lymphs (Manual) 29.98 H (1.1-4.5) K/mm3 Abs Monocytes (Manual) 0.95 H (0.1-0.90) K/mm3 Smudge Cells Present Platelet Estimate Adequate (Adequate) Anisocytosis 1+ [place] Cells 1+ Schistocytes None seen Sodium 139 (137-145) mmol/L Potassium 3.8 (3.4-5.0) mmol/L Chloride 100 (98-107) mmol/L Carbon Dioxide 30 (22-30) mmol/L Anion Gap 9 (4-12) mmol/L BUN 19 (9-20) mg/dL Creatinine 0.90 (0.7-1.3) mg/dL Estim Creat Clear Calc 76 ml/min Estimated GFR > 60 (59 - ) Glucose 155 H (65-110) mg/dL Lactic Acid 1.4 (0.7-2.0) mmol/L Calcium 8.8 (8.4-10.2) mg/dL Total Bilirubin 4.5 H (0.2-1.3) mg/dL AST 27 (17-59) U/L ALT 19 (6-50) U/L Alkaline Phosphatase 92 (38-126) U/L Troponin I 0.015 (0.000-0.034) ng/mL Total Protein 7.0 (6.3-8.2) g/dL Albumin 3.8 (3.5-5.1) g/dL Discharge Plan Discharge Clinical Impression: Cellulitis, Upper extremity pain, Edema of left upper extremity Patient Disposition: Home Condition: Stable Instructions: Antibiotic Form, Cellulitis (ED) Additional Instructions: Please return to the ER with any worsening symptoms. Follow-up with primary care provider as soon as possible. Take all medications as prescribed, including regularly scheduled medications. Complete your full dose of antibiotics. Patient Language: Serbian Prescriptions: New ciprofloxacin HCl 500 mg tablet 500 mg PO Q12H Qty: 14 0RF Follow-up/Referrals: Penelope,MD Nba [Primary Care Provider] - Time of Disposition: 11:46
--- OUTSIDE RECORDS SUMMARY | 2024-12-25 10:19 | XMS_ITS | CONTINUITY OF CARE DOCUMENT ---
Author Name majo kasper Address Unknown Organization [facility] Address [address] [facility] [address] [place] [address] Phone [phone] Care Team Providers Care Bottle Label Inspector Name Role Phone Makenzie ABRAHAM, Trini Brown Unavailable LLOYD LONG MD Unavailable [phone] WAI ROSE MD Unavailable PROBLEMS Condition Status Date Provider Notes Cardiology examination active Sherlyn Ventim iglia DIALYSIS PATIENT CARE TECHNICIAN Peripheral vascular disease (PVD) active Am karis Ventimiglia DIALYSIS PATIENT CARE TECHNICIAN Hyperlipidemia active Sherlyn Ventimiglia FN P Hypertension active Sherlyn Ventimiglia DIALYSIS PATIENT CARE TECHNICIAN Body mass index (BMI) 30.0-30.9, adult active Sherlyn Ventimiglia DIALYSIS PATIENT CARE TECHNICIAN CVA active Sherlyn Ventimiglia DIALYSIS PATIENT CARE TECHNICIAN Nicotine dependence active Sherlyn Ventimigl ia DIALYSIS PATIENT CARE TECHNICIAN CLL active Sherlyn Ventimiglia DIALYSIS PATIENT CARE TECHNICIAN 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 ENCOUNTERS Date Type Provider Location Encounter Diag nosis - In-person encounter Office Visit Trini Banegas MD [facility] Pulmonary artery anomaly - In-person encounter Office Visit Trini Banegas MD [place] [place] [facility] Cardiology examinationPeripheral vascular disease (PVD)HyperlipidemiaHypertens ionBody [...] Mass Index (Ratio) 30.68 kg/m2 Radu castillo [place] blood pressure, diastolic 80 mm[Hg] Li nkLogic blood pressure, systolic 132 mm[Hg] Shabana kLogic blood pressure, cuff size regular Ke rri Grueneadrylelder blood pressure, diastolic 80 mm[Hg] Ke rri [...] history of marijuana use no Sherlyn Ventimiglia [facility] drug use no Sherlyn Ventimig ayush [facility] alcohol use no Sherlyn Ventimig ayush [facility] smoking history, tot al pack/day 0.5 Sherlyn Ventimiglia [facility] cigarette use yes Sherlyn Ventimi glia [facility] smoking status Current every da y smoker Sherlyn Ventimiglia [facility] FAMILY HISTORY Family Member Condition Father CAD male <55 INSURANCE PROVIDERS Payer name Policy type / Coverage type [place] red alliance party ID AARP MEDICARE ADVANTAGE HMO-POS HMO [id number] ADVANCE DIRECTIVES Name Date DISCUSSED - NO DECISION MADE TREATMENT PLAN Date Name Performer Cardiology:Have him see vascular surgery at [facility], Dr. [place] Banegas MD Cardiology:4-5 cigarettes/day Sa [...] arge.. Based on CT done 10/21/[address] [facility] Trini Banegas MD Cardiology: h istory of [...] abnormalities. Trini Banegas MD [facility]iology[facility] Cardiology:WILL PLAN ON GETTING PET CT SCAN WITH NUCLEAR IMAGING TO EVAL THE CORONARY CALCIFICATIONS AND FOR OCCLUSIVE CAD [facility] Cardiology:history o f cva o n asa and statin w ill update testing [facility] Cardiology:THERE IS CONCERN ABOUT AN ANEURYSM AND PT HAS HAS HAD ADVANCED PAD WITH PRIOR RIGHT CEA AND HAS HAD LOWER EXT PAD WILL ARRANGE FOR CAROTID ULTRASOUND AND CT AORTA [facility] Cardiology:On max do se Lipitor H [...]
--- OUTSIDE RECORDS SUMMARY | 2024-12-25 10:19 | XMS_ITS | Encounter Summary ---
Author Organization [email or web address] Address [address] [place] [address] Care Team Providers Care Portable Sawmill Operator Name Role Phone Nba Negrete MD Primary Care Provider Encounter Details Date Type Department Care Team (Late st Contact Info) Description 02/18/2007 Outpatient Historical [facility] Support Serv. (Adt Cardiology-[facility]) [address] [place] [address] Frank Blankenship MD NO ADDRESS ON FILE Social History Tobacco Use Types Packs/Day Years Used Date Smoking Tobacco: Never Assessed Sex and Gender Information Value Date Recorded Sex Assigned at Not on file Legal Sex Male 4:56 AM VP TRAINING Gender Identity Not on file Sexual Orientation Not on file documented as of this encounter Plan of Treatment Not on file documented as of this encounter Visit Diagnoses Not on filedocumented in this encounter Care Teams Portable Sawmill Operator Relationship Specialty Start Date End Date Nba Negrete MD PCP - General Internal Medicine 02/11/24 documented as of this encounter
--- OUTSIDE RECORDS SUMMARY | 2024-12-25 10:19 | XMS_ITS | Encounter Summary ---
Author Organization [employer] [facility] Address 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 Gender Identity Not on file Sexual Orientation [...] and non- Americans is available on the [facility] Intranet at: [email or web address] Select: Lab Policies and Procedures Select: Reference Ranges - GFR 02/18/2007 12:4 0 PM CDT Lorenzo Pepper MD CHEMISTRY ORDERABLES Edited Performing Organization Address City/[facility] de Phone Number INTERFACE SYSTEM Refer to clinic/hospital department * HEMOGLOBIN AND HEMATOCRIT (02/18/2007 12:40 PM CDT) HEMOGLOBIN 15.8 13.6 - 16.5 g/dL INTERFACE SYSTEM HEMATOCRIT 45.3 40.0 - 48.0 % INTERFACE SYSTEM 02/18/2007 12:4 0 PM CDT Lorenzo Pepper MD HEMATOLOGY ORDERABLES Edited Performing Organization Address [facility] Co mt Phone Number INTERFACE SYSTEM Refer to clinic/hospital department documented in this encounter Visit Diagnoses Diagnosis Displacement of lumbar intervertebral disc without myelopathy- Primary documented in this encounter Care Teams Management Aide Relationship Specialty Start Date End Date Nba Negrete MD PCP - General Internal Medicine 02/11/24 documented as of this encounter
--- OUTSIDE RECORDS SUMMARY | 2024-12-25 10:19 | XMS_ITS | Encounter Summary ---
Author Organization [facility] Address 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 Gender Identity Not on file Sexual Orientation Not on file documented as of this encounter Plan of Treatment Not on file documented as of this encounter Procedures Procedure Name Priority Date/Time Associated Diagnosis Comments MRI LUMBAR W WO CONTRAST Routine 06/21/2008 9:18 AM TEAMSITE DEVELOPER POC CREATININE Routine 06/21/2008 9:14 AM TEAMSITE DEVELOPER documented in this encounter Results * MRI LUMBAR W WO CONTRAST (06/21/2008 9:18 AM TEAMSITE DEVELOPER) Anatomical Region Laterality Modality Spine Other 06/21/2008 9:18 AM TEAMSITE DEVELOPER Narrative 06/21/2008 7:20 PM TEAMSITE DEVELOPER [address] [address] [place], [place] [address] Admit Date: 06/21/2008 GEO KAY Sex: M Admit Prov: LORENZO NUÑEZ Date: 1950 Primary Care Prov: GEO BRAVO CMRN: [id number] [id number] [facility] Ordering Prov: N/A Accession Number: [id number] Interpretation MR IMAGING OF LUMBAR SPINE WITH [...] DANIELA PLUNKETT 06/21/2008 19:19 Transcribed: 06/21/2008 10:13 [facility] Procedure Note Daniela Plunkett MD - 06/21/2008 [facility] [address] [place], [place] [address] Admit Date: 06/21/2008 GEO KAY Sex: M Admit Prov: LORENZO NUÑEZ Date: 1950 Primary Care Prov: GEO BRAVO CMRN: [id number] Room: [facility] SSN: [id number] IMAGING SERVICES Ordering Prov: N/A Interpretation MR [...] DANIELA PLUNKETT 06/21/2008 19:19 Transcribed: 06/21/2008 10:13 [facility] Lorenzo Nuñez MD MR ORDERABLES Final Result * POC CREATININE (06/21/2008 9:14 AM TEAMSITE DEVELOPER) CREATININE POC 0.8 0.6 - 1.3 mg/dL [facility] GFR >60 >=60 mL/min/1.7 sq meter [facility] GFR, >60 >=60 mL/min/1.7 sq meter [facility] Capillary blood specimen (specimen) 06/21/2008 9:14 AM TEAMSITE DEVELOPER 06/21/2008 9:14 AM TEAMSITE DEVELOPER us Lorenzo Nuñez MD POINT OF CARE TESTING Edited INTERFACE SYSTEM Refer to clinic/hospital department [facility] CLIA# [id number] [address] [place] [address] documented in this encounter Visit Diagnoses Diagnosis Backache, unspecified documented in this encounter Care Teams Imaging Account Manager Relationship Specialty Start Date End Date Nba Negrete MD PCP - General Internal Medicine 02/11/24 documented as of this encounter
--- OUTSIDE RECORDS SUMMARY | 2024-12-25 10:19 | XMS_ITS | Encounter Summary ---
Author Organization [employer] [facility] Address 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) Social History Tobacco Use Types Packs/Day Years Used Date Smoking Tobacco: Never Assessed Sex and Gender Information Value Date Recorded Sex Assigned at Not on file Legal Sex Male 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
--- OUTSIDE RECORDS SUMMARY | 2024-12-25 10:19 | XMS_ITS | Clinical Summary ---
Author Organization [facility] Address [address] [place] [address] Phone Care Team Providers Care Address Change Clerk Name Role Phone Nba Negrete MD Primary [...] Description 12/07/2024 1:00 PM CDT [facility] [address] [place] [address] Jhonathan Bañuelos MD CLL (chronic lymphocytic leukemia) [...] on file Legal Sex Male 10:38 AM DIRECTOR OF PLANNING Gender Identity Not on file Sexual Orientation [...] Description 06/11/2025 1:00 PM CDT Office Visit [facility] [address] [place] [address] Jhonathan Bañuelos MD [address] [place] [address] Discharge Disposition: Discharged to home or Selfcare [...] from Last 3 Months Insurance [facility]IC[facility] Care Teams Address Change Clerk Relationship Specialty Start Date End Date Nba Negrete MD [address] [place] [address] PCP - General Internal Medicine 09/08/23
--- OUTSIDE RECORDS SUMMARY | 2024-12-25 10:20 | XMS_ITS | Clinical Summary ---
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
[2024-12-25 10:26] VITALS: BP 126/68; PULSE 103; RESP 17; O2SAT 93
[2024-12-25] MEDS: SODIUM CHLORIDE 0.9% IV 1,000 ML 999 ML IV CONT (10:26)
[2024-12-25 10:36] LABS: Hematocrit 44.7 % (42.0-52.0); Hemoglobin 14.1 g/dL (14.0-18.0); Mean Corpuscular HGB Conc 31.5 g/dl (32-36); Mean Corpuscular Hemoglobin 30.1 pg (26-34); Mean Corpuscular Volume 95.5 fl (80-100); Mean Platelet Volume 10.4 fl (7.4-10.4); Platelet Count Result 176 k/mm3 (150-375); Red Blood Count 4.68 M/mm3 (4.6-6.20); Red Cell Distribution Width 13.4 % (11.5-14.5); White Blood Count 47.6 K/mm3 (4.5-10.0)
[2024-12-25 10:50] LABS: Alanine Aminotransferase 19 U/L (6-50); Albumin Level 3.8 g/dL (3.5-5.1); Alkaline Phosphatase 92 U/L (38-126); Anion Gap 9 mmol/L (4-12); Aspartate Amino Transferase 27 U/L (17-59); Bilirubin,Total 4.5 mg/dL (0.2-1.3); Blood Urea Nitrogen 19 mg/dL (9-20); Calcium 8.8 mg/dL (8.4-10.2); Carbon Dioxide 30 mmol/L (22-30); Chloride 100 mmol/L (98-107); Estimated CRCL calculation 76 ml/min; Estimated Glomerular Filt Rate > 60; Glucose 155 mg/dL (65-110); Lactic Acid Reflex 1.4 mmol/L (0.7-2.0); Potassium 3.8 mmol/L (3.4-5.0); Sodium 139 mmol/L (137-145)
[2024-12-25 11:01] LABS: Neutrophils Percent Manual 32 % (46-73); Total Cells Counted 100
[2024-12-25 11:02] LABS: Anisocytosis 1+; Band Neutrophils Percent 0 % (0-6); Lymphocytes Absolute Manual 29.98 K/mm3 (1.1-4.5); Lymphocytes Percent Manual 63 % (18-44); Metamyelocytes Percent 3 %; Monocytes Absolute Manual 0.95 K/mm3 (0.1-0.90); Monocytes Percent Manual 2 % (3-9); Neutrophils Absolute Manual 15.23 K/mm3 (1.3-6.7); Platelet Estimate Adequate (Adequate); Troponin I 0.015 ng/mL (0.000-0.034)
[2024-12-25 11:03] LABS: Burr Cells 1+; Schistocytes None Seen; Smudge Cells PRESENT
[2024-12-25 11:20] VITALS: BP 123/66; PULSE 97; RESP 15; O2SAT 93
[2024-12-25 11:52] VITALS: BP 120/68; PULSE 96; RESP 15; O2SAT 93
[2024-12-25] MEDS: CIPROFLOXACIN 500 MG TAB PO (11:59)
== END 2024-12-25 13:26 | disposition home or self-care (01) ==
PROVIDERS: Emergency Provider Registered Nurse; PCP Internal Medicine
DX: L03.114 Cellulitis of left upper limb (principal); F17.210 Nicotine dependence, cigarettes, uncomplicated; Z86.73 Personal history of transient ischemic attack (TIA), and cerebral infarction without residual deficits; Z95.1 Presence of aortocoronary bypass graft
CPT/HCPCS: 36415; 73090; 80053; 83605; 84484; 85025; 87040; 93005; 93971; 96360; 99284; A9270; J7030

== ENCOUNTER 2024-12-29 10:24 | Inpatient (IN) | payer MEDICARE, SELFPAY ==
[2024-12-29] VITALS (7 sets, daily range): BP systolic 114–143; BP diastolic 60–71; PULSE 94–109; RESP 16–24; TEMP 36.4–37.4; O2SAT 88–92; BMI 32.3
--- NOTE | ~2024-12-29 | CT_ITS ---
EXAMINATION: CT forearm LT w con DATE: 12/29/2024 14:49 INDICATION: Left forearm infection. Assess for abscess. TECHNIQUE: High resolution computed tomography (CT) of the left forearm was performed with 100 mL Omn ipaque-350 intravenous contrast. Additional sagittal and coronal reconstructions were performed. Auto mated exposure control and iterative reconstruction technique were employed. The dose-length product was 450.96 mGy-cm. COMPARISON: None FINDINGS: Bone alignment is normal. No fracture. 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 No elbow joint effusion. Small enthesophyte at the olecranon and enthesopathic ossicles about the medial and lateral epicondyles. There is prominent soft tissue swelling with subcutaneous edema extending along the dorsal/ulnar aspect of the forearm. This surroun ds an approximately 9 x 4 x 2 cm region of fluid attenuation posterior to the proximal ulna which cou rses a few contrast-enhanced vessels with no peripheral enhancing wall to suggest organized abscess a nd more likely represents a region of phlegmonous change. There is an approximately 2 cm long lacerat ion along the overlying skin with a few tiny foci of soft tissue gas immediately underlying the lacer ation. No more remote or deeper soft tissue gas to suggest necrotizing fasciitis. The muscular compar tment of the forearm appear unremarkable. IMPRESSION: 1. Prominent subcutaneous edema surrounding a 9 x 4 x 2 cm region of likely phlegmonous change withou t evident organizing abscess located in the subcutaneous tissues dorsal to the proximal ulna and with small superficial skin laceration. Reviewed, dictated and finalized at location A. IMPRESSION: 1. Prominent subcutaneous edema surrounding a 9 x 4 x 2 cm region of likely phl egmonous change without evident organizing abscess located in the subcutaneous tissues dorsal to the proximal ulna and with small superficial skin laceration.
--- NOTE | ~2024-12-29 | XR_ITS ---
EXAMINATION: XR forearm LT 2V DATE: 12/29/2024 14:44 INDICATION: Infection TECHNIQUE: AP an lateral views of the left forearm were obtained. COMPARISON: none FINDINGS: Bone alignment is normal. No fracture. Mild polyarticular osteoarthritis at the left elbow, wrist and visualized hand. No elbow joint effusion. Heterotopic ossification along the medial and lateral nataly ral epicondyles which could be either chronic enthesopathic or sequela of old trauma. Prominent diffu se soft tissue swelling with subcutaneous edema about the elbow and proximal to mid forearm. There ar e a few tiny foci of gas dorsal to the proximal ulna. No radiopaque foreign bodies. IMPRESSION: 1. Prominent soft tissue swelling about the proximal to mid left forearm and left elbow with a few ti ny foci of soft tissue gas posterior to the proximal ulna. Which on immediately prior CT extends jeny g the small skin laceration or site of debridement. No more remote soft tissue gas identified to sugg est accessing fasciitis although this would be a clinical diagnosis. 2. Degenerative skeletal changes as detailed above. No acute osseous abnormality. Reviewed, dictated and finalized at location A. IMPRESSION: 1. Prominent soft tissue swelling about the proximal to mid left forearm and le ft elbow with a few tiny foci of soft tissue gas posterior to the proximal ulna . Which on immediately prior CT extends along the small skin laceration or site of debridement. No more remote soft tissue gas identified to suggest accessing fasciitis although this would be a clinical diagnosis. 2. Degenerative skeletal changes as detailed above. No acute osseous abnormalit y.
--- OUTSIDE RECORDS SUMMARY | 2024-12-29 10:26 | XMS_ITS | Clinical Summary ---
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 Gender Identity Not on file Sexual Orientation [...] Description 06/11/2025 1:00 PM CDT Office Visit [facility] [address] [place] [address] Jhonathan Bañuelos MD [address] [place] [address] Discharge Disposition: Discharged to home or Selfcare [...] on patient's age to complete this topic Human Papillomavirus (HPV) Immunization Aged Out No longer eligible based [...] WITH DIFF (11/28/2024 12:00 AM CDT) Blood us Jhonathan Bañuelos MD HEMATOLOGY ORDERABLES Fi nal Result SCAN * INTERNAL MEDICINE CONSULT (11/27/2024 12:00 AM CDT) 11/27/2024 us Provider Scan GENERIC SCAN ORDERS CONSULT Carmelita brandon Result SCAN from Last 3 Months Insurance [facility] Care Teams Detective Bowling Alley Relationship Specialty Start Date End Date Nba Negrete MD [address] [place] [address] PCP - General Internal Medicine 09/08/23
--- OUTSIDE RECORDS SUMMARY | 2024-12-29 10:26 | XMS_ITS | Encounter Summary ---
Author Organization [employer] [facility] Address 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 Gender Identity Not on file Sexual [...] and non- Americans is available on the [facility] Intranet at: [email or web address] Select: Lab Policies and Procedures Select: Reference Ranges - GFR 02/18/2007 12:4 0 PM CDT Lorenzo Pepper MD CHEMISTRY ORDERABLES Edited Performing Organization Address City/[facility] de Phone Number INTERFACE SYSTEM Refer to clinic/hospital department * HEMOGLOBIN AND HEMATOCRIT (02/18/2007 12:40 PM CDT) HEMOGLOBIN 15.8 13.6 - 16.5 g/dL INTERFACE SYSTEM HEMATOCRIT 45.3 40.0 - 48.0 % INTERFACE SYSTEM 02/18/2007 12:4 0 PM CDT Lorenzo Pepper MD HEMATOLOGY ORDERABLES Edited Performing Organization Address [facility] Co hi Phone Number INTERFACE SYSTEM Refer to clinic/hospital department documented in this encounter Visit Diagnoses Diagnosis Displacement of lumbar intervertebral disc without myelopathy- Primary documented in this encounter Care Teams Atmospheric Scientist Relationship Specialty Start Date End Date Nba Negrete MD PCP - General Internal Medicine 02/11/24 documented as of this encounter
--- OUTSIDE RECORDS SUMMARY | 2024-12-29 10:26 | XMS_ITS | Encounter Summary ---
Author Organization [employer] Address [address] [place] [address] Care Team Providers Care Gin Feeder Name Role Phone Nba Negrete MD Primary Care Provider Encounter Details Date Type Department Care Team (Late st Contact Info) Description 02/18/2007 Outpatient Historical [facility] Support Serv. (Adt Cardiology-[facility]) [address] 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
--- OUTSIDE RECORDS SUMMARY | 2024-12-29 10:27 | XMS_ITS | Patient Health Record ---
Author Organization [facility] Address [address] [place] [address] Care Team Providers Care Sagger Filler Name Role Phone Mannie Casillas Primary Care Provider Reason For Referral No Information Immunizations Vaccine Route Administration Date Status Comme nts COVID-19 Moderna 1ST IM Intramuscular 11/07/2020 Administe red COVID-19 Moderna 2nd IM Intramuscular 12/05/2020 Administe red Plan Of Treatment No Information Insurance Providers Payer Name Payer Address Payer Phone Subscriber Number Group Number Insured Name Patient Relationship to Insured Coverage Start Date Coverage End Date [facility] [address] [place] [address] [id number] Geo Shipley Self - patient is the insured
--- OUTSIDE RECORDS SUMMARY | 2024-12-29 10:27 | XMS_ITS | CONTINUITY OF CARE DOCUMENT ---
Author Name majo kasper Address Unknown Organization [facility] Address [address] [place] [address] Phone [phone] Care Team Providers Care Machine Feeder Name Role Phone Makenzie ABRAHAM, Trini Brown Unavailable LLOYD LONG MD Unavailable [phone] WAI ROSE MD Unavailable PROBLEMS Condition Status Date Provider Notes Cardiology examination active Sherlyn Ventim iglia PARTS CLERK PLANT MAINTENANCE Peripheral vascular disease (PVD) active Am karis Ventimiglia PARTS CLERK PLANT MAINTENANCE Hyperlipidemia active Sherlyn Ventimiglia FN P Hypertension active Sherlyn Ventimiglia PARTS CLERK PLANT MAINTENANCE Body mass index (BMI) 30.0-30.9, adult active Sherlyn Ventimiglia PARTS CLERK PLANT MAINTENANCE CVA active Sherlyn Ventimiglia PARTS CLERK PLANT MAINTENANCE Nicotine dependence active Sherlyn Ventimigl ia PARTS CLERK PLANT MAINTENANCE CLL active Sherlyn Ventimiglia PARTS CLERK PLANT MAINTENANCE 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 ENCOUNTERS Date Type Provider Location Encounter Diag nosis - In-person encounter Office Visit Trini Banegas MD [place] Pulmonary artery anomaly - In-person encounter Office Visit Trini Banegas MD [facility] Cardiology examinationPeripheral vascular disease (PVD)HyperlipidemiaHypertens ionBody [...] Mass Index (Ratio) 30.68 kg/m2 Radu castillo [place] blood pressure, diastolic 80 mm[Hg] Li nkLogic blood pressure, systolic 132 mm[Hg] Shabana kLogic blood pressure, cuff size regular Ke rri Gruenedarylelder blood pressure, diastolic 80 mm[Hg] Ke rri Gruenenfelder blood pressure, systolic 132 mm[Hg] Angus Lea oxygen saturation, oximetry 93 % Griselda Lea respiratory rate E&M 12 /min Griselda brennan pulse rate 94 /min Griselda Morales lder weight E&M 220 [lb_av] Grieslda [place] lder height E&M 71 [in_i] Griselda [...] history of marijuana use no Sherlyn Ventimiglia [facility] drug use no Sherlyn Ventimig ayush [facility] alcohol use no Sherlyn Ventimig ayush [facility] smoking history, tot al pack/day 0.5 Sherlyn Ventimiglia [facility] cigarette use yes Sherlyn Ventimi glia [facility] smoking status Current every da y smoker Sherlyn Ventimiglia [facility] FAMILY HISTORY Family Member Condition Father CAD male <55 INSURANCE PROVIDERS Payer name Policy type / Coverage type [place] red libertarian ID AARP MEDICARE ADVANTAGE HMO-POS HMO [id number] ADVANCE DIRECTIVES Name Date DISCUSSED - NO DECISION MADE TREATMENT PLAN Date Name Performer Cardiology:Have him see vascular surgery at [facility], Dr. Richmond Banegas MD Cardiology:4-5 cigarettes/day Sa [...] arge.. Based on CT done 10/21/23 at [facility] Trini Banegas MD Cardiology: h istory of [...] abnormalities. Trini Banegas MD [facility] Cardiology:WILL PLAN ON GETTING PET CT SCAN WITH NUCLEAR IMAGING TO EVAL THE CORONARY CALCIFICATIONS AND FOR OCCLUSIVE CAD [facility] Cardiology:history o f cva o n asa and statin w ill update testing [facility] Cardiology:THERE IS CONCERN ABOUT AN ANEURYSM AND PT HAS HAS HAD ADVANCED PAD WITH PRIOR RIGHT CEA AND HAS HAD LOWER EXT PAD WILL ARRANGE FOR CAROTID ULTRASOUND AND CT [facility] Cardiology:On max do se Lipitor H [...]
--- OUTSIDE RECORDS SUMMARY | 2024-12-29 10:27 | XMS_ITS | Encounter Summary ---
Author Organization [employer] [facility] Address 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 Gender Identity Not on file Sexual Orientation Not on file documented as of this encounter Plan of Treatment Not on file documented as of this encounter Procedures Procedure Name Priority Date/Time Associated Diagnosis Comments MRI LUMBAR W WO CONTRAST Routine 06/21/2008 9:18 AM RUBBER VULCANIZING MACHINE OPERATOR POC CREATININE Routine 06/21/2008 9:14 AM RUBBER VULCANIZING MACHINE OPERATOR documented in this encounter Results * MRI LUMBAR W WO CONTRAST (06/21/2008 9:18 AM RUBBER VULCANIZING MACHINE OPERATOR) Anatomical Region Laterality Modality Spine Other 06/21/2008 9:18 AM RUBBER VULCANIZING MACHINE OPERATOR Narrative 06/21/2008 7:20 PM RUBBER VULCANIZING MACHINE OPERATOR [place] [address] [place] [place], [place] [address] Admit Date: 06/21/2008 GEO KAY Sex: M Admit Prov: LORENZO NUÑEZ Date: 1950 Primary Care Prov: GEO BRAVO CMRN: [id number] [id number] [facility] Ordering Prov: N/A Accession Number: [id number] Interpretation MR IMAGING OF LUMBAR SPINE WITH [...] DANIELA PLUNKETT 06/21/2008 19:19 Transcribed: 06/21/2008 10:13 [facility] Procedure Note Daniela Plunkett MD - 06/21/2008 [facility] [address] [place], [place] [address] Admit Date: 06/21/2008 GEO KAY Sex: M Admit Prov: LORENZO NUÑEZ Date: 1950 Primary Care Prov: GEO BRAVO CMRN: [id number] Room: [facility] SSN: [id number] IMAGING SERVICES Ordering Prov: N/A Interpretation MR [...] DANIELA PLUNKETT 06/21/2008 19:19 Transcribed: 06/21/2008 10:13 [facility] Lorenzo Nuñez MD MR ORDERABLES Final Result * POC CREATININE (06/21/2008 9:14 AM RUBBER VULCANIZING MACHINE OPERATOR) CREATININE POC 0.8 0.6 - 1.3 mg/dL [facility] GFR >60 >=60 mL/min/1.7 sq meter [facility] GFR, >60 >=60 mL/min/1.7 sq meter [facility] Capillary blood specimen (specimen) 06/21/2008 9:14 AM RUBBER VULCANIZING MACHINE OPERATOR 06/21/2008 9:14 AM RUBBER VULCANIZING MACHINE OPERATOR us Lorenzo Nuñez MD POINT OF CARE TESTING Edited INTERFACE SYSTEM Refer to clinic/hospital department [facility] CLIA# [id number] [address] [place] [address] documented in this encounter Visit Diagnoses Diagnosis Backache, unspecified documented in this encounter Care Teams Handkerchief Presser Relationship Specialty Start Date End Date Nba Negrete MD PCP - General Internal Medicine 02/11/24 documented as of this encounter
--- OUTSIDE RECORDS SUMMARY | 2024-12-29 10:27 | XMS_ITS | Clinical Summary ---
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
--- OUTSIDE RECORDS SUMMARY | 2024-12-29 10:27 | XMS_ITS | Data Portability ---
Author Organization [place] - [facility], Main Office Address [address] [place] [address] Care Team Providers Care Home Theater Expert Name Role Phone WAI NEGRETE Primary Care Provider WAI NEGRETE Referring Provider JOSIE BANEGAS Poem Writer WAI NEGRETE Primary Care Provider YFN ASTUDILLO Hematology/Oncology [phone] PAOLA KILGORE Pest Control Service Technician Assessment Encounter Date Assessment Date Assessment [...] knees have severe degenerative osteoarthritic changes with [id number] medially and patellofemoral osteophyte formation. Clips in [...] available Lab lipid panel, serum [address] (Lab), [address] [place], [address], 11/27/2024 12:31:12 CBC w/ auto diff 2024 025 [facility] (Lab), [address] [place], [address], 11/28/2024 13:29:52 CMP, serum or plasma 2024 025 [facility] (Lab), [address] [place], [address], 11/28/2024 13:29:52 TSH, serum or plasma [address] (Lab), [address] [place], [address], 11/27/2024 12:31:13 lipid panel, serum 2024 025 [facility] (Lab), [address] [place], [address], 09/08/2024 18:10:20 CBC w/ auto diff 2024 025 [facility] (Lab), [address] [place], [address], 09/08/2024 18:10:20 CMP, serum or plasma 2024 025 [facility] (Lab), [address] [place], [address], 09/08/2024 18:10:20 TSH, serum or plasma [address] (Lab), [address] [place], [address], 08/28/2024 12:01:41 lipid panel, serum [address] (Lab), [address] [place], [address], 11/30/2024 08:39:40 CBC w/ auto diff [address] (Lab), [address] [place], [address], 11/30/2024 08:39:41 CMP, serum or plasma [address] (Lab), [address] [place], [address], 11/30/2024 08:39:41 TSH, serum or plasma [address] (Lab), [address] [place], [address], 11/30/2024 08:39:41 lipid panel, serum 2023 024 [facility] (Lab), [address] [place], [address], 05/22/2024 11:10:15 CBC w/ auto diff 2023 024 [facility] (Lab), [address] [place], [address], 05/22/2024 11:55:12 CMP, serum or plasma 2023 024 [facility] (Lab), [address] [place], [address], 05/22/2024 11:10:32 TSH, serum or plasma 2023 024 [facility] (Lab), [address] [place], [address], 05/22/2024 11:39:43 Referral vascular surgeon referral - Please call patient to schedule an appointm ent. Thank you. 2024 025 ELSIE Banegas MD, [address] [facility] [address], [address], 12/04/2024 10:00:31 hematolo gist/onc ologist referral - Please call patient to schedule an appointm ent. Thank you. 2024 025 ELSIE Astudillo MD, [address], [address], [place], [address], 12/04/2024 10:35:19 pulmonol ogist referral - Please call patient to schedule an appointm ent. Thank you. 2024 025 [email or web address] Paola Kilgore MD, [address] [place], [address], 12/04/2024 09:15:31 hepatolo gist referral - Add on referral order for 09/13/19 25 appt. 2024 025 [email or web address] Tracy Gruber MD, [address] [facility] [address], [address], 12/04/2024 09:11:45 orthoped ic surgeon referral - Please call patient to schedule an appointm ent. Thank you. 2024 025 LIZ Ferguson MD, [address] [facility], [place], [address], 12/12/2024 16:18:52 vascular surgeon referral - Please call patient to schedule . 2024 025 ELSIE Banegas MD, [address] [facility], [facility] [address], [place], [address], 10/05/2024 08:45:33 hematolo gist/onc ologist referral 2024 025 [email or web address] Yfn Astudillo MD, [address] [facility], [facility] [address], [place], [address], 08/29/2024 11:22:15 urologis t referral - Please call patient to schedule . 2024 025 [email or web address] Justin Blue, [address] [facility], [facility] [address], [place], [address], 10/05/2024 08:17:47 pulmonol ogist referral 2024 025 [email or web address] Paola Kilgore MD, [address] [place], [address], 08/29/2024 11:22:14 hepatolo gist referral - Add on referral order for 09/13/19 25 appt. 2024 025 aly Gruber MD, [address] [facility], [address], [place], [address], 10/30/2024 17:06:55 vascular surgeon referral 2023 024 [email or web address] Josie Banegas MD, [address] [facility], [facility] [address], [place], [address], 05/31/2024 10:43:57 hematolo gist/onc ologist referral 2023 024 [email or web address] Yfn Astudillo MD, [address], [address], [place], [address], 05/31/2024 10:43:58 urologis t referral 2023 024 [email or web address] Monty Khalil MD, [address] [facility] [address], [address], [place], [address], 05/31/2024 10:43:59 pulmonol ogist referral 2023 024 Paola Kilgore MD, [address] [facility] [place], [address], 05/31/2024 10:42:55 hepatolo gist referral 2023 024 [email or web address] Yvan Baltazar MD, [address] [place], [address], 05/31/2024 10:44:00 vascular surgeon referral 2023 024 [email or web address] Josie Banegas MD, [address] [facility], [address], [place], [address], 08/14/2024 16:12:16 urologis t referral 2023 024 [email or web address] 2 Monty Khalil MD, [address] [facility] [address], [address], [place], [address], 10/17/2024 08:32:54 pulmonol ogist referral 2023 024 Paola Kilgore MD, [address] [facility] [place], [address], 04/20/2024 09:23:21 hepatolo gist referral 2023 024 [email or web address] 2 Yvan Baltazar MD, [address] [place], [address], 10/17/2024 08:32:55 hematolo gist/onc ologist referral 2023 024 [email or web address] 2 Ariel Eric MD, [address], [place], [address], 10/17/2024 08:32:53 Procedures colonosc opy screenin g (PROC) - Please call patient to schedule an appointm ent. Thank you. 2024 025 [email or web address] Sainz MD, [address], [address], [place], [address], 12/04/2024 09:09:04 colonosc opy screenin g (PROC) - Please call patient to schedule . 2024 025 [email or web address] Deon Arreguin MD, [address] [facility] [address], [address], [place], [address], 08/29/2024 11:20:59 colonosc opy screenin g (PROC) 2023 024 [email or web address] Tracy Gruber MD, [address], [address], [place], [address], 2024 13:00:40 colonosc opy screenin g (PROC) 2023 024 [email or web address] Yuridia Aquino MD, [address], [address], [place], [address], 10/19/2024 11:01:12 Surgeries None recorded . Imaging XR, knee, 3 view 2024 025 [email or web address] [facility] [place], [address], [place], [address], 12/12/2024 23:07:25 XR, hip + pelvis, unilater al, 2 or 3 view - Stat hold and call 2024 025 [facility], [address], [address], [place], [address], 08/29/2024 12:35:18 XR, lumbosac ral spine, 2 or 3 view - Stat hold and call Dr Judy schroeder 2024 025 [facility], [address], [address], [place], [address], 08/29/2024 12:38:24 Medication Orders albutero l sulfate HFA 90 mcg/actu ation aerosol inhaler 2024 025 [id number], [address], [place], [place], [id number], 08/28/2024 12:00:17 Patient TargetsNo targets recorded. Patient Instructions Encounter Date Encounter Id Patient Instructions Last Modified By Organization Details Last Modified Time 12/11/2024 [id number] viscosupplementa tion treatment* - Teja knees Not available 12/11/2024 21:21:15 Reason for Referral Pest Control Service Technician Referral for O bstructive sleep apnea syndrome Referring Physician: Wai Negrete, Internal Medicine, Encounter Date: 03/20/2024 Vascular Surgeon Referral fo r Peripheral vascular disease Referring Physician: Wai Negrete Internal Medicine, Encounter Date: 03/20/2024 Referring Physician: Wai Negrete Internal Medicine, Encounter Date: 03/20/2024 Urologist Referral for Prost ate specific antigen above reference range Referring Physician: Wai Negrete Internal Medicine, Encounter Date: 03/20/2024 Cabin Supervisor Referral for He patomegaly Referring Physician: Wai Negrete Internal Medicine, Encounter Date: 03/20/2024 Pest Control Service Technician Referral for O bstructive sleep apnea syndrome Referring Physician: Wai Negrete Internal Medicine, Encounter Date: 05/31/2024 Vascular Surgeon Referral fo r Peripheral vascular disease Referring Physician: Wai Negrete Internal Medicine, Encounter Date: 05/31/2024 Referring Physician: Wai Negrete Internal Medicine, Encounter Date: 05/31/2024 Urologist Referral for Prost ate specific antigen above reference range Referring Physician: Wai Negrete Internal Medicine, Encounter Date: 05/31/2024 Cabin Supervisor Referral for He patomegaly Referring Physician: Wai Negrete Internal Medicine, Encounter Date: 05/31/2024 Pest Control Service Technician Referral for O bstructive sleep apnea [...] Referring Physician: Vish Moody, Encounter Date: 08/28/2024 Cabin Supervisor Referral for He patomegaly Add on referral order for 09/13/2024 appt. Referring Physician: Vish Moody, Encounter Date: 08/28/2024 Pest Control Service Technician Referral for O bstructive sleep apnea [...] Physician: Vish Moody Medicine, Encounter Date: 11/27/2024 Cabin Supervisor Referral for He patomegaly Add on referral [...] ----- HIGH RISK: >240 >200 Not Available [facility] (Lab) [address] [place], [address], 05/22/2024 11:10:15 05/22/20 24 05/22/2024 LIPID PANEL triglyceride s 137 mg/dL 0-150 NIH ISAMAR NSUS REPOR T RECOM MENDA TION FOR TRIGL YCERI COLLEEN: ADULT CHILD LOW RISK: <150 ----- BODER LINE: 150-1 99 ----- HIGH RISK: >200 ----- Not Available [facility] (Lab) [address] [place], [address], 05/22/2024 11:10:15 05/22/20 24 05/22/2024 LIPID PANEL HDL cholesterol 35 mg/dL 40- low Not Available [facility] (Lab) [address] [place], [address], 05/22/2024 11:10:15 05/22/20 24 05/22/2024 LIPID PANEL [...] WILL NOT BE REPOR SUZAN. Not Available [facility] (Lab) [address] [place], [address], 05/22/2024 11:10:15 05/22/20 24 05/22/2024 COMPR EHENS JOSÉ MIGUEL METAB OLIC PANEL sodium 136 mmol/ L 137-14 5 low Not Available [facility] (Lab) [address] [place], [address], 05/22/2024 11:10:32 05/22/20 24 05/22/2024 COMPR EHENS JOSÉ MIGUEL METAB OLIC PANEL potassium 3.7 mmol/ L 3.5-5. 1 Not Available [facility] (Lab) [address] [place], [address], 05/22/2024 11:10:32 05/22/20 24 05/22/2024 COMPR EHENS JOSÉ MIGUEL METAB OLIC PANEL chloride 101 mmol/ L 98-107 Not Available [facility] (Lab) [address] [place], [address], 05/22/2024 11:10:32 05/22/20 24 05/22/2024 COMPR EHENS JOSÉ MIGUEL METAB OLIC PANEL carbon dioxide 30 mmol/ L 22-30 Not Available [facility] (Lab) [address] [place], [address], 05/22/2024 11:10:32 05/22/20 24 05/22/2024 COMPR EHENS JOSÉ MIGUEL METAB OLIC PANEL anion gap 8.7 mmol/ L 14-22 low Not Available [facility] (Lab) [address] [place], [address], 05/22/2024 11:10:32 05/22/20 24 05/22/2024 COMPR EHENS JOSÉ MIGUEL METAB OLIC PANEL glucose 182 mg/dL 70-99 high Not Available [facility] (Lab) [address] [place], [address], 05/22/2024 11:10:32 05/22/20 24 05/22/2024 COMPR EHENS JOSÉ MIGUEL METAB OLIC PANEL BUN 16 mg/dL 8-19 Not Available [facility] (Lab) [address] [place], [address], 05/22/2024 11:10:32 05/22/20 24 05/22/2024 COMPR EHENS JOSÉ MIGUEL METAB OLIC PANEL creatinine 0.81 mg/dL 0.66-1 .25 Not Available [facility] (Lab) [address] [place], [address], 05/22/2024 11:10:32 05/22/20 24 05/22/2024 COMPR EHENS JOSÉ MIGUEL METAB OLIC PANEL GFR >60 Refer ence Range : Magnet ge GFR Healt hy Adult : >60 [...] or ethni c subgr oups, such as [facility] nics. Outsi de the valid ated [...] is avail able on the [facility] websi te: https :[email or web address] w.lester mayo.o sofia/pr genevaess naboral s/kdo qi/gf r_cal culat or Not Available [facility] (Lab) [address] [place], [address], 05/22/2024 11:10:32 05/22/2005/22/2024 COMPR EHENS JOSÉ MIGUEL METAB OLIC PANEL alkaline phosphatase 103 U/L 38-126 Not Available [facility] (Lab) [address] [place], [address], 05/22/2024 11:10:32 05/22/2005/22/2024 COMPR EHENS JOSÉ MIGUEL METAB OLIC PANEL alanine aminotransfe rase 25 U/L 0-50 Not Available [facility] (Lab) [address] [place], [address], 05/22/2024 11:10:32 05/22/2005/22/2024 COMPR EHENS JOSÉ MIGUEL METAB OLIC PANEL aspartate aminotransfe rase 29 U/L 15-46 Not Available [facility] (Lab) [address] [place], [address], 05/22/2024 11:10:32 05/22/20 24 05/22/2024 COMPR EHENS JOSÉ MIGUEL METAB OLIC PANEL bilirubin, total 1.60 mg/dL 0.20-1 .30 high Not Available [facility] (Lab) [address] [place], [address], 05/22/2024 11:10:32 05/22/20 24 05/22/2024 COMPR EHENS JOSÉ MIGUEL METAB OLIC PANEL calcium 9.5 mg/dL 8.4-10 .2 Not Available [facility] (Lab) [address] [place], [address], 05/22/2024 11:10:32 05/22/2005/22/2024 COMPR EHENS JOSÉ MIGUEL METAB OLIC PANEL total protein 5.8 g/dL 6.3-8. 2 low Not Available [facility] (Lab) [address] [place], [address], 05/22/2024 11:10:32 05/22/20 24 05/22/2024 COMPR EHENS JOSÉ MIGUEL METAB OLIC PANEL albumin 3.7 g/dL 3.0-4. 4 Not Available [facility] (Lab) [address] [place], [address], 05/22/2024 11:10:32 05/22/2005/22/2024 COMPR EHENS JOSÉ MIGUEL METAB OLIC PANEL globulin 2.1 g/dL 2.6-4. 2 low Not Available [facility] (Lab) [address] [place], [address], 05/22/2024 11:10:32 05/22/20 24 05/22/2024 COMPR EHENS JOSÉ MIGUEL METAB OLIC PANEL A/G ratio 1.8 ratio 1.0-2. 0 Not Available [facility] (Lab) [address] [place], [address], 05/22/2024 11:10:32 05/22/2005/22/2024 TSH W/REF FELICE FT4 TSH with reflex free T4 1.150 uIU/m L 0.465- 4.680 Not Available [facility] (Lab) [address] [place], [address], 05/22/2024 11:39:43 05/22/2005/22/2024 CBC/C OMPLE TE BLD COUNT W/DIF F white blood cells 41.6 x10'3 /uL 4.2-10 .8 critical high Not Available [facility] (Lab) [address] [place], [address], 05/22/2024 11:56:19 05/22/2005/22/2024 CBC/C OMPLE TE BLD COUNT W/DIF F red blood cells 4.77 x10'6 /uL 4.10-5 .80 Not Available [facility] (Lab) [address] [place], [address], 05/22/2024 11:56:19 05/22/2005/22/2024 CBC/C OMPLE TE BLD COUNT W/DIF F hemoglobin 15.0 g/dL 13.2-1 7.0 Not Available [facility] (Lab) [address] [place], [address], 05/22/2024 11:56:19 05/22/2005/22/2024 CBC/C OMPLE TE BLD COUNT W/DIF F hematocrit 46.2 % 39.3-5 0.0 Not Available [facility] (Lab) [address] [place], [address], 05/22/2024 11:56:19 05/22/2005/22/2024 CBC/C OMPLE TE BLD COUNT W/DIF F mean red cell volume 96.9 fL 80.0-9 7.0 Not Available [facility] (Lab) [address] [place], [address], 05/22/2024 11:56:19 05/22/2005/22/2024 CBC/C OMPLE TE BLD COUNT W/DIF F mean red cell hemoglobin 31.4 pg 27.0-3 3.0 Not Available [facility] (Lab) [address] [place], [address], 05/22/2024 11:56:19 05/22/2005/22/2024 CBC/C OMPLE TE BLD COUNT W/DIF F mean RBC HGB concentratio n 32.5 g/dL 31.0-3 6.0 Not Available [facility] (Lab) [address] [place], [address], 05/22/2024 11:56:19 05/22/2005/22/2024 CBC/C OMPLE TE BLD COUNT W/DIF F red cell distribution width 13.0 % 11.8-1 5.5 Not Available [facility] (Lab) [address] [place], [address], 05/22/2024 11:56:19 05/22/2005/22/2024 CBC/C OMPLE TE BLD COUNT W/DIF F platelets 169 x10'3 /uL 150-40 0 Not Available [facility] (Lab) [address] [place], [address], 05/22/2024 11:56:19 05/22/2005/22/2024 CBC/C OMPLE TE BLD COUNT W/DIF F mean platelet volume 10.4 fL 9.0-12 .4 Not Available [facility] (Lab) [address] [place], [address], 05/22/2024 11:56:19 05/22/2005/22/2024 CBC/C OMPLE TE BLD COUNT W/DIF F neutrophils 14.6 % 39.0-7 2.0 low Not Available [facility] (Lab) [address] [place], [address], 05/22/2024 11:56:19 05/22/2005/22/2024 CBC/C OMPLE TE BLD COUNT W/DIF F lymphocytes 82.6 % 16.0-4 7.0 high Not Available [facility] (Lab) [address] [place], [address], 05/22/2024 11:56:19 05/22/2005/22/2024 CBC/C OMPLE TE BLD COUNT W/DIF F monocytes 1.9 % 5.0-12 .0 low Not Available [facility] (Lab) [address] [place], [address], 05/22/2024 11:56:19 05/22/2005/22/2024 CBC/C OMPLE TE BLD COUNT W/DIF F eosinophils 0.6 % 1.0-7. 0 low Not Available [facility] (Lab) [address] [place], [address], 05/22/2024 11:56:19 05/22/2005/22/2024 CBC/C OMPLE TE BLD COUNT W/DIF F basophils 0.1 % 0.0-2. 0 Not Available [facility] (Lab) [address] [place], [address], 05/22/2024 11:56:19 05/22/2005/22/2024 CBC/C OMPLE TE BLD COUNT W/DIF F immature granulocytes 0.2 % 0.00-0 .50 Not Available [facility] (Lab) [address] [place], [address], 05/22/2024 11:56:19 05/22/2005/22/2024 CBC/C OMPLE TE BLD COUNT W/DIF F neutrophils, absolute count 6.03 x10'3 /uL 1.5-8. 0 Not Available [facility] (Lab) [address] [place], [address], 05/22/2024 11:56:19 05/22/2005/22/2024 CBC/C OMPLE TE BLD COUNT W/DIF F lymphocytes, absolute count 34.35 x10'3 /uL 1.07-3 .43 high Not Available [facility] (Lab) [address] [place], [address], 05/22/2024 11:56:19 05/22/2005/22/2024 CBC/C OMPLE TE BLD COUNT W/DIF F monocytes, absolute count 0.80 x10'3 /uL 0.29-0 .99 Not Available [facility] (Lab) [address] [place], [address], 05/22/2024 11:56:19 05/22/2005/22/2024 CBC/C OMPLE TE BLD COUNT W/DIF F eosinophils, absolute count 0.26 x10'3 /uL 0.02-0 .53 Not Available [facility] (Lab) [address] [place], [address], 05/22/2024 11:56:19 05/22/2005/22/2024 CBC/C OMPLE TE BLD COUNT W/DIF F basophils, absolute count 0.05 x10'3 /uL 0.01-0 .08 Not Available [facility] (Lab) [address] [place], [address], 05/22/2024 11:56:19 05/22/2005/22/2024 CBC/C OMPLE TE BLD COUNT W/DIF F immature granulocytes ,absolute 0.09 x10'3 /uL 0.00-0 .05 high Not Available [facility] (Lab) [address] [place], [address], 05/22/2024 11:56:19 05/22/20 24 05/22/2024 CBC/C OMPLE TE BLD COUNT W/DIF F nucleated red blood cells 0.0 % -0 Not Available [facility] (Lab) [address] [place], [address], 05/22/2024 11:56:19 05/22/20 24 05/22/2024 CBC/C OMPLE TE BLD COUNT W/DIF F NRBC# 0.00 x10'3 /uL Not Available [facility] (Lab) [address] [place], [address], 05/22/2024 11:56:19 05/22/20 24 05/22/2024 CBC/C OMPLE TE BLD COUNT W/DIF F smudge cells 4+ Not Available [facility] (Lab) [address], [place], [address], 05/22/2024 11:56:19 05/22/20 24 05/22/2024 CBC/C OMPLE TE BLD COUNT W/DIF F normal RBC morphology PRESEN T Not Available [facility] (Lab) [address] [facility], [place], [address], 05/22/2024 11:56:19 03/07/20 24 03/07/2024 US, abdom en, limit ed [facility] [address] [facility] [address], [place] [address] [phone] Patien t Name: SHRUTHI KAY Access ion #: [id number] Sex: M : 1950 0 Dictat [...] at 2023 07:53: 56 AM Page [address] (Imaging) [address] [place], [address], 10/23/2024 12:27:40 03/07/20 24 03/07/2024 US, liver No observ ation record ed. [address] [place], [address], 10/23/2024 12:27:41 08/29/19 25 08/29/2024 XR, hip + pelvi s, unila teral , 2 or 3 view No observ ation record ed. [address] [address], [place], [address], 10/23/2024 12:27:41 08/29/19 25 08/29/2024 XR, lumbo sacra l spine , 2 or 3 view No observ ation record ed. [address] [address], [place], [address], 10/23/2024 12:27:42 08/29/19 25 08/29/2024 XR, lumbo sacra l spine , 2 or 3 view No observ ation record ed. [address] [address], [place], [address], 10/23/2024 12:27:43 08/29/19 25 08/29/2024 XR, hip + pelvi s, unila teral , 2 or 3 view No observ ation record ed. [address] [address], [place], [address], 10/23/2024 12:27:43 12/12/19 XR, knee, 3 view No observ ation record ed. [email or web address] [facility] [address], [place], [address], 12/12/2024 16:06:38 12/26/19 25 12/25/2024 imagi ng/di agnos tic resul t No observ ation record ed. [facility] [address] [facility] [address], [place], [address], 12/25/2024 12:17:37 12/26/19 25 12/25/2024 imagi ng/di agnos tic resul t No observ ation record ed. [facility] [address] [facility] [address], [place], [address], 12/25/2024 12:18:22 Result Notes None recorded. Problems Name Problem SNOMED Code Status Onset Date Resolution Date Notes Provider Name and Address Organization Details Recorded Time Coronary arterioscl erosis 71521027 Active 2022 ROMAN [place], [place] [employer] [facility] [employer] 3 10:58:25 Essential hypertensi on 60761717 Active 2023 Wai wilburn MD [address], [address], [place], [address] , [facility] [employer] [facility] [employer] 4 15:49:01 Hyperlipid emia 14548255 Active 2023 Wai wilburn MD [address], [address], [place], [address] , [facility] [employer] [facility] [employer] 4 15:49:06 Smoker 32350758 Active 2023 Wai wilburn MD [address], [address], [place], [address] , [facility] [employer] [facility] [employer] 4 15:51:30 Sleep apnea 78179986 Active 2023 Paola Kilgore MD [address], [place], [address] , [facility] [employer] 4 08:53:30 Prostate specific antigen above reference range 171377459 Active 2023 Wai wilburn MD [address], [place], [address] , [facility] [employer] 4 10:32:16 Mediastina l lymphadeno odalys 53621769 Active 2023 Wai wilburn MD [address], [address], [place], [address] , [facility] [employer] 4 10:38:54 Total bilirubin above reference range 9181809318939 08 Active 2023 Niya Busby MA null, [facility] [employer] 4 17:19:38 Abdominal aortic aneurysm 203653110 Active 2023 ROMAN Claudio null, [facility] [employer] 4 16:08:02 Hyperbilir ubinemia 04389880 Active 2023 Wai wilburn MD [address], [address], [place], [address] , [facility] [employer] 4 16:54:33 Hepatomega ly 25117292 Active 2023 Wai wilburn MD [address], [address], [place], [address] , [facility] 4 16:55:03 Pain of left hip joint [id number] 00 Active 2024 Wai wilburn MD [address], [address], [place], [address] , [facility] 5 11:56:29 Pain of bilateral knee joints [id number] 04 Active 2024 Wai wilburn MD [address], [address], [place], [address] , [facility] 5 10:56:07 Bilateral osteoarthr itis of knees [id number] 07 Active 2024 ROMAN Samson null, [facility] 5 08:41:02 Cataract 710299256 Active Not Available [facility] 3 07:47:52 Right carotid artery stenosis [id number] 00 Active 2022 Not Available [facility] 3 07:47:52 Osteoarthr itis 950108850 Active Not Available [facility] 3 07:47:52 Peripheral vascular disease 933664133 Active Not Available [facility] 3 07:47:52 Ventral incisional hernia 010883551 Active Not Available [facility] 3 07:47:52 Obstructiv e sleep apnea syndrome 12497334 Active Not Available [facility] 3 07:47:52 COVID-19 891970874 Active 2021 Not Available [facility] 3 07:47:52 Chronic lymphoid leukemia, disease 50937761 Active 2021 Not Available [facility] 3 07:47:52 Notes:Medical History: Right [...] extraction with IOL 2014 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 If you do not have internet access, please call to notify the sender and confirm that the information will be destroyed. Thank you for your attention and cooperation. [ID:[id number]] , Date: 12/12/2024RE: Alexa Steward MD, I [...] Sincerely, Electronically Signed by: SABINA HARRISON NP Assessment/Siil22-xiyl-ky d patient presents today for bilateral knee [...] knees have severe degenerative osteoarthritic changes with [id number]-[id number] medially and patellofemoral osteophyte formation. Clips in [...] this plan. 1. Pain of bilateral knee [id number]: Pain in unspecified knee XR, KNEE, 3 VIEW Side: BILATERAL VISCOSUPPLEMENTATION TREATMENT* - Note to Provider: Teja knees XR, KNEE, 3 VIEW Side: BILATERAL Return to Office Tracy Gruber MD for New Patient 15 at [facility] General Surgery on 01/10/2025 at 01:30 PM Wai Negrete MD for Follow Up 15 at [facility] Primary Care [place] on 04/04/2025 at 09:15 AM Not Available [facility] 12/12/2024 16:18:52 Procedures Surgical History Date Name Laterality Status Provider Name and Address Organization Details Recorded Time 02/07/20 Medicare Wellness CPT Code, subsequent completed Thiago Soto LPN [employer] [facility] 02/07/2024 13:30:14 02/07/20 Advanced Care Planning completed Thiago Soto LPN [employer] [facility] 02/07/2024 13:35:32 09/18/19 15 Rpr ventral marcy init reduc completed Not Available [facility] 10/14/2022 04:42:56 08/25/19 13 Colonoscopy completed Not Available [facility] 10/14/2022 04:42:56 Colon Surgery completed Not Available [facility] 10/14/2022 04:42:56 Carotid Endarterectomy completed Not Available [facility] 10/14/2022 04:42:56 Hernia Repair completed Not Available [facility] 10/14/2022 04:42:56 femoral artery bypass completed Not Available [facility] 10/14/2022 04:42:56 Imaging Results Imaging Date Name Status LastModified by [facility] Details LastModified Time 03/07/2024 US, abdomen, limited completed [address] (Imaging) [address] [place], [address], 10/23/2024 12:27:40 03/07/2024 US, liver completed [address] [place], [address], 10/23/2024 12:27:41 08/29/2024 XR, hip + pelvis, unilateral, 2 or 3 view completed [address] [place] [address], [address], 10/23/2024 12:27:41 08/29/2024 XR, lumbosacral spine, 2 or 3 view completed [address] [address], [place], [address], 10/23/2024 12:27:42 08/29/2024 XR, lumbosacral spine, 2 or 3 view completed [address] [address], [place], [address], 10/23/2024 12:27:43 08/29/2024 XR, hip + pelvis, unilateral, 2 or 3 view completed [address] [address], [place], [address], 10/23/2024 12:27:43 12/11/2024 XR, knee, 3 view completed [email or web address] [facility] [address], [place], [address], 12/12/2024 16:06:38 12/25/2024 imaging/diagnos tic result active [address], [address], 12/25/2024 12:17:37 12/25/2024 imaging/diagnos tic result active [address], [address], 12/25/2024 12:18:22 Procedure Notes None recorded. Medical Equipment None [...] Updated DateTime 4 180.34 cm 31.8 kg/m2 931933. 06 g 98.2 [degF] 84 /min 20 /min 92 % 92 % 7 102 mm[Hg] 60 mm[Hg] Thiago Soto LPN [employer] 4 11:48:24 Date Recorded Body height Body mass index (BMI) Body weight Body temperature Heart rate Systolic blood pressure Diastolic blood pressure Provider Name and Address Organization Details Last Updated DateTime 4 180.34 cm 33.5 kg/m2 855148. 17 g 97.3 [degF] 84 /min 144 mm[Hg] 70 mm[Hg] ROMAN Claudio [employer] 4 09:51:07 Date Recorded Body height Body mass index (BMI) Body weight Body temperature Heart rate Systolic blood pressure Diastolic blood pressure Provider Name and Address Organization Details Last Updated DateTime 5 180.34 cm 33.8 kg/m2 883172. 35 g 97.6 [degF] 84 /min 122 mm[Hg] 60 mm[Hg] ROMAN Claudio [employer] 5 11:23:47 Date Recorded Body height Body mass index (BMI) Body weight Body temperature Heart rate Oxygen saturation Oxygen saturation in Arterial blood by Pulse oximetry Pain severity - 0-10 verbal numeric rating [Score] - Reported Systolic blood pressure Diastolic blood pressure Provider Name and Address Organization Details Last Updated DateTime 180.34 cm 32.1 kg/m2 229214. 25 g 98.5 [degF] 90 /min 90 % 90 % 8 130 mm[Hg] 60 mm[Hg] Jessica Glasgow MA [place] [employer] [facility] 5 09:58:10 Date Recorded Body height Body mass index (BMI) Body weight Pain severity - 0-10 verbal numeric rating [Score] - Reported Provider Name and Address Organization Details Last Updated DateTime 12/11/2024 180.34 cm 32.1 kg/m2 391984.25 g 8 Zenaida Casillas Yoselin [place] [employer] [facility] 12/11/2024 10:13:48 Social History Question Answer Notes LastModified by Organization Details LastModified Time Tobacco Smoking Status Former Smoker DARLENE Sutherland, [employer] [facility] 02/07/2024 13:31:47 Do You Have An Advance Directive? No Info Provided MIGRATION.[id number] Information not available 10/14/2022 Do You Wear A Helmet When Biking? No Does Not Bike [email or web address] Information not available 02/07/2024 Are You Blind Or Do You Have Difficulty Seeing? No MIGRATION.030 322647 Information not available 10/14/2022 Is Blood Transfusion Acceptable In An Emergency? Yes [email or web address] Information not available 02/07/2024 What Is Your Level Of Caffeine Consumption? Occasional MIGRATION.030 337583 Information not available 10/14/2022 How Much Tobacco Do You Chew? None MIGRATION.030 653562 Information not available 10/14/2022 In The 14 Days Before Symptom Onset, Have You Had Close Contact With A Laboratory-conf irmed COVID-19 While That Case Was Ill? No MIGRATION.030 687601 Information not available 10/14/2022 In The 14 Days Before Symptom Onset, Have You Had Close Contact With A Person Who Is Under Investigation For COVID-19 While That Person Was Ill? No MIGRATION.030 340325 Information not available 10/14/2022 Are You Deaf Or Do You Have Serious Difficulty Hearing? Yes Loss Of Hearing Both Ears [email or web address] Information not available 02/07/2024 What Type Of Diet Are You Following? REGULAR MIGRATION.22990921 Information not available 10/14/2022 Which Illicit Or Recreational Drugs Have You Used? None MIGRATION.22990921 Information not available 10/14/2022 What Is The Highest Grade Or Level Of School You Have Completed Or The Highest Degree You Have Received? [id number] MIGRATION.22990921 Information not available 10/14/2022 Do You Have An Electrostatic Air Filter? No Information not available 11/22/2023 How Many Days Of Moderate To Strenuous Exercise, Like A Brisk Walk, Did You Do In The Last 7 Days? 4 [email or web address] Information not available 02/07/2024 On Those Days That You Engage In Moderate To Strenuous Exercise, How Many Minutes, On Average, Do You Exercise? 29 [email or web address] Information not available 02/07/2024 Have There Been Any Changes To Your Family Or Social Situation? No MIGRATION.300026 Information not available 10/14/2022 What Is The Fluoride Status Of Your Home? Unknown MIGRATION.22990921 Information not available 10/14/2022 When Did You Quit Smoking? 1-5yearssincelastc igarette [email or web address] Information not available 02/07/2024 Are There Any Guns Present In Your Home? Yes [email or web address] Information not available 02/07/2024 Do You Have A Humidifier? No Information not available 11/22/2023 Do You Use Insect Repellent Routinely? No MIGRATION.300026 Information not available 10/14/2022 Where Do You Live? SingleLevelHouse MIGRATION.22990921 Information not available 10/14/2022 Presence Of Domestic Violence No [email or web address] Information not available 02/07/2024 Guns Present In The Home? Yes Information not available 02/07/2024 Are You Able To Care For Yourself? Yes [email or web address] Information not available 02/07/2024 Are You Blind Or Do Yo Have Difficulty Seeing? No [email or web address] Information not available 02/07/2024 Are You Deaf Or Do You Have Serious Difficulty Hearing? Yes SAVOONGA [email or web address] Information not available 02/07/2024 General Stress Level? Low [email or web address] Information not available 02/07/2024 Live Alone Of With Others? With Others [email or web address] Information not available 02/07/2024 Do You Have A Medical Power Of Planned Giving Officer? No MIGRATION.0301 926249 Information not available 10/14/2022 Do You Have Moisture Problems In Your Home? No Information not available 11/22/2023 What Was The Date Of Your Most Recent Tobacco Screening? 11/27/2024 Information not available 11/27/2024 Have You Ever Been Counseled For Unhealthy Alcohol Use? No MIGRATION.0301 586335 Information not available 10/14/2022 Do You Have Any Pets? Yes Dog [email or web address] Information not available 02/07/2024 What Is Your Relationship Status? MIGRATION.0301 233612 Information not available 10/14/2022 Do You Use Your Seat Belt Or Car Seat Routinely? Yes MIGRATION.0301 888033 Information not available 10/14/2022 Do You Have Smoke And Carbon Monoxide Detectors In Your Home? Yes MIGRATION.0301 130726 Information not available 10/14/2022 At What Age Did You Start Smoking Tobacco? 20 MIGRATION.0301 297588 Information not available 10/14/2022 Are You Passively Exposed To Smoke? No Information not available 02/07/2024 Are There Any Smokers In Your House? No [email or web address] Information not available 02/07/2024 How Much Tobacco Do You Smoke? No [email or web address] Information not available 02/07/2024 What Types Of Sporting Activities Do You Participate In? None MIGRATION.0301 644621 Information not available 10/14/2022 Do You Use Sunscreen Routinely? No MIGRATION.0301 246676 Information not available 10/14/2022 Has Tobacco Cessation Counseling Been Provided? No [email or web address] Information not available 02/07/2024 How Many Years Have You Smoked Tobacco? 43 [email or web address] Information not available 02/07/2024 Have You Recently Traveled Abroad? No MIGRATION.0301 676973 Information not available 10/14/2022 Do You Have Difficulty Walking Or Climbing Stairs? Yes MIGRATION.0301 864807 Information not available 10/14/2022 Do You Have Any Dietary Restrictions? No MIGRATION.0301 146958 Information not available 10/14/2022 Sex: Male Functional Status Question Answer Note LastModified by Organizat ion Details LastModified Time Do you or have you ever used smokeless tobacco? Never used smokeless tobacco MIGRATION.89879 96136 Information not available 10/14/2022 Are you currently employed? No [email or web address] Information not available 02/07/2024 Have you been exposed to chemicals or toxins? Not that aware of Information not available 11/22/2023 Do you have transportation difficulties? No MIGRATION.07920 46312 Information not available 10/14/2022 Are you able to care for yourself? Yes MIGRATION.87902 72880 Information not available 10/14/2022 Do you have difficulty dressing or bathing? No MIGRATION.54814 57819 Information not available 10/14/2022 Do you or have you ever used e-cigarettes or vape? Never used electronic cigarettes MIGRATION.32791 87755 Information not available 10/14/2022 What is your exercise level? Occasional walks dog MIGRATION.38502 69343 Information not available 10/14/2022 Do you use any illicit or recreational drugs? No MIGRATION.55339 77566 Information not available 10/14/2022 Do you or have you ever used any other forms of tobacco or nicotine? No MIGRATION.92359 81859 Information not available 10/14/2022 What is your level of alcohol consumption? None MIGRATION.97105 91251 Information not available 10/14/2022 Are you able to walk? YESWOREST MIGRATION.18257 37072 Information not available 10/14/2022 Do you have difficulty doing errands alone? No MIGRATION.01324 07042 Information not available 10/14/2022 What is your occupation? RETIRED MIGRATION.21589 84049 Information not available 10/14/2022 Mental Status Question Answer Note LastModified by Organizat ion Details LastModified Time Do you feel stressed (tense, restless, nervous, or anxious, or unable to sleep at night)? [id number] MIGRATION.82328628 26 Information not available 10/14/2022 Do you have difficulty concentrating, remembering or making decisions? No MIGRATION.30536717 26 Information not available 10/14/2022 Family History Relationship Description Onset Age of this Age Resolved Age Notes LastModified by Organization Details LastModified Time Brother Essential hypertension MIGRATION.520 [id number] Not available 10/14/2022 04:43:06 Father Myocardial infarction deceas ed MIGRATION.194 [id number] Not available 10/14/2022 04:43:06 Medical History Condition [...] HAVE YOU BEEN HOSPITALIZED OR SEEN IN [facility] IN THE PAST YEAR ? N ATHEROSCLEROSIS [...] dose 1 completed Lois Hawthorne RMYoselin vanegas, [facility] 08/02/2024 09:22:40 COVID-19, mRNA, LNP-S, PF, 100 mcg/0.5mL dose or 50 mcg/0.25mL dose 1 completed Lois Hawthorne RMA null, [facility] 08/02/2024 09:22:40 Influenza, high-dose, quadrivalent, PF 0 completed Not Available [facility] 04/16/2023 07:47:53 COVID-19, mRNA, LNP-S, PF, 100 mcg/0.5mL dose or 50 mcg/0.25mL dose 1 completed Lois Hawthorne RMA null, [facility] 08/02/2024 09:22:40 Influenza, high-dose, trivalent, PF 9 completed Not Available [facility] 04/16/2023 07:47:53 pneumococcal polysaccharide PPV23 8 completed Not Available [facility] 04/16/2023 07:47:53 Influenza, high-dose, trivalent, PF 8 completed Not Available [facility] 04/16/2023 07:47:53 Influenza, split virus, quadrivalent, PF 5 completed Not Available [facility] 04/16/2023 07:47:53 Pneumococcal conjugate PCV 13 4 completed Lois Hawthorne RMA romina, [facility] 08/02/2024 09:22:40 Influenza, split virus, trivalent, PF 4 completed Lois Hawthorne RMA null, [facility] 08/02/2024 09:22:40 Influenza, high-dose, quadrivalent, PF 3 completed Geo Kuo MD [address] [place] [address], [address], [facility] 06/07/2023 22:43:16 Influenza, high-dose, trivalent, PF 4 completed Lois Hawthorne RMA null, [facility] 05/31/2024 10:56:43 Past Encounters Encounter ID Performer Location Encounter Start Date Encounter Closed Date Diagnosis/Indication Diagnosis SNOMED-CT Code Diagnosis ICD10 Code Diagnosis Note [id number] Geo Kuo MD [facility] Internal Med [facility] [address] [place] [address] [address] 01/24/2021 00:00:00 01/26/2021 21:53:40 [id number] Geo Kuo MD [facility] Internal Med [facility] [address] [place] [address] [address] 05/16/2021 00:00:00 05/17/2021 12:31:56 [id number] Geo Kuo MD [facility] Internal Med [facility] [address] [place] [address] [address] 11/12/2021 00:00:00 11/12/2021 21:11:22 [id number] Geo Kuo MD [facility] Internal Med [facility] [address] [place] [address] [address] 06/15/2022 00:00:00 07/26/2022 16:11:43 [id number] Geo Kuo MD [facility] Internal Med [facility] [address] [place] [address] [address] 12/02/2022 15:53:12 12/02/2022 17:14:53 Bronchitis 18737301 J40 [id number] Geo Kuo MD [facility] Internal Med [facility] [address] [place] [address] [address] 02/08/2023 11:14:16 02/08/2023 12:15:24 Benign essential hypertension 4928697 I10 Carotid ar anurag stenosis 20992862 I65.29 Chronic ly mphoid leukemia, disease 67368651 C91.90 Osteoarthritis 100143003 M19.90 [id number] Geo Kuo MD [facility] Internal Med [facility] [address] [place] [address] [address] 06/07/2023 09:44:38 06/07/2023 10:59:56 Administration of influenza vaccine 75510829 Z23 Peripheral vascular disease 175730375 I73.9 Coronary arteriosclerosis 75577207 I25.10 Benign ess ential hypertension 2949440 I10 Chronic ly mphoid leukemia, disease 41675266 C91.90 [id number] MD IDRIS Baum[facility] [place] [address] [facility] [place] [address] 10/06/2023 15:39:29 10/06/2023 16:43:54 Screening - NAD 819225319 Z13.9 C-scope: Get this if not done Get yearly flu shotGet Tdap if not doneGet shingrix vaccineGet RSV vaccine RTC in 3 months, do labs, ER if worse, he and his verbalized his understand ing of the above Essential hypertension 67843655 I10 On ASA 81mg dailyOn amlodipine 10mg dailyOn HCTZ 25mg dailyGet labs Hyperlipidemia 01917897 E78.5 On ASAOn atorvastat in 80mg dailyGet labs Screening for malignant neoplasm of prostate 372143958 Z12.5 Smoker 72850785 F17.200 Advised to quitGet LDCTAs per oncology note US AAA 4.7 Obstructiv e sleep apnea syndrome 17712919 G47.33 On CPAPNeeds to see Dr Kilgore Chronic ly mphoid leukemia, disease 64819568 C91.10 MRI brain 06/01/2023 : Dr Astudillo for headaches Dr Astudillo 09/08/2023 , f/u 6 months Peripheral vascular disease 402826594 I73.[address] 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 Screening for malignant neoplasm of colon 637072664 Z12.11 [id number] MD IDRIS Jenkins[facility] [place] [address] [facility] [address] [place] [address] 11/22/2023 08:23:05 11/23/2023 09:06:20 Sleep apnea 20971723 G47.30 G47.33 G47.61 G47.36 Smoker 95971749 F17.218 F17.219 Z87.984 [id number] MD IDRIS [facility]um[facility] [place] [address] [place] [address] 02/07/2024 09:55:28 02/07/2024 11:04:10 Screening - NAD 016324834 Z13.9 C-scope: Get this if not done Get yearly flu shotGet Tdap if not doneGet shingrix vaccineGet RSV vaccine RTC in 2 months, do labs, ER if worse, he and his verbalized his understand ing of the above Essential hypertension 80155467 I10 On ASA 81mg dailyOn amlodipine 10mg dailyOn HCTZ 25mg dailyGet labs Hyperlipidemia 97456826 E78.5 On ASAOn atorvastat in 80mg dailyGet labs Smoker 77708166 F17.200 Advised to quitLDCT 10/21/2023 : Emphysema, CAD, LANAs per oncology note US AAA 4.7 Obstructiv e sleep apnea syndrome 48566919 G47.33 On CPAPNeeds to see Dr Kilgore Chronic ly mphoid leukemia, disease 21005898 C91.10 MRI brain 06/01/2023 : Dr Astudillo for headaches Dr Astudillo 09/08/2023 , f/u 6 monthsWill get another referral to Dr Eric Peripheral vascular disease 409776501 I73.[address] 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 11/30/2023 : ECHO 55%, US Carotid: Dr Banegas, occlusion, US AAA: 4.4 cm OV 02/07/2024 : Will see Dr Fragoso in [facility] as per his history Screening for malignant neoplasm of colon 626266717 Z12.11 Prostate s pecific antigen above reference range 611320705 R97.20 High normal PSAGet a referral to urology Mediastina l lymphadenopathy 06919012 R59.0 Needs to see oncology Adult heal th examination 789348640 Z00.00 Screening for disorder 029934770 Z13.9 [id number] Wai wilburn MD [facility] Internal Med [place] [address] [place] [address] 03/20/2024 11:28:06 03/20/2024 12:39:19 Screening - NAD 969146556 Z13.9 C-scope: Get this if not done Get yearly flu shotGet Tdap if not doneGet shingrix vaccineGet RSV vaccine RTC in 2 months, do labs, ER if worse, he verbalized his understand ing of the above Essential hypertension 85979346 I10 On ASA 81mg dailyOn amlodipine 10mg dailyOn HCTZ 25mg dailyGet labs Hyperlipidemia 98906074 E78.5 On ASAOn atorvastat in 80mg dailyGet labs Smoker 51393799 F17.200 Advised to quit!LDCT 10/21/2023 : Emphysema, CAD, LANAs per oncology note US AAA 4.7 Obstructiv e sleep apnea syndrome 13233153 G47.33 On CPAPNeeds to see Dr Magui Nixon ly mphoid leukemia, disease 71766236 C91.10 MRI brain 06/01/2023 : Dr Astudillo for headaches Dr Astudillo 09/08/2023 , f/u 6 monthsWill get another referral to Dr Eric Peripheral vascular disease 372975755 I73.[address] 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 11/30/2023 : ECHO 55%, US Carotid: Dr Banegas, occlusion, US AAA: 4.4 cm OV 02/07/2024 : Will see Dr Fragoso in [facility] as per his historyOV 03/20/2024 : States that he will see Dr Banegas Screening for malignant neoplasm of colon 734127429 Z12.11 Prostate s pecific antigen above reference range 320977240 R97.20 High normal PSAGet a referral to urology Mediastina l lymphadenopathy 75777968 R59.0 Needs to see oncology Hyperbilirubinemia 54258 006 E80.6 US Liver 03/07/2024 : Hepatomega ly Hepatomegaly 81692529 R1 6.0 US liver 03/07/2024 : Hepatomega ly, get a referral to GI [id number] Wai wilburn MD [facility] [place] [address] [place] [address] 05/31/2024 09:41:29 05/31/2024 10:18:41 Screening - NAD 925175140 Z13.9 C-scope: Get this if not done Get yearly flu shotGet Tdap if not doneGet shingrix vaccineGet RSV vaccine RTC in 2 months, do labs, ER if worse, he verbalized his understand ing of the above Essential hypertension 96274234 I10 On ASA 81mg dailyOn amlodipine 10mg dailyOn HCTZ 25mg dailyGet labs Hyperlipidemia 09851778 E78.5 On ASAOn atorvastat in 80mg dailyGet labs Smoker 52670826 F17.200 Advised to quit!LDCT 10/21/2023 : Emphysema, CAD, LANAs per oncology note US AAA 4.7 Obstructiv e sleep apnea syndrome 70387995 G47.33 On CPAPNeeds to see Dr Magui Nixon ly mphoid leukemia, disease 40636736 C91.10 MRI brain 06/01/2023 : Dr Astudillo for headaches Dr Astudillo 09/08/2023 , f/u 6 monthsDr Astudillo 03/08/2024 Peripheral vascular disease 294103329 I73.[address] 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 11/30/2023 : ECHO 55%, US Carotid: Dr Banegas, occlusion, US AAA: 4.4 cm OV 02/07/2024 : Will see [facility]oso in [facility] as per his historyOV 03/20/2024 : States that he will see Dr Tavares 05/31/2024 : See [facility] referral again provided Screening for malignant neoplasm of colon 229781050 Z12.11 Prostate s pecific antigen above reference range 152054506 R97.20 High normal PSAToday 05/31/2024 , states that he did see Dr Khalil Mediastinyoselin l lymphadenopathy 02758275 R59.0 Needs to see oncology Hyperbilirubinemia 75753 006 E80.6 US Liver 03/07/2024 : Hepatomega ly Hepatomegaly 10226725 R1 6.0 US liver 03/07/2024 : Hepatomega ly, get a referral to GI Abdominal aortic aneurysm 592146984 I71.40 OV 05/31/2024 :Has seen Dr Fragoso as per Dr Astudillo's notes, states that he does have a f/u apt with Dr Fragoso again, he also has to see Dr Banegas [facility] Administra tion of influenza vaccine 39212591 Z23 [id number] Wai wilburn MD [facility] [address] [facility] [address] [place] [address] 08/28/2024 10:54:16 08/28/2024 12:04:08 Screening - NAD 835618591 Z13.9 C-scope: Get this if not done, referred again 08/28/2024 Get yearly flu shotGet Tdap if not doneGet shingrix vaccineGet RSV vaccineUTD on PCV #13 and #23 RTC in 1 months, do labs, ER if worse, he verbalized his understand ing of the above Essential hypertension 95614318 I10 On ASA 81mg dailyOn amlodipine 10mg dailyOn HCTZ 25mg dailyGet labs Hyperlipidemia 23116901 E78.5 On ASAOn atorvastat in 80mg dailyGet labs Smoker 91452382 F17.200 Advised to quit!LDCT 10/21/2023 : Emphysema, CAD, LANAs per oncology note US AAA 4.7 Obstructiv e sleep apnea syndrome 74995961 G47.33 On CPAPNeeds to see Dr Magui Nixon ly mphoid leukemia, disease 53670983 C91.10 MRI brain 06/01/2023 : Dr Astudillo for headaches Dr Astudillo 09/08/2023 , f/u 6 monthsDr Astudillo 03/08/2024 Peripheral vascular disease 106781381 I73.[address] 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 11/30/2023 : ECHO 55%, US Carotid: Dr Banegas, occlusion, US AAA: 4.4 cm OV 02/07/2024 : Will see Dr [facility] in [facility] as per his historyOV 03/20/2024 : States that he will see Dr Tavares 05/31/2024 : See [facility] referral again provided Screening for malignant neoplasm of colon 549552420 Z12.11 Prostate s pecific antigen above reference range 452960238 R97.20 Get a referral to urology Mediastina l lymphadenopathy 81019719 R59.0 Needs to see oncology Hyperbilirubinemia 54541 006 E80.6 US Liver 03/07/2024 : Hepatomega ly Hepatomegaly 41842249 R1 6.0 US liver 03/07/2024 : Hepatomega ly, get a referral to GI Abdominal aortic aneurysm [id number] I71.40 OV 05/31/2024 :Has seen Dr Fragoso as per Dr Astudillo's notes, states that he does have a f/u apt with Dr Fragoso again, he also has to see Dr Banegas [facility] Pain of le ft hip joint [id number] 91698 M25.552 Get xrays Addnedum: 08/30/2024 : Xrays noted, did get a call from radiology regarding aneurysm, case sent to triage [id number] Wai wilburn MD [facility] Primary Care [facility] [address] [place] [address] 11/27/2024 09:37:57 11/27/2024 11:01:19 Screening - NAD 957107432 Z13.9 C-scope: Get this if not done, referred again 08/28/2024 Get yearly flu shotGet Tdap if not doneGet shingrix vaccineGet RSV vaccineUTD on PCV #13 and #23 RTC in 3 months, do labs, ER if worse, he verbalized his understand ing of the above Essential hypertension 32701228 I10 On ASA 81mg dailyOn amlodipine 10mg dailyOn HCTZ 25mg dailyGet labs Hyperlipidemia 59637304 E78.5 On ASAOn atorvastat in 80mg dailyGet labs Smoker 42578429 F17.200 Advised to quit!LDCT 10/21/2023 : Emphysema, CAD, LANAs per oncology note US AAA 4.7 Obstructiv e sleep apnea syndrome 29157763 G47.[address] Dr Magui Nixon ly mphoid leukemia, disease 52576060 C91.10 MRI brain 06/01/2023 : Dr Astudillo for headaches Dr Astudillo 09/08/2023 , f/u 6 monthsDr Astudillo 03/08/2024 Peripheral vascular disease 116748321 I73.[address] 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 11/30/2023 : ECHO 55%, US Carotid: Dr Banegas, occlusion, US AAA: 4.4 cm OV 02/07/2024 : Will see Dr Fragoso in [facility] as per his historyOV 03/20/2024 : States that he will see Dr Tavares 05/31/2024 : See [facility] referral again provided Screening for malignant neoplasm of colon 142908898 Z12.11 Prostate s pecific antigen above reference range 352940322 R97.20 Get a referral to urology Mediastina l lymphadenopathy 10341257 R59.0 Needs to see oncology Hyperbilirubinemia 32710 006 E80.6 US Liver 03/07/2024 : Hepatomega ly Hepatomegaly 49460984 R1 6.0 US liver 03/07/2024 : Hepatomega ly, get a referral to GI Abdominal aortic aneurysm 640927024 I71.40 OV 05/31/2024 :Has seen Dr Fragoso as per Dr Astudillo's notes, states that he does have a f/u apt with Dr Fragoso again, he also has to see Dr Banegas [facility] Pain of le ft hip joint 2601681731 37046 M25.552 Get xrays Addnedum: 08/30/2024 : Xrays noted, did get a call from radiology regarding aneurysm, case sent to triage Pain of bi lateral knee joints 7169977390 18398 M25.561 M25.255 [id number] Young Ferguson MD [facility] [address] [address] 12/11/2024 09:43:54 12/11/2024 11:08:38 Pain of bilateral knee joints 8927346730 63239 M25.569 Health Concerns Section Related Observation LastModified by Organization Detai ls LastModified Time None Recorded Concern Status LastModified by Organization Details LastModified Time None Recorded Advance Directives Directive N: info provided Payers Encounter Date Sequence Insurance Name Policy Number Policy Howell Covered Member ID Howell Member ID Guarantor Name 03/20/2024 1 [facility] (MEDICARE REPLACEMENT/A DVANTAGE - HMO) [id number] Geo Kay [id number] Geo Kay 05/31/2024 1 [facility] (MEDICARE REPLACEMENT/A DVANTAGE - HMO) [id number] Geo Kay [id number] Geo Kay 08/28/2024 1 [facility] (MEDICARE REPLACEMENT/A DVANTAGE - HMO) [id number] Geo Kay [id number] Geo Kay 11/27/2024 1 [facility] (MEDICARE REPLACEMENT/A DVANTAGE - HMO) [id number] Geo Kay [id number] Geo Kay 12/11/2024 1 [facility] (MEDICARE REPLACEMENT/A DVANTAGE - HMO) [id number] Geo Kay [id number] Geo Kay Notes Date Note Type Note [...] 'eating everything' Wai Negrete MD [address], [address], [place], [address], [employer] [facility] 03/20/2024 12:48:49 05/31/2024 text/html OV 10/06/2023:He re [...] well, he has seen Dr Astudillo the event planning manager Wai Negrete MD [address], [address], [place], [address], [employer] 05/31/2024 10:54:20 08/28/2024 text/html OV 10/06/2023:He re [...] well, he has seen Dr Astudillo the event planning manager OV 08/28/2024: Here for his f/u apt, he is doing well today,he did sustain a fall and hit his back, mild LBP now, no N/T or weakness noted, would like to get xrays Wai Negrete MD [address], [address], [place], [address], [employer] [facility] [employer] 09/11/2024 09:20:59 11/27/2024 text/html OV 10/06/2023:He [...] well, he has seen Dr Astudillo the event planning manager OV 08/28/2024: Here for his f/u apt, [...] get the 'gel shots' Wai Negrete MD [address], [address], [place], [address], [employer] [facility] [employer] 11/27/2024 11:48:52
--- OUTSIDE RECORDS SUMMARY | 2024-12-29 10:27 | XMS_ITS | Encounter Summary ---
Author Organization [employer] [facility] Address 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
--- OUTSIDE RECORDS SUMMARY | 2024-12-29 12:13 | XMS_ITS | Encounter Summary ---
Author Organization [facility] Address 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 Gender Identity Not on file Sexual Orientation [...] and non- Americans is available on the [facility] Intranet at: [email or web address] Select: Lab Policies and Procedures Select: Reference Ranges - GFR 02/18/2007 12:4 0 PM CDT Lorenzo Pepper MD CHEMISTRY ORDERABLES Edited Performing Organization Address City/[facility] de Phone Number INTERFACE SYSTEM Refer to clinic/hospital department * HEMOGLOBIN AND HEMATOCRIT (02/18/2007 12:40 PM CDT) HEMOGLOBIN 15.8 13.6 - 16.5 g/dL INTERFACE SYSTEM HEMATOCRIT 45.3 40.0 - 48.0 % INTERFACE SYSTEM 02/18/2007 12:4 0 PM CDT Lorenzo Pepper MD HEMATOLOGY ORDERABLES Edited Performing Organization Address [facility] [place] Phone Number INTERFACE SYSTEM Refer to clinic/hospital department documented in this encounter Visit Diagnoses Diagnosis Displacement of lumbar intervertebral disc without myelopathy- Primary documented in this encounter Care Teams Spinning Frame Changer Relationship Specialty Start Date End Date Nba Negrete MD PCP - General Internal Medicine 02/11/24 documented as of this encounter
--- OUTSIDE RECORDS SUMMARY | 2024-12-29 12:13 | XMS_ITS | Clinical Summary ---
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
--- OUTSIDE RECORDS SUMMARY | 2024-12-29 12:13 | XMS_ITS | Encounter Summary ---
Author Organization [employer] Address [address] [place] [address] Care Team Providers Care Quality Compliance Coordinator Name Role Phone Nba Negrete MD Primary Care Provider Encounter Details Date Type Department Care Team (Late st Contact Info) Description 02/18/2007 Outpatient Historical [facility] Support Serv. (Adt Cardiology-[facility]) [address] 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
--- OUTSIDE RECORDS SUMMARY | 2024-12-29 12:14 | XMS_ITS | Encounter Summary ---
Author Organization [employer] [facility] Address 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
--- OUTSIDE RECORDS SUMMARY | 2024-12-29 12:14 | XMS_ITS | CONTINUITY OF CARE DOCUMENT ---
Author Name majo kasper Address Unknown Organization [facility] Address [address] [place] [address] Phone [phone] Care Team Providers Care Non Destructive Testing Inspector Name Role Phone Makenzie ABRAHAM, Trini Brown Unavailable [phone] LLOYD LONG MD Unavailable [phone] WAI ROSE MD Unavailable [phone] PROBLEMS Condition Status Date Provider Notes Cardiology examination active Sherlyn Ventim iglia SYSTEMS PLANNER Peripheral vascular disease (PVD) active Am karis Ventimiglia [employer] PL[employer]NER Hyperlipidemia active Sherlyn Ventimiglia FN P Hypertension active Sherlyn Ventimiglia SYSTEMS PLANNER Body mass index (BMI) 30.0-30.9, adult active Sherlyn Ventimiglia SYSTEMS PLANNER CVA active Sherlyn Ventimiglia SYSTEMS PLANNER Nicotine dependence active Sherlyn Ventimigl ia SYSTEMS PLANNER CLL active Sherlyn Ventimiglia SYSTEMS PLANNER 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 ENCOUNTERS Date Type Provider Location Encounter Diag nosis - In-person encounter Office Visit Trini Banegas MD [place] [facility] Pulmonary artery anomaly - In-person encounter Office Visit Trini Banegas MD [place] [facility] Cardiology examinationPeripheral vascular disease (PVD)HyperlipidemiaHypertens ionBody [...] Mass Index (Ratio) 30.68 kg/m2 Radu castillo [place] blood pressure, diastolic 80 mm[Hg] Li [employer] [...] history of marijuana use no Sherlyn Ventimiglia [facility] drug use no Sherlyn Ventimig ayush [facility] alcohol use no Sherlyn Ventimig ayush [facility] smoking history, tot al pack/day 0.5 Sherlyn Ventimiglia [facility] cigarette use yes Sherlyn Ventimi glia [facility] smoking status Current every da y smoker Sherlyn Ventimiglia [facility] FAMILY HISTORY Family Member Condition Father CAD male <55 INSURANCE PROVIDERS Payer name Policy type / Coverage type [place] red libertarian ID AARP MEDICARE ADVANTAGE HMO-POS HMO [id number] ADVANCE DIRECTIVES Name Date DISCUSSED - NO [...] arge.. Based on CT done 10/21/23 at [facility] Trini Banegas MD Cardiology: h istory of [...] abnormalities. Trini Banegas MD Cardiology:[facility] Cardiology:WILL PLAN ON GETTING PET CT SCAN WITH NUCLEAR IMAGING TO EVAL THE CORONARY CALCIFICATIONS AND FOR OCCLUSIVE CAD [facility] Cardiology:history o f cva o n asa and statin w ill update testing [facility] Cardiology:THERE IS CONCERN ABOUT AN ANEURYSM AND PT HAS HAS HAD ADVANCED PAD WITH PRIOR RIGHT CEA AND HAS HAD LOWER EXT PAD WILL ARRANGE FOR CAROTID ULTRASOUND AND CT AORTA WITH [facility] Cardiology:On max do se Lipitor H [...]
--- OUTSIDE RECORDS SUMMARY | 2024-12-29 12:14 | XMS_ITS | Encounter Summary ---
Author Organization [employer] [facility] Address [address] [place] [address] Care Team Providers Care Knitting Tester Name Role Phone Nba Negrete MD Primary Care Provider Encounter Details Date Type Department Care Team (Latest Contact Info) Description 06/21/2008 Outpatient Historical [facility] Lorenzo Nuñez MD [address] [place], [place] [address] [place] [address] -x0 (Work) Unspecified Backache Social History Tobacco Use Types Packs/Day Years Used Date Smoking Tobacco: Never Assessed Sex and Gender Information Value Date Recorded Sex Assigned at Not on file Legal Sex Male 4:56 AM CHIEF CONTROLLER STATION Gender Identity Not on file Sexual Orientation Not on file documented as of this encounter Plan of Treatment Not on file documented as of this encounter Procedures Procedure Name Priority Date/Time Associated Diagnosis Comments MRI LUMBAR W WO CONTRAST Routine 06/21/2008 9:18 AM CHIEF CONTROLLER STATION POC CREATININE Routine 06/21/2008 9:14 AM CHIEF CONTROLLER STATION documented in this encounter Results * MRI LUMBAR W WO CONTRAST (06/21/2008 9:18 AM CHIEF CONTROLLER STATION) Anatomical Region Laterality Modality Spine Other 06/21/2008 9:18 AM CHIEF CONTROLLER STATION Narrative 06/21/2008 7:20 PM CHIEF CONTROLLER STATION [place] [address] [place], [place] [address] Admit Date: 06/21/2008 GEO KAY Sex: M Admit Prov: LORENZO NUÑEZ Date: 1950 Primary Care Prov: GEO BRAVO CMRN: [id number] [id number] [facility] Ordering Prov: N/A Accession Number: [id number] Interpretation MR IMAGING OF LUMBAR SPINE WITH [...] DANIELA PLUNKETT 06/21/2008 19:19 Transcribed: 06/21/2008 10:13 [facility] Procedure Note Daniela Plunkett MD - 06/21/2008 [facility] [address] [place], [place] [address] Admit Date: 06/21/2008 GEO KAY Sex: M Admit Prov: LORENZO NUÑEZ Date: 1950 Primary Care Prov: GEO BRAVO CMRN: [id number] Room: [facility] SSN: [id number] IMAGING SERVICES Ordering Prov: N/A Interpretation MR [...] level since prior exam. . Dictated by: DANIEAL PLUNKETT 06/21/2008 10:05 Electronically signed by: DANIELA PLUNKETT 06/21/2008 19:19 Transcribed: 06/21/2008 10:13 [facility] Lorenzo Nuñez MD MR ORDERABLES Final Result * POC CREATININE (06/21/2008 9:14 AM CHIEF CONTROLLER STATION) CREATININE POC 0.8 0.6 - 1.3 mg/dL [facility] GFR >60 >=60 mL/min/1.7 sq meter [facility] GFR, >60 >=60 mL/min/1.7 sq meter [facility] Capillary blood specimen (specimen) 06/21/2008 9:14 AM CHIEF CONTROLLER STATION 06/21/2008 9:14 AM CHIEF CONTROLLER STATION us Lorenzo Nuñez MD POINT OF CARE TESTING Edited INTERFACE SYSTEM Refer to clinic/hospital department [facility] CLIA# [id number] [address] [place] [place] [address] documented in this encounter Visit Diagnoses Diagnosis Backache, unspecified documented in this encounter Care Teams Knitting Tester Relationship Specialty Start Date End Date Nba Negrete MD PCP - General Internal Medicine 02/11/24 documented as of this encounter
--- OUTSIDE RECORDS SUMMARY | 2024-12-29 12:14 | XMS_ITS | Clinical Summary ---
Author Organization [facility] Address [address] [place] [address] Phone Care Team Providers Care Metal Miner Blasting Name Role Phone Nba Negrete MD Primary [...] on file Legal Sex Male 4:56 AM MANAGER PATIENT Gender Identity Not on file Sexual Orientation [...] 50+ YEARS Completed 07/11/2018 , 07/09/2014 Insurance [facility] OTILIO MATHIS [address] [address] [place] [address] Care Teams Metal Miner Blasting Relationship Specialty Start Date End Date Nba Negrete MD PCP - General Internal Medicine 02/11/24
[2024-12-29] MEDS: HYDROcodone/acetaminophen (*CRX) 5-325 MG TABLET 1 TAB PO (12:38)
[2024-12-29 12:45] LABS: Hematocrit 43.4 % (42.0-52.0); Hemoglobin 13.4 g/dL (14.0-18.0); Mean Corpuscular HGB Conc 30.9 g/dl (32-36); Mean Corpuscular Hemoglobin 29.9 pg (26-34); Mean Corpuscular Volume 96.9 fl (80-100); Mean Platelet Volume 10.5 fl (7.4-10.4); Platelet Count Result 229 k/mm3 (150-375); Red Blood Count 4.48 M/mm3 (4.6-6.20); Red Cell Distribution Width 13.3 % (11.5-14.5)
[2024-12-29 12:54] LABS: Lactic Acid Reflex 2.7 mmol/L (0.7-2.0)
[2024-12-29 12:55] LABS: Alanine Aminotransferase 77 U/L (6-50); Albumin Level 3.6 g/dL (3.5-5.1); Alkaline Phosphatase 114 U/L (38-126); Anion Gap 9 mmol/L (4-12); Aspartate Amino Transferase 88 U/L (17-59); Bilirubin,Total 2.1 mg/dL (0.2-1.3); Blood Urea Nitrogen 20 mg/dL (9-20); Calcium 8.5 mg/dL (8.4-10.2); Carbon Dioxide 34 mmol/L (22-30); Chloride 91 mmol/L (98-107); Estimated CRCL calculation 82 ml/min; Estimated Glomerular Filt Rate > 60; Glucose 201 mg/dL (65-110); Potassium 3.2 mmol/L (3.4-5.0); Sodium 134 mmol/L (137-145)
[2024-12-29 13:11] LABS: White Blood Count 67.1 K/mm3 (4.5-10.0)
[2024-12-29 13:14] LABS: Band Neutrophils Percent 3 % (0-6); Lymphocytes Absolute Manual 44.28 K/mm3 (1.1-4.5); Lymphocytes Percent Manual 66 % (18-44); Monocytes Absolute Manual 1.34 K/mm3 (0.1-0.90); Monocytes Percent Manual 2 % (3-9); Neutrophils Absolute Manual 21.47 K/mm3 (1.3-6.7); Neutrophils Percent Manual 29 % (46-73); Smudge Cells PRESENT; Total Cells Counted 100
[2024-12-29 13:15] LABS: Platelet Estimate Adequate (Adequate); Schistocytes None Seen
[2024-12-29] MEDS: LIDO 1%/EPINEPHRINE 1:100,000 20 ML VIAL 5 ML INFILTRATE (13:55)
--- NOTE | 2024-12-29 13:56 | ED.GENADULT ---
HPI - General Adult General Chief complaint: Skin/Abscess/Foreign Body Stated complaint: cellulitis L. arm Time Seen by Provider: 12/29/24 11:54 History of Present Illness HPI narrative: Patient is a 74-year-old male who presents ER with concerns for infection of his left arm. Was seen here 4 days ago and diagnosed with cellulitis. Placed on ciprofloxacin. Reports he has developed blisters over the elbow that are concerning him and he started having drainage. No fevers or chills. He reports he thinks swelling has somewhat decreased but he is still having discomfort he has developed increased redness. Related Data Home Medications ?Medication ?Instructions ?Recorded ?Confirmed ?Last Taken ?Type albuterol sulfate 90 mcg/actuation 1 puff inhalation Q4H PRN 12/29/24 12/29/24 Unknown History aerosol inhaler shortness of breath or wheezing amlodipine 10 mg tablet 10 mg PO DAILY 12/29/24 12/29/24 Unknown History atorvastatin 80 mg tablet 80 mg PO DAILY 12/29/24 12/29/24 Unknown History hydrochlorothiazide 25 mg tablet 25 mg PO DAILY 12/29/24 12/29/24 Unknown History Allergies Allergy/AdvReac Type Severity Reaction Status Date / Time No Known Allergies Allergy Verified 12/29/24 10:25 Review of Systems Review of Systems: All systems reviewed & are unremarkable except as noted in HPI and below Constitutional: Constitutional: Reports no additional constitutional complaints ENT: Reports system reviewed and no additional complaints, except as documented Cardiovascular: Cardiovascular: Reports no additional cardiovascular complaints Respiratory: Respiratory: Reports no additional respiratory complaints Musculoskeletal: Musculoskeletal: Reports no additional musculoskeletal complaints Integumentary/Breasts: Skin/Breast: Reports system reviewed and no additional complaints, except as docu [facility] Past Medical History Medical History (Updated 12/29/24 @ 19:19 by Jaime Lovelace MD) CLL (chronic lymphocytic leukemia) Social History Social History Smoking packs per day: 0.5 Smoking cigarettes per day: 10.0 Years smoked: 50 Smoking pack-years: 25.00 Smoking status: Current every day smoker Tobacco type: cigarettes Alcohol intake: never Substance use: never Do You Feel Safe in your Home?: Yes Lack of Transportation: No Lack of Food: Never True Current Housing: I Have Housing Concerned About Future Housing: No Difficulty Paying Gas/Electric Bills: No Difficulty Paying for Meds: No Currently Unemployed: No Education: High School Diploma/GED Difficulty w/ Childcare or Family Care: No Spiritual care concerns: No Exam Narrative: GENERAL: Well-appearing, well-nourished, and in no acute distress. HEAD: Normocephalic, atraumatic. ENT: Mucous membranes moist. CHEST: Clear to auscultation. No respiratory distress. HEART: Regular rate and rhythm. Normal peripheral pulses. EXTREMITIES: Normal range of motion. 2+ edema left upper extremity. Reactive bursitis left side. SKIN: Warm, dry. Cellulitis of left upper extremity especially the forearm. Bullae over the left elbow. Mid forearm with purulent drainage. NEURO: Alert and oriented x3. PSYCH: Normal mood and affect. Course Course Emergency Course: Patient tolerated incision and drainage with packing. Copious amounts of pus removed from the infection. Patient be started on vancomycin. Orthopedic surgery will consult on the case given location on extremity. They would like a CT scan and repeat x-ray to stab wish baseline after the I&D. Patient accepted by hospitalist service. Vital Signs Vital signs: Vital Signs Temperature 97.5 F L 12/29/24 10:36 Pulse Rate 109 H 12/29/24 10:36 Respiratory Rate 18 12/29/24 10:36 Blood Pressure 143/65 H 12/29/24 10:36 Pulse Oximetry 90 12/29/24 10:36 Temperature 98.3 F 12/29/24 17:05 Pulse Rate 101 H 12/29/24 17:05 Respiratory Rate 16 12/29/24 17:05 Blood Pressure 137/60 12/29/24 17:05 Pulse Oximetry 92 12/29/24 17:05 Oxygen Delivery Nasal Cannula 12/29/24 14:40 Oxygen Flow Rate 2 12/29/24 14:40 Procedures Abscess I/D Left forearm: Date of Incision: 12/29/24 Side (if applicable): left Local Anesthetic: lidocaine 1% and with epi Amount of anesthesia used (mL): 8 Irrigation: No Packing used?: plain I&D Results: Pus Medical Decision Making Vital Signs Vital Signs: Vital Signs Temperature 97.5 F L 12/29/24 10:36 Pulse Rate 109 H 12/29/24 10:36 Respiratory Rate 18 12/29/24 10:36 Blood Pressure 143/65 H 12/29/24 10:36 Pulse Oximetry 90 12/29/24 10:36 Temperature 98.3 F 12/29/24 17:05 Pulse Rate 101 H 12/29/24 17:05 Respiratory Rate 16 12/29/24 17:05 Blood Pressure 137/60 12/29/24 17:05 Pulse Oximetry 92 12/29/24 17:05 Oxygen Delivery Nasal Cannula 12/29/24 14:40 Oxygen Flow Rate 2 12/29/24 14:40 Lab Data 12/29/24 12:39 12/29/24 12:39 Labs: Lab Results 12/29/24 12/29/24 Range/Units 12:39 13:53 WBC 67.1 H* (4.5-10.0) K/mm3 RBC 4.48 L (4.6-6.20) M/mm3 Hgb 13.4 L (14.0-18.0) g/dL Hct 43.4 (42.0-52.0) % MCV 96.9 (80-100) fl MCH 29.9 (26-34) pg MCHC 30.9 L (32-36) g/dl RDW 13.3 (11.5-14.5) % Plt Count 229 (150-375) k/mm3 MPV 10.5 H (7.4-10.4) fl Immature Gran % (Auto) Not Reportable Neut % (Auto) Not Reportable Lymph % (Auto) Not Reportable [place] % (Auto) Not Reportable Eos % (Auto) Not Reportable Baso % (Auto) Not Reportable Lymph # (Auto) Not Reportable [place] # (Auto) Not Reportable Eos # (Auto) Not Reportable Baso # (Auto) Not Reportable Abs Immat Gran (auto) Not Reportable Absolute Neuts (auto) Not Reportable Absolute Nucleated RBC Not Reportable Total Counted 100 Neutrophils % (Manual) 29 L (46-73) % Band Neutrophils % 3 (0-6) % Lymphocytes % (Manual) 66 H (18-44) % Monocytes % (Manual) 2 L (3-9) % Nucleated RBC % Not Reportable Abs Neuts (Manual) 21.47 H (1.3-6.7) K/mm3 Abs Lymphs (Manual) 44.28 H (1.1-4.5) K/mm3 Abs Monocytes (Manual) 1.34 H (0.1-0.90) K/mm3 Smudge Cells Present Platelet Estimate Adequate (Adequate) Schistocytes None seen Sodium 134 L (137-145) mmol/L Potassium 3.2 L (3.4-5.0) mmol/L Chloride 91 L (98-107) mmol/L Carbon Dioxide 34 H (22-30) mmol/L Anion Gap 9 (4-12) mmol/L BUN 20 (9-20) mg/dL Creatinine 0.82 (0.7-1.3) mg/dL Estim Creat Clear Calc 82 ml/min Estimated GFR > 60 (59 - ) Glucose 201 H (65-110) mg/dL Lactic Acid 2.7 H (0.7-2.0) mmol/L Calcium 8.5 (8.4-10.2) mg/dL Total Bilirubin 2.1 H (0.2-1.3) mg/dL AST 88 H (17-59) U/L ALT 77 H (6-50) U/L Alkaline Phosphatase 114 (38-126) U/L Total Protein 7.0 (6.3-8.2) g/dL Albumin 3.6 (3.5-5.1) g/dL Blood Type O Positive Antibody Screen Negative Crossmatch See Detail Imaging Data Radiologist's impression: ITS Impressions Forearm CT 12/29/24 14:51 IMPRESSION: 1. Prominent subcutaneous edema surrounding a 9 x 4 x 2 cm region of likely phlegmonous change without evident organizing abscess located in the subcutaneous tissues dorsal to the proximal ulna and with small superficial skin laceration. Forearm X-Ray 12/29/24 14:53 IMPRESSION: 1. Prominent soft tissue swelling about the proximal to mid left forearm and left elbow with a few tiny foci of soft tissue gas posterior to the proximal ulna. Which on immediately prior CT extends along the small skin laceration or site of debridement. No more remote soft tissue gas identified to suggest accessing fasciitis although this would be a clinical diagnosis. 2. Degenerative skeletal changes as detailed above. No acute osseous abnormality. Discharge Plan Discharge Clinical Impression: Cellulitis and abscess of upper extremity Patient Disposition: Still a Patient Condition: Stable
[2024-12-29 14:43] LABS: Reflex Lactic Acid Yes or No Add Lactic
[2024-12-29] MEDS: VANCOMYCIN 1,250 MG/NS 250 ML 1,250 MG/250 ML BAG 166.67 MG IVPB ×2 (14:47→17:37)
--- NOTE | 2024-12-29 15:37 | PC.NURSE ---
food tray ordered for patient
--- NOTE | 2024-12-29 16:41 | P.HP_ITS ---
H&P: HPI History of Present Illness Date/Time: 12/29/24 16:41 Chief Complaint: Left arm cellulitis Narrative: 74-year-old male history of CLL presents the hospital with left arm cellulitis that is draining. Patient states the arm feels better after having I&D in the emergency room. Patient states that he came into the hospital on 12/25/2024 and was diagnosed with cellulitis and was sent home on oral antibiotics. He states that he has been taking his antibiotics as prescribed. He states that the swelling and the pain has increased and he starting to have some drainage. So he came back into the emergency room. He denies fever chills. However he states that his appetite has been poor. WBC 67.1, hemoglobin 13.4, sodium of 134, potassium of 3.2, chloride of 91, carbon dioxide of 34, lactic acid of 2.7, bilirubin 2.1, AST [address] of the forearm showsProminent subcutaneous edema surrounding a 9 x 4 x 2 cm region of likely phlegmonous change without evident organizing abscess located in the subcutaneous tissues dorsal to the proximal ulna and with small superficial skin laceration post I&D in ED. wound culture and blood cultures pending. Review of Systems Review of Systems: 12 systems were reviewed and are negativ e except for as per HPI. [facility] Past Medical History Medical History (Updated 12/29/24 @ 19:19 by Jaime Lovelace MD) CLL (chronic lymphocytic leukemia) Social History Social History Smoking packs per day: 0.5 Smoking cigarettes per day: 10.0 Years smoked: 50 Smoking pack-years: 25.00 Smoking status: Current every day smoker Tobacco type: cigarettes Alcohol intake: never Substance use: never Do You Feel Safe in your Home?: Yes Lack of Transportation: No Lack of Food: Never True Current Housing: I Have Housing Concerned About Future Housing: No Difficulty Paying Gas/Electric Bills: No Difficulty Paying for Meds: No Currently Unemployed: No Education: High School Diploma/GED Difficulty w/ Childcare or Family Care: No Spiritual care concerns: No Meds Home Medications and Allergies Home Medications ?Medication ?Instructions ?Recorded ?Confirmed ?Type ciprofloxacin HCl 500 mg tablet 500 mg PO Q12H #14 tabs 12/25/24 12/29/24 Rx albuterol sulfate 90 mcg/actuation 1 puff inhalation Q4H PRN 12/29/24 12/29/24 History aerosol inhaler shortness of breath or wheezing amlodipine 10 mg tablet 10 mg PO DAILY 12/29/24 12/29/24 History atorvastatin 80 mg tablet 80 mg PO DAILY 12/29/24 12/29/24 History hydrochlorothiazide 25 mg tablet 25 mg PO DAILY 12/29/24 12/29/24 History Allergies Allergy/AdvReac Type Severity Reaction Status Date / Time No Known Allergies Allergy Verified 12/29/24 10:25 Vital Signs Vital Signs - 24 hr 12/29/24 10:36 12/29/24 14:30 12/29/24 14:40 Temperature 97.5 F L Pulse Rate 109 H 95 Respiratory Rate 18 24 H Blood Pressure 143/65 H 125/71 Pulse Oximetry 90 88 L 92 Oxygen Delivery Nasal Cannula Oxygen Flow Rate 2 12/29/24 15:31 Temperature Pulse Rate 94 Respiratory Rate 20 Blood Pressure 121/71 Pulse Oximetry 91 Oxygen Delivery Oxygen Flow Rate Exam Narrative: General: well appearing, appears stated age. HEENT: normocephalic, atraumatic. Mucous membranes moist. EOMI, PERRLA, bilateral sclera anicteric, no conjunctival injection. Neck supple without JVD, lymphadenopathy, or bruit. Respiratory: clear to ascultation bilaterally. No rales/rhonic/wheezes. Cardiovascular: Regular rate and rhythm, normal S1-S2 upon ascultation. No murmurs, rubs, or clicks. PMI is nondisplaced, capillary refill less than 3 second. Abdomen: Soft, round, no pulsatile masses, nondistended and nontender. No rebound, no guarding. No CVA tenderness, no hepatosplenomegaly. Bowel sounds present to all four quadrants. No high pitch or tinkling sounds, resonant to percussion. Extremities: No cyanosis, clubbing, or edema present. Pulses are palpable 2/2. Left forearm with erythema up to elbow Neuro: Alert and orientated x 4. PERRLA. Cranial nerves 2-12 intact without focal deficit. Skin: Warm, dry, and intact, without rash, erythema, or lesion. Psych: pleasant, cooperative, normal speech, normal affect, no hallucinations, no dysarthia H&P: Results Labs Labs: Short CBC 12/29/24 Range/Units 12:39 WBC 67.1 H* (4.5-10.0) K/mm3 Hgb 13.4 L (14.0-18.0) g/dL Hct 43.4 (42.0-52.0) % Plt Count 229 (150-375) k/mm3 BMP 12/29/24 12:39 Sodium 134 L Potassium 3.2 L Chloride 91 L Carbon Dioxide 34 H BUN 20 Creatinine 0.82 Glucose 201 H Calcium 8.5 Liver Function 12/29/24 Range/Units 12:39 Total Bilirubin 2.1 H (0.2-1.3) mg/dL AST 88 H (17-59) U/L ALT 77 H (6-50) U/L Alkaline Phosphatase 114 (38-126) U/L Albumin 3.6 (3.5-5.1) g/dL Assessment and Plan Assessment and plan (1) Cellulitis: Code(s): L03.90 - Cellulitis, unspecified Status: Inactive Assessment and Plan: Sepsis from cellulitis with abscess Sepsis bolus Repeat lactic improved Orthopedics Consult pending recommendations IV vancomycin (2) Lactic acidosis: Code(s): E87.20 - Acidosis, unspecified Status: Acute Assessment and Plan: Sepsis bolus Repeat lactic 1.6 after bolus Blood cultures pending (3) CLL (chronic lymphocytic leukemia): Code(s): C91.10 - Chronic lymphocytic leukemia of B-cell type not having achieved remission Status: Acute Assessment and Plan: Leukocytosis increased from baseline likely due to acute infection (4) Hyponatremia: Code(s): E87.1 - Hypo-osmolality and hyponatremia Status: Acute Assessment and Plan: IV fluids for hydration (5) Hypokalemia: Code(s): E87.6 - Hypokalemia Status: Acute Assessment and Plan: Daily BMP Replete as needed Quality VTE Prophylaxis VTE prophylaxis: mechanical ordered and pharmacologic ordered Hospitalist MIPS Advance Care Plan I have confirmed that the patient's Advanced Care Plan is present, code status is documented, or surrogate decision maker is listed in patient medical record.: Yes Medication Reconciliation I have utilized all available resources to obtain, update and review the patients current medications (includes all prescriptions, OTC, herbals, cannabis, and nutritional supplements).: Yes
[2024-12-29] MEDS: SODIUM CHLORIDE 0.9% IV 1,000 ML 999 ML IV CONT ×3 (17:38→22:29)
[2024-12-29 18:09] LABS: Lactic Acid 1.6 mmol/L (0.7-2.0)
[2024-12-29] MEDS: POTASSIUM CHLORIDE 20 MEQ ER TABLET 40 MEQ PO (22:35)
[2024-12-30] MEDS: SODIUM CHLORIDE 0.9% IV 200 ML 999 ML IV CONT (00:07)
[2024-12-30] MEDS: VANCOMYCIN 1,500 MG/NS 500 ML 1,500 MG/500 ML BAG 250 MG IVPB ×2 (02:43→15:06)
[2024-12-30 06:00] VITALS: BP 125/61; PULSE 90; RESP 14; TEMP 36.4; O2SAT 91
[2024-12-30 06:25] LABS: Hematocrit 33.5 % (42.0-52.0); Hemoglobin 10.8 g/dL (14.0-18.0); Mean Corpuscular HGB Conc 32.2 g/dl (32-36); Mean Corpuscular Hemoglobin 30.5 pg (26-34); Mean Corpuscular Volume 94.6 fl (80-100); Mean Platelet Volume 10.1 fl (7.4-10.4); Platelet Count Result 183 k/mm3 (150-375); Red Blood Count 3.54 M/mm3 (4.6-6.20); Red Cell Distribution Width 13.2 % (11.5-14.5)
[2024-12-30 06:37] LABS: Anion Gap 3 mmol/L (4-12); Blood Urea Nitrogen 12 mg/dL (9-20); Calcium 7.2 mg/dL (8.4-10.2); Carbon Dioxide 33 mmol/L (22-30); Chloride 97 mmol/L (98-107); Estimated CRCL calculation 108 ml/min; Estimated Glomerular Filt Rate > 60; Glucose 110 mg/dL (65-110); Potassium 3.6 mmol/L (3.4-5.0); Sodium 133 mmol/L (137-145)
[2024-12-30 06:46] LABS: Glucose Point of Care 123 mg/dl (65-105)
[2024-12-30 07:07] LABS: Band Neutrophils Percent 7 % (0-6); Lymphocytes Absolute Manual 12.32 K/mm3 (1.1-4.5); Lymphocytes Percent Manual 22 % (18-44); Monocytes Absolute Manual 3.36 K/mm3 (0.1-0.90); Monocytes Percent Manual 6 % (3-9); Neutrophils Absolute Manual 40.32 K/mm3 (1.3-6.7); Neutrophils Percent Manual 65 % (46-73); Total Cells Counted 100
[2024-12-30 07:08] LABS: Smudge Cells MANY
[2024-12-30 07:09] LABS: Anisocytosis 1+; Burr Cells 1+; Platelet Estimate Adequate (Adequate); Schistocytes None Seen
[2024-12-30] MEDS: DOCUSATE SODIUM 100 MG CAPSULE PO ×2 (11:06→21:11)
[2024-12-30] MEDS: ATORVASTATIN 40 MG TABLET 80 MG PO (11:07)
[2024-12-30] MEDS: amLODIPine BESYLATE 10 MG TABLET PO (11:07)
[2024-12-30] MEDS: hydroCHLOROthiazide 25 MG TABLET PO (11:07)
[2024-12-30 13:55] VITALS: BP 121/66; PULSE 82; RESP 14; TEMP 36.4; O2SAT 91
--- NOTE | 2024-12-30 14:48 | P.PNIM_ITS ---
Progress Note: A&P Assessment and Plan (1) Cellulitis: Code(s): L03.90 - Cellulitis, unspecified Status: Inactive Assessment and Plan: Sepsis from cellulitis with abscess Sepsis bolus Repeat lactic improved Orthopedics Consult pending recommendations IV vancomycin follow culture results (2) Lactic acidosis: Code(s): E87.20 - Acidosis, unspecified Status: Acute Assessment and Plan: Sepsis bolus Repeat lactic 1.6 after bolus Blood cultures pending (3) CLL (chronic lymphocytic leukemia): Code(s): C91.10 - Chronic lymphocytic leukemia of B-cell type not having achieved remission Status: Acute Assessment and Plan: Leukocytosis imrpoving (4) Hyponatremia: Code(s): E87.1 - Hypo-osmolality and hyponatremia Status: Acute Assessment and Plan: IV fluids for hydration (5) Hypokalemia: Code(s): E87.6 - Hypokalemia Status: Acute Assessment and Plan: Daily BMP Replete as needed (6) Hypocalcemia: Code(s): E83.51 - Hypocalcemia Status: Acute Assessment and Plan: tums Subjective Date/time seen: 12/30/24 14:48 Interval history: per hPi: 74-year-old male history of CLL presents the hospital with left arm cellulitis that is draining. Patient states the arm feels better after having I&D in the emergency room. Patient states that he came into the hospital on 12/25/2024 and was diagnosed with cellulitis and was sent home on oral antibiotics. He states that he has been taking his antibiotics as prescribed. He states that the swelling and the pain has increased and he starting to have some drainage. So he came back into the emergency room. He denies fever chills. However he states that his appetite has been poor. WBC 67.1, hemoglobin 13.4, sodium of 134, potassium of 3.2, chloride of 91, carb on dioxide of 34, lactic acid of 2.7, bilirubin 2.1, AST [address] of the forearm showsProminent subcutaneous edema surrounding a 9 x 4 x 2 cm region of likely phlegmonous change without evident organizing abscess located in the subcutaneous tissues dorsal to the proximal ulna and with small superficial skin laceration post I&D in ED. wound culture and blood cultures pending. 12/30/24 Patient was seen and examined at bedside. he is feeling fine . his L arm/elbow is getting better. denies any chest pain. SOb abd pain, nausea vomiting. continue treatment for sepsis/cellulitis. follow orthopedic team recs. Review of Systems Review of Systems: 12 systems were reviewed and are negativ e except for as per HPI. Exam Narrative: General: well appearing, appears stated age. HEENT: normocephalic, atraumatic. Mucous membranes moist. EOMI, PERRLA, bilateral sclera anicteric, no conjunctival injection. Neck supple without JVD, lymphadenopathy, or bruit. Respiratory: clear to ascultation bilaterally. No rales/rhonic/wheezes. Cardiovascular: Regular rate and rhythm, normal S1-S2 upon ascultation. No murmurs, rubs, or clicks. PMI is nondisplaced, capillary refill less than 3 second. Abdomen: Soft, round, no pulsatile masses, nondistended and nontender. No rebound, no guarding. No CVA tenderness, no hepatosplenomegaly. Bowel sounds present to all four quadrants. No high pitch or tinkling sounds, resonant to percussion. Extremities: No cyanosis, clubbing, or edema present. Pulses are palpable 2/2. Left forearm with erythema up to elbow well dressed Neuro: Alert and orientated x 4. PERRLA. Cranial nerves 2-12 intact without focal deficit. Skin: Warm, dry, and intact, without rash, erythema, or lesion. Psych: pleasant, cooperative, normal speech, normal affect, no hallucinations, no dysarthia Objective Data Vital Signs Vital Signs: Vital Signs - 24 hr 12/29/24 15:31 12/29/24 17:05 12/29/24 20:40 Temperature 98.3 F 99.4 F Pulse Rate 94 101 H 95 Respiratory Rate 20 16 22 H Blood Pressure 121/71 137/60 114/64 Pulse Oximetry 91 92 90 Oxygen Delivery Oxygen Flow Rate 12/29/24 23:23 12/30/24 06:00 12/30/24 13:55 Temperature 97.5 F L 97.6 F Pulse Rate 90 82 Respiratory Rate 14 14 Blood Pressure 125/61 121/66 Pulse Oximetry 92 91 91 Oxygen Delivery Nasal Cannula Oxygen Flow Rate 2 Intake/Output Intake/Output: Intake & Output 12/27/24 12/28/24 12/29/24 12/30/24 23:59 23:59 23:59 23:59 Intake Total 1690 780 Balance 5810 780 Meds/Results Medications: Active Medications Generic Name Dose Route Start Last Admin Trade Name Freq PRN Reason Stop Dose Admin Acetaminophen 650 mg 12/29/24 15:24 Acetaminophen 325 Mg Tablet PO Q4H PRN Mild Pain (1-3) or Fever Hydrocodone Bitart/Acetaminophen 1 tab 12/29/24 15:24 Hydrocodone/Acetaminophen (*Crx) 5-325 Mg Tablet PO Q4H PRN Pain Rated 4-6 Albuterol 1 puff 12/29/24 20:34 Albuterol Sulfate (*Sp) Aerosol 1 Puff INHALATION Q4HRT PRN shortness of breath or wheezin Amlodipine Besylate 10 mg 12/30/24 09:00 12/30/24 11:07 Amlodipine Besylate 10 Mg Tablet PO 10 mg DAILY DEREJE Administration Atorvastatin Calcium 80 mg 12/30/24 09:00 12/30/24 11:07 Atorvastatin 40 Mg Tablet PO 80 mg DAILY DEREJE Administration Docusate Sodium 100 mg 12/29/24 21:00 12/30/24 11:06 Docusate Sodium 100 Mg Capsule PO 100 mg Q12HR DEREJE Administration Enoxaparin Sodium 40 mg 12/30/24 09:00 12/30/24 11:06 Enoxaparin 40 Mg/0.4 Ml Syringe SUB-Q Not Given DAILY DEREJE Hydrochlorothiazide 25 mg 12/30/24 09:00 12/30/24 11:07 Hydrochlorothiazide 25 Mg Tablet PO 25 mg DAILY DEREJE Administration Vancomycin HCl 1,500 mg in 500 mls @ 250 mls/hr 12/30/24 02:00 12/30/24 02:43 Vancomycin 1,500 Mg/Ns 500 Ml IVPB 250 mls/hr Q12H DEREJE Administration Morphine Sulfate 2 mg 12/29/24 15:24 Morphine Sulfate (*Crx) 2 Mg/Ml Inj IV PUSH Q2H PRN Pain Rated 7-10 Ondansetron HCl 4 mg 12/29/24 15:24 Ondansetron Inj 4 Mg/2 Ml Vial IV PUSH Q4H PRN Nausea Radiology Results: ITS Impressions Forearm CT 12/29/24 14:51 IMPRESSION: 1. Prominent subcutaneous edema surrounding a 9 x 4 x 2 cm region of likely phlegmonous change without evident organizing abscess located in the subcutaneous tissues dorsal to the proximal ulna and with small superficial skin laceration. Forearm X-Ray 12/29/24 14:53 IMPRESSION: 1. Prominent soft tissue swelling about the proximal to mid left forearm and left elbow with a few tiny foci of soft tissue gas posterior to the proximal ulna. Which on immediately prior CT extends along the small skin laceration or site of debridement. No more remote soft tissue gas identified to suggest accessing fasciitis although this would be a clinical diagnosis. 2. Degenerative skeletal changes as detailed above. No acute osseous abnormality. Labs Labs: Laboratory Results - last 24 hr 12/29/24 12/29/24 12/30/24 13:53 17:32 05:04 WBC RBC Hgb Hct MCV MCH MCHC RDW Plt Count MPV Immature Gran % (Auto) Neut % (Auto) Lymph % (Auto) Ransom % (Auto) Eos % (Auto) Baso % (Auto) Lymph # (Auto) Ransom # (Auto) Eos # (Auto) Baso # (Auto) Abs Immat Gran (auto) Absolute Neuts (auto) Absolute Nucleated RBC Total Counted Neutrophils % (Manual) Band Neutrophils % Lymphocytes % (Manual) Monocytes % (Manual) Nucleated RBC % Abs Neuts (Manual) Abs Lymphs (Manual) Abs Monocytes (Manual) Smudge Cells Platelet Estimate Anisocytosis Verena Cells Schistocytes Sodium Potassium Chloride Carbon Dioxide Anion Gap BUN Creatinine Estim Creat Clear Calc Estimated GFR Glucose POC Capillary Glucose 123 H Lactic Acid 1.6 Calcium Antibody Screen Negative Crossmatch See Detail 12/30/24 05:30 WBC 56.0 H* RBC 3.54 L Hgb 10.8 L Hct 33.5 L MCV 94.6 MCH 30.5 MCHC 32.2 RDW 13.2 Plt Count 183 MPV 10.1 Immature Gran % (Auto) Piano Sounding [employer] Matcher Neut % (Auto) P[employer]ounding [employer] Matcher Lymph % (Auto) P[employer]ounding [employer] Matcher Ransom % (Auto) P[employer]ounding [employer] Matcher Eos % (Auto) P[employer]ounding [employer] Matcher Baso % (Auto) P[employer] Matcher Lymph # (Auto) P[employer]ounding [employer] Matcher Ransom # (Auto) P[employer]ounding [employer] Matcher Eos # (Auto) P[employer]ounding [employer] Matcher Baso # (Auto) P[employer]ounding [employer] Matcher Abs Immat Gran (auto) P[employer] Matcher Absolute Neuts (auto) Piano [employer] Matcher Absolute Nucleated RBC Piano [employer] Matcher Total Counted 100 Neutrophils % (Manual) 65 Band Neutrophils % 7 H Lymphocytes % (Manual) 22 Monocytes % (Manual) 6 Nucleated RBC % P[employer]cher Abs Neuts (Manual) 40.32 H Abs Lymphs (Manual) 12.32 H Abs Monocytes (Manual) 3.36 H Smudge Cells Many Platelet Estimate Adequate Anisocytosis 1+ Brodhead Cells 1+ Schistocytes None seen Sodium 133 L Potassium 3.6 Chloride 97 L Carbon Dioxide 33 H Anion Gap 3 L BUN 12 D Creatinine 0.61 L Estim Creat Clear Calc 108 Estimated GFR > 60 Glucose 110 POC Capillary Glucose Lactic Acid Calcium 7.2 L Antibody Screen Crossmatch Quality VTE Prophylaxis VTE prophylaxis: mechanical ordered and pharmacologic ordered
--- NOTE | 2024-12-30 15:19 | PM.CNOR ---
Assessment and Plan Assessment and plan (1) Abscess of left forearm: Code(s): L02.414 - Cutaneous abscess of left upper limb Status: Acute Plan 74 yr old male with Left Forearm infection s/p incision and drainage yesterday in ED doing much better. WBC decrease, pain decreased. 1. Continue Vancomycin 2. Daily dressing change with nugauze packing. 3. Follow clinically 4. Await Culture results 5. possible formal incision and drainage in OR if he fails to clinically improve and/or WBC increases. History of Present Illness HPI Consult date: 12/30/24 Requesting physician: Bertrand Thomas V. Chief complaint: Left Forearm Abscess Narrative: 74 yr old male with history of CLL who presents to ED with about a week history of Left Forearm redness swelling and pain, with outpatient treatment with oral anti-biotics. Symptoms worsened. Presented to ED 12/29/24 with abscess to forearm. In the ED this was incised and drain with cultures pending (Gram Pos Cocci to date). He was then started on IV Vancomycin. Since being transferred to the floor, he has had significant clinical improvement. 90% or more reduction in pain, no nausea, no fevers. WBC decreased from 67k to 56k today. All cultures including blood cultures are pending. [facility] Past Medical History Medical History (Updated 12/30/24 @ 15:31 by Charlie Palma MD) CLL (chronic lymphocytic leukemia) Social History Social History Smoking packs per day: 0.5 Smoking cigarettes per day: 10.0 Years smoked: 50 Smoking pack-years: 25.00 Smoking status: Current every day smoker Tobacco type: cigarettes Alcohol intake: never Substance use: never Do You Feel Safe in your Home?: Yes Lack of Transportation: No Lack of Food: Never True Current Housing: I Have Housing Concerned About Future Housing: No Difficulty Paying Gas/Electric Bills: No Difficulty Paying for Meds: No Currently Unemployed: No Education: High School Diploma/GED Difficulty w/ Childcare or Family Care: No Spiritual care concerns: No Meds Home Medications and Allergies Home Medications ?Medication ?Instructions ?Recorded ?Confirmed ?Type ciprofloxacin HCl 500 mg tablet 500 mg PO Q12H #14 tabs 12/25/24 12/29/24 Rx albuterol sulfate 90 mcg/actuation 1 puff inhalation Q4H PRN 12/29/24 12/29/24 History aerosol inhaler shortness of breath or wheezing amlodipine 10 mg tablet 10 mg PO DAILY 12/29/24 12/29/24 History atorvastatin 80 mg tablet 80 mg PO DAILY 12/29/24 12/29/24 History hydrochlorothiazide 25 mg tablet 25 mg PO DAILY 12/29/24 12/29/24 History Allergies Allergy/AdvReac Type Severity Reaction Status Date / Time No Known Allergies Allergy Verified 12/29/24 10:25 Vital Signs Vital Signs - 24 hr 12/29/24 15:31 12/29/24 17:05 12/29/24 20:40 Temperature 36.8 C 37.4 C Pulse Rate 94 101 H 95 Respiratory Rate 20 16 22 H Blood Pressure 121/71 137/60 114/64 Pulse Oximetry 91 92 90 Oxygen Delivery Oxygen Flow Rate 12/29/24 23:23 12/30/24 06:00 12/30/24 13:55 Temperature 36.4 C L 36.4 C Pulse Rate 90 82 Respiratory Rate 14 14 Blood Pressure 125/61 121/66 Pulse Oximetry 92 91 91 Oxygen Delivery Nasal Cannula Oxygen Flow Rate 2 Results Labs 12/30/24 05:30 12/30/24 05:30 Labs: Abnormal lab results 12/30/24 12/30/24 Range/Units 05:04 05:30 WBC 56.0 H* (4.5-10.0) K/mm3 RBC 3.54 L (4.6-6.20) M/mm3 Hgb 10.8 L (14.0-18.0) g/dL Hct 33.5 L (42.0-52.0) % Band Neutrophils % 7 H (0-6) % Abs Neuts (Manual) 40.32 H (1.3-6.7) K/mm3 Abs Lymphs (Manual) 12.32 H (1.1-4.5) K/mm3 Abs Monocytes (Manual) 3.36 H (0.1-0.90) K/mm3 Sodium 133 L (137-145) mmol/L Chloride 97 L (98-107) mmol/L Carbon Dioxide 33 H (22-30) mmol/L Anion Gap 3 L (4-12) mmol/L Creatinine 0.61 L (0.7-1.3) mg/dL POC Capillary Glucose 123 H (65-105) mg/dl Calcium 7.2 L (8.4-10.2) mg/dL H & H 12/29/24 12/30/24 Range/Units 12:39 05:30 Hgb 13.4 L 10.8 L (14.0-18.0) g/dL Hct 43.4 33.5 L (42.0-52.0) % All other labs normal.
--- NOTE | 2024-12-30 15:22 | PM.CNOR ---
Assessment and Plan Assessment and plan (1) Abscess of left forearm: Code(s): L02.414 - Cutaneous abscess of left upper limb Status: Acute Plan 74 yr old male with Left Forearm infection s/p incision and drainage yesterday in ED doing much better. WBC decrease, pain decreased. 1. Continue Vancomycin 2. Daily dressing change with nugauze packing. 3. Follow clinically 4. Await Culture results 5. possible formal incision and drainage in OR if he fails to clinically improve and/or WBC increases. History of Present Illness HPI Consult date: 12/30/24 Chief complaint: Left Forearm Abscess Narrative: 74 yr old male with history of CLL who presents to ED with about a week history of Left Forearm redness swelling and pain, with outpatient treatment with oral anti-biotics. Symptoms worsened. Presented to ED 12/29/24 with abscess to forearm. In the ED this was incised and drain with cultures pending (Gram Pos Cocci to date). He was then started on IV Vancomycin. Since being transferred to the floor, he has had significant clinical improvement. 90% or more reduction in pain, no nausea, no fevers. WBC decreased from 67k to 56k today. All cultures including blood cultures are pending. Review of Systems Constitutional: Constitutional: Reports as per [facility] Past Medical History Medical History (Updated 12/30/24 @ 15:31 by Charlie Palma MD) CLL (chronic lymphocytic leukemia) Social History Social History Smoking packs per day: 0.5 Smoking cigarettes per day: 10.0 Years smoked: 50 Smoking pack-years: 25.00 Smoking status: Current every day smoker Tobacco type: cigarettes Alcohol intake: never Substance use: never Do You Feel Safe in your Home?: Yes Lack of Transportation: No Lack of Food: Never True Current Housing: I Have Housing Concerned About Future Housing: No Difficulty Paying Gas/Electric Bills: No Difficulty Paying for Meds: No Currently Unemployed: No Education: High School Diploma/GED Difficulty w/ Childcare or Family Care: No Spiritual care concerns: No Meds Home Medications and Allergies Home Medications ?Medication ?Instructions ?Recorded ?Confirmed ?Type ciprofloxacin HCl 500 mg tablet 500 mg PO Q12H #14 tabs 12/25/24 12/29/24 Rx albuterol sulfate 90 mcg/actuation 1 puff inhalation Q4H PRN 12/29/24 12/29/24 History aerosol inhaler shortness of breath or wheezing amlodipine 10 mg tablet 10 mg PO DAILY 12/29/24 12/29/24 History atorvastatin 80 mg tablet 80 mg PO DAILY 12/29/24 12/29/24 History hydrochlorothiazide 25 mg tablet 25 mg PO DAILY 12/29/24 12/29/24 History Allergies Allergy/AdvReac Type Severity Reaction Status Date / Time No Known Allergies Allergy Verified 12/29/24 10:25 Vital Signs Vital Signs - 24 hr 12/29/24 15:31 12/29/24 17:05 12/29/24 20:40 Temperature 36.8 C 37.4 C Pulse Rate 94 101 H 95 Respiratory Rate 20 16 22 H Blood Pressure 121/71 137/60 114/64 Pulse Oximetry 91 92 90 Oxygen Delivery Oxygen Flow Rate 12/29/24 23:23 12/30/24 06:00 12/30/24 13:55 Temperature 36.4 C L 36.4 C Pulse Rate 90 82 Respiratory Rate 14 14 Blood Pressure 125/61 121/66 Pulse Oximetry 92 91 91 Oxygen Delivery Nasal Cannula Oxygen Flow Rate 2 Exam Narrative: Exam of Left Forearm, dressing removed and incision site examined. Packing removed, purulent drainage. Dressing changed with nugauze packing. Const: General: cooperative, healthy appearing, comfortable, no acute distress, alert, awake, Physically active and obese Nutritional Appearance: average body habitus and overweight Orientation/consciousness: oriented to person, oriented to place and oriented to time Results Labs 12/30/24 05:30 12/30/24 05:30 Labs: Abnormal lab results 12/30/24 12/30/24 Range/Units 05:04 05:30 WBC 56.0 H* (4.5-10.0) K/mm3 RBC 3.54 L (4.6-6.20) M/mm3 Hgb 10.8 L (14.0-18.0) g/dL Hct 33.5 L (42.0-52.0) % Band Neutrophils % 7 H (0-6) % Abs Neuts (Manual) 40.32 H (1.3-6.7) K/mm3 Abs Lymphs (Manual) 12.32 H (1.1-4.5) K/mm3 Abs Monocytes (Manual) 3.36 H (0.1-0.90) K/mm3 Sodium 133 L (137-145) mmol/L Chloride 97 L (98-107) mmol/L Carbon Dioxide 33 H (22-30) mmol/L Anion Gap 3 L (4-12) mmol/L Creatinine 0.61 L (0.7-1.3) mg/dL POC Capillary Glucose 123 H (65-105) mg/dl Calcium 7.2 L (8.4-10.2) mg/dL H & H 12/29/24 12/30/24 Range/Units 12:39 05:30 Hgb 13.4 L 10.8 L (14.0-18.0) g/dL Hct 43.4 33.5 L (42.0-52.0) % All other labs normal.
[2024-12-30] MEDS: CALCIUM CARBONATE (TUMS) 500 MG (200 MG ELEMENTAL) PO (17:34)
[2024-12-30] MEDS: POTASSIUM CHLORIDE 20 MEQ PACKET (FOR LIQUID) 40 MEQ PO (17:36)
[2024-12-30 21:34] VITALS: BP 115/64; PULSE 90; RESP 16; TEMP 36.9; O2SAT 94
[2024-12-31] VITALS (7 sets, daily range): BP systolic 112–144; BP diastolic 69–74; PULSE 79–94; RESP 16–20; TEMP 36–36.6; O2SAT 93–95
[2024-12-31 01:43] LABS: Vancomycin Trough 11.2 ug/mL (10.0-20.0)
[2024-12-31] MEDS: VANCOMYCIN 2,000 MG/NS 500 ML 2,000 MG/500 ML BAG 250 MG IVPB ×2 (02:18→14:55)
[2024-12-31 06:30] LABS: Hematocrit 37.5 % (42.0-52.0); Hemoglobin 11.5 g/dL (14.0-18.0); Mean Corpuscular HGB Conc 30.7 g/dl (32-36); Mean Corpuscular Hemoglobin 29.8 pg (26-34); Mean Corpuscular Volume 97.2 fl (80-100); Mean Platelet Volume 10.1 fl (7.4-10.4); Platelet Count Result 211 k/mm3 (150-375); Red Blood Count 3.86 M/mm3 (4.6-6.20); Red Cell Distribution Width 13.2 % (11.5-14.5)
[2024-12-31 06:32] LABS: White Blood Count 50.5 K/mm3 (4.5-10.0)
[2024-12-31 06:36] LABS: Anion Gap 0 mmol/L (4-12); Blood Urea Nitrogen 8 mg/dL (9-20); Calcium 7.9 mg/dL (8.4-10.2); Carbon Dioxide 37 mmol/L (22-30); Chloride 99 mmol/L (98-107); Estimated CRCL calculation 111 ml/min; Estimated Glomerular Filt Rate > 60; Glucose 114 mg/dL (65-110); Potassium 3.7 mmol/L (3.4-5.0); Sodium 136 mmol/L (137-145)
[2024-12-31] MEDS: hydroCHLOROthiazide 25 MG TABLET PO (09:30)
[2024-12-31] MEDS: ATORVASTATIN 40 MG TABLET 80 MG PO (09:30)
[2024-12-31] MEDS: CALCIUM CARBONATE (TUMS) 500 MG (200 MG ELEMENTAL) PO ×2 (09:30→16:49)
[2024-12-31] MEDS: DOCUSATE SODIUM 100 MG CAPSULE PO ×2 (09:30→20:45)
[2024-12-31] MEDS: amLODIPine BESYLATE 10 MG TABLET PO (09:30)
[2024-12-31] MEDS: HYDROcodone/acetaminophen (*CRX) 5-325 MG TABLET 1 TAB PO ×2 (09:31→20:45)
--- NOTE | 2024-12-31 12:27 | PM.PNORT ---
Progress Note: A&P Assessment and Plan (1) Abscess of left forearm: Code(s): L02.414 - Cutaneous abscess of left upper limb Status: Acute Assessment and Plan: Continues to improve clinically with decrease in drainage, decrease in WBC to 50k (Patient typically runs in the 40k), and feeling my better with less pain. - continue conservative management. - wound culture from 12/29 - Staph Aureus (sensitivities pending) Subjective Subjective Date/Time Seen: 12/31/24 12:27 Principal diagnosis: left forearm infection Interval history: The patient continues to improve clinically with decrease in pain and left forearm. No nausea. Exam Narrative: The left forearm is bandaged and dry. I examined the dressing from this morning's dressing change with a patient's nurse and it appears to be significantly better with a decrease in drainage compared to previous dressing change yesterday. Objective Data Vital Signs Vital Signs: Vital Signs - 24 hr 12/30/24 13:55 12/30/24 21:34 12/31/24 00:12 Temperature 36.4 C 36.9 C Pulse Rate 82 90 94 Respiratory Rate 14 16 20 Blood Pressure 121/66 115/64 Pulse Oximetry 91 94 95 Oxygen Delivery Nasal Cannula Oxygen Flow Rate 2 Fraction of Inspired Oxygen 28 12/31/24 06:00 12/31/24 08:31 Temperature 36.6 C Pulse Rate 88 Respiratory Rate 16 Blood Pressure 144/74 H Pulse Oximetry 94 93 Oxygen Delivery Nasal Cannula Oxygen Flow Rate 2 Fraction of Inspired Oxygen 28 Intake/Output Intake/Output: Intake & Output 12/28/24 12/29/24 12/30/24 12/31/24 23:59 23:59 23:59 23:59 Intake Total 1689 Balance 1689 Meds/Results Medications: Active Medications Generic Name Dose Route Start Last Admin Trade Name Freq PRN Reason Stop Dose Admin Acetaminophen 650 mg 12/29/24 15:24 Acetaminophen 325 Mg Tablet PO Q4H PRN Mild Pain (1-3) or Fever Hydrocodone Bitart/Acetaminophen 1 tab 12/29/24 15:24 12/31/24 09:31 Hydrocodone/Acetaminophen (*Crx) 5-325 Mg Tablet PO 1 tab Q4H PRN Administration Pain Rated 4-6 Albuterol 1 puff 12/29/24 20:34 Albuterol Sulfate (*Sp) Aerosol 1 Puff INHALATION Q4HRT PRN shortness of breath or wheezin Amlodipine Besylate 10 mg 12/30/24 09:00 12/31/24 09:30 Amlodipine Besylate 10 Mg Tablet PO 10 mg DAILY DEREJE Administration Atorvastatin Calcium 80 mg 12/30/24 09:00 12/31/24 09:30 Atorvastatin 40 Mg Tablet PO 80 mg DAILY DEREJE Administration Calcium Carbonate 200 mg 12/30/24 17:00 12/31/24 09:30 Calcium Carbonate (Tums) 500 Mg (200 Mg Elemental) PO 200 mg BID DEREJE Administration Docusate Sodium 100 mg 12/29/24 21:00 12/31/24 09:30 Docusate Sodium 100 Mg Capsule PO 100 mg Q12HR DEREJE Administration Enoxaparin Sodium 40 mg 12/30/24 09:00 12/31/24 09:30 Enoxaparin 40 Mg/0.4 Ml Syringe SUB-Q Not Given DAILY [facility] Hydrochlorothiazide 25 mg 12/30/24 09:00 12/31/24 09:30 Hydrochlorothiazide 25 Mg Tablet PO 25 mg DAILY DEREJE Administration Vancomycin HCl 2,000 mg in 500 mls @ 250 mls/hr 12/31/24 02:00 12/31/24 02:18 Vancomycin 2,000 Mg/Ns 500 Ml IVPB 250 mls/hr Q12H DEREJE Administration Morphine Sulfate 2 mg 12/29/24 15:24 Morphine Sulfate (*Crx) 2 Mg/Ml Inj IV PUSH Q2H PRN Pain Rated 7-10 Ondansetron HCl 4 mg 12/29/24 15:24 Ondansetron Inj 4 Mg/2 Ml Vial IV PUSH Q4H PRN Nausea Radiology Results: ITS Impressions Forearm CT 12/29/24 14:51 IMPRESSION: 1. Prominent subcutaneous edema surrounding a 9 x 4 x 2 cm region of likely phlegmonous change without evident organizing abscess located in the subcutaneous tissues dorsal to the proximal ulna and with small superficial skin laceration. Forearm X-Ray 12/29/24 14:53 IMPRESSION: 1. Prominent soft tissue swelling about the proximal to mid left forearm and left elbow with a few tiny foci of soft tissue gas posterior to the proximal ulna. Which on immediately prior CT extends along the small skin laceration or site of debridement. No more remote soft tissue gas identified to suggest accessing fasciitis although this would be a clinical diagnosis. 2. Degenerative skeletal changes as detailed above. No acute osseous abnormality. Labs Labs: Laboratory Results - last 24 hr 12/31/24 12/31/24 01:02 06:05 WBC 50.5 H* RBC 3.86 L Hgb 11.5 L Hct 37.5 L MCV 97.2 MCH 29.8 MCHC 30.7 L RDW 13.2 Plt Count 211 MPV 10.1 Sodium 136 L Potassium 3.7 Chloride 99 Carbon Dioxide 37 H Anion Gap 0 L BUN 8 L Creatinine 0.59 L Estim Creat Clear Calc 111 Estimated GFR > 60 Glucose 114 H Calcium 7.9 L Vancomycin Trough 11.2
--- NOTE | 2024-12-31 13:05 | P.PNIM_ITS ---
Progress Note: A&P Assessment and Plan (1) Cellulitis: Code(s): L03.90 - Cellulitis, unspecified Status: Inactive Assessment and Plan: Sepsis from cellulitis with abscess Sepsis bolus Repeat lactic improved Orthopedics Consult pending recommendations IV vancomycin Culure positive for Staph aureus (2) Lactic acidosis: Code(s): E87.20 - Acidosis, unspecified Status: Acute Assessment and Plan: Sepsis bolus Repeat lactic 1.6 after bolus Blood cultures pending (3) CLL (chronic lymphocytic leukemia): Code(s): C91.10 - Chronic lymphocytic leukemia of B-cell type not having achieved remission Status: Acute Assessment and Plan: Leukocytosis imrpoving (4) Hyponatremia: Code(s): E87.1 - Hypo-osmolality and hyponatremia Status: Acute Assessment and Plan: received IV fluids for hydration (5) Hypokalemia: Code(s): E87.6 - Hypokalemia Status: Acute Assessment and Plan: Daily BMP Replete as needed (6) Hypocalcemia: Code(s): E83.51 - Hypocalcemia Status: Acute Assessment and Plan: tums Subjective Date/time seen: 12/31/24 13:05 Interval history: per hPi: 74-year-old male history of CLL presents the hospital with left arm cellulitis that is draining. Patient states the arm feels better after having I&D in the emergency room. Patient states that he came into the hospital on 12/25/2024 and was diagnosed with cellulitis and was sent home on oral antibiotics. He states that he has been taking his antibiotics as prescribed. He states that the swelling and the pain has increased and he starting to have some drainage. So he came back into the emergency room. He denies fever chills. However he states that his appetite has been poor. WBC 67.1, hemoglobin 13.4, sodium of 134, potassium of 3.2, chloride of 91, carbon dioxide of 34, lactic acid of 2.7, bilirubin 2.1, AST [address] of the forearm showsProminent subcutaneous edema surrounding a 9 x 4 x 2 cm region of likely phlegmonous change without evident organizing abscess located in the subcutaneous tissues dorsal to the proximal ulna and with small superficial skin laceration post I&D in ED. wound culture and blood cultures pending. 12/30/24 Patient was seen and examined at bedside. he is feeling fine . his L arm/elbow is getting better. denies any chest pain. SOb abd pain, nausea vomiting. continue treatment for sepsis/cellulitis. follow orthopedic team recs. 12/31/24 Patient was seen and examined at bedside. he is feeling better. His L upper ext is getting better, ROM is better. Orthopedic team on board. continue IV Abx. Culure positive for Staph aureus Review of Systems Review of Systems: 12 systems were reviewed and are negativ e except for as per HPI. Exam Narrative: General: well appearing, appears stated age. HEENT: normocephalic, atraumatic. Mucous membranes moist. EOMI, PERRLA, bilateral sclera anicteric, no conjunctival injection. Neck supple without JVD, lymphadenopathy, or bruit. Respiratory: clear to ascultation bilaterally. No rales/rhonic/wheezes. Cardiovascular: Regular rate and rhythm, normal S1-S2 upon ascultation. No murmurs, rubs, or clicks. PMI is nondisplaced, capillary refill less than 3 second. Abdomen: Soft, round, no pulsatile masses, nondistended and nontender. No rebound, no guarding. No CVA tenderness, no hepatosplenomegaly. Bowel sounds present to all four quadrants. No high pitch or tinkling sounds, resonant to percussion. Extremities: No cyanosis, clubbing, or edema present. Pulses are palpable 2/2. Left forearm with erythema up to elbow well dressed Neuro: Alert and orientated x 4. PERRLA. Cranial nerves 2-12 intact without focal deficit. Skin: Warm, dry, and intact, without rash, erythema, or lesion. Psych: pleasant, cooperative, normal speech, normal affect, no hallucinations, no dysarthia Objective Data Vital Signs Vital Signs: Vital Signs - 24 hr 12/30/24 13:55 12/30/24 21:34 12/31/24 00:12 Temperature 97.6 F 98.4 F Pulse Rate 82 90 94 Respiratory Rate 14 16 20 Blood Pressure 121/66 115/64 Pulse Oximetry 91 94 95 Oxygen Delivery Nasal Cannula Oxygen Flow Rate 2 Fraction of Inspired Oxygen 28 12/31/24 06:00 12/31/24 08:31 Temperature 97.8 F Pulse Rate 88 Respiratory Rate 16 Blood Pressure 144/74 H Pulse Oximetry 94 93 Oxygen Delivery Nasal Cannula Oxygen Flow Rate 2 Fraction of Inspired Oxygen 28 Intake/Output Intake/Output: Intake & Output 12/28/24 12/29/24 12/30/24 12/31/24 23:59 23:59 23:59 23:59 Intake Total 1689 Balance 1689 Meds/Results Medications: Active Medications Generic Name Dose Route Start Last Admin Trade Name Freq PRN Reason Stop Dose Admin Acetaminophen 650 mg 12/29/24 15:24 Acetaminophen 325 Mg Tablet PO Q4H PRN Mild Pain (1-3) or Fever Hydrocodone Bitart/Acetaminophen 1 tab 12/29/24 15:24 12/31/24 09:31 Hydrocodone/Acetaminophen (*Crx) 5-325 Mg Tablet PO 1 tab Q4H PRN Administration Pain Rated 4-6 Albuterol 1 puff 12/29/24 20:34 Albuterol Sulfate (*Sp) Aerosol 1 Puff INHALATION Q4HRT PRN shortness of breath or wheezin Amlodipine Besylate 10 mg 12/30/24 09:00 12/31/24 09:30 Amlodipine Besylate 10 Mg Tablet PO 10 mg DAILY DEREJE Administration Atorvastatin Calcium 80 mg 12/30/24 09:00 12/31/24 09:30 Atorvastatin 40 Mg Tablet PO 80 mg DAILY DEREJE Administration Calcium Carbonate 200 mg 12/30/24 17:00 12/31/24 09:30 Calcium Carbonate (Tums) 500 Mg (200 Mg Elemental) PO 200 mg BID DEREJE Administration Docusate Sodium 100 mg 12/29/24 21:00 12/31/24 09:30 Docusate Sodium 100 Mg Capsule PO 100 mg Q12HR DEREJE Administration Enoxaparin Sodium 40 mg 12/30/24 09:00 12/31/24 09:30 Enoxaparin 40 Mg/0.4 Ml Syringe SUB-Q Not Given DAILY DEREJE Hydrochlorothiazide 25 mg 12/30/24 09:00 12/31/24 09:30 Hydrochlorothiazide 25 Mg Tablet PO 25 mg DAILY DEREJE Administration Vancomycin HCl 2,000 mg in 500 mls @ 250 mls/hr 12/31/24 02:00 12/31/24 02:18 Vancomycin 2,000 Mg/Ns 500 Ml IVPB 250 mls/hr Q12H DEREJE Administration Morphine Sulfate 2 mg 12/29/24 15:24 Morphine Sulfate (*Crx) 2 Mg/Ml Inj IV PUSH Q2H PRN Pain Rated 7-10 Ondansetron HCl 4 mg 12/29/24 15:24 Ondansetron Inj 4 Mg/2 Ml Vial IV PUSH Q4H PRN Nausea Radiology Results: ITS Impressions Forearm CT 12/29/24 14:51 IMPRESSION: 1. Prominent subcutaneous edema surrounding a 9 x 4 x 2 cm region of likely phlegmonous change without evident organizing abscess located in the subcutaneous tissues dorsal to the proximal ulna and with small superficial skin laceration. Forearm X-Ray 12/29/24 14:53 IMPRESSION: 1. Prominent soft tissue swelling about the proximal to mid left forearm and left elbow with a few tiny foci of soft tissue gas posterior to the proximal u campus administrative assistant. Which on immediately prior CT extends along the small skin laceration or site of debridement. No more remote soft tissue gas identified to suggest accessing fasciitis although this would be a clinical diagnosis. 2. Degenerative skeletal changes as detailed above. No acute osseous abnormality. Labs Labs: Laboratory Results - last 24 hr 12/31/24 12/31/24 01:02 06:05 WBC 50.5 H* RBC 3.86 L Hgb 11.5 L Hct 37.5 L MCV 97.2 MCH 29.8 MCHC 30.7 L RDW 13.2 Plt Count 211 MPV 10.1 Sodium 136 L Potassium 3.7 Chloride 99 Carbon Dioxide 37 H Anion Gap 0 L BUN 8 L Creatinine 0.59 L Estim Creat Clear Calc 111 Estimated GFR > 60 Glucose 114 H Calcium 7.9 L Vancomycin Trough 11.2 Quality VTE Prophylaxis VTE prophylaxis: mechanical ordered and pharmacologic ordered
[2024-12-31] MEDS: ONDANSETRON INJ 4 MG/2 ML VIAL IV PUSH (20:45)
[2025-01-01] MEDS: VANCOMYCIN 2,000 MG/NS 500 ML 2,000 MG/500 ML BAG 250 MG IVPB (01:37)
[2025-01-01 05:50] VITALS: BP 116/67; PULSE 77; RESP 16; TEMP 35.9; O2SAT 95
[2025-01-01 06:28] LABS: Hematocrit 36.8 % (42.0-52.0); Hemoglobin 11.7 g/dL (14.0-18.0); Mean Corpuscular HGB Conc 31.8 g/dl (32-36); Mean Corpuscular Hemoglobin 30.5 pg (26-34); Mean Corpuscular Volume 95.8 fl (80-100); Mean Platelet Volume 9.7 fl (7.4-10.4); Platelet Count Result 247 k/mm3 (150-375); Red Blood Count 3.84 M/mm3 (4.6-6.20); Red Cell Distribution Width 13.2 % (11.5-14.5); White Blood Count 45.6 K/mm3 (4.5-10.0)
[2025-01-01 06:39] LABS: Anion Gap 1 mmol/L (4-12); Blood Urea Nitrogen 7 mg/dL (9-20); Carbon Dioxide 36 mmol/L (22-30); Chloride 98 mmol/L (98-107); Estimated CRCL calculation 125 ml/min; Estimated Glomerular Filt Rate > 60; Glucose 101 mg/dL (65-110); Potassium 3.7 mmol/L (3.4-5.0); Sodium 135 mmol/L (137-145)
[2025-01-01 08:00] VITALS: O2SAT 95
[2025-01-01] MEDS: amLODIPine BESYLATE 10 MG TABLET PO (09:32)
[2025-01-01] MEDS: hydroCHLOROthiazide 25 MG TABLET PO (09:32)
[2025-01-01] MEDS: ATORVASTATIN 40 MG TABLET 80 MG PO (09:32)
[2025-01-01] MEDS: DOCUSATE SODIUM 100 MG CAPSULE PO (09:32)
[2025-01-01] MEDS: CALCIUM CARBONATE (TUMS) 500 MG (200 MG ELEMENTAL) PO (09:32)
[2025-01-01] MEDS: ENOXAPARIN 40 MG/0.4 ML SYRINGE SUB-Q (09:35)
--- NOTE | 2025-01-01 11:30 | P.DS_ITS ---
DS: Admitting Diagnosis Discharge Date 01/01/25 Admitting Diagnosis abscess DS: Discharge Diagnosis Discharge Diagnosis (1) Cellulitis: Code(s): L03.90 - Cellulitis, unspecified Status: Inactive Assessment and Plan: Sepsis from cellulitis with abscess Repeat lactic improved Orthopedics team on board, Continue Abx IV vancomycin will switch to po Bactrim 23 more doses Culure positive for MRSA (2) Lactic acidosis: Code(s): E87.20 - Acidosis, unspecified Status: Acute Assessment and Plan: Sepsis bolus Repeat lactic 1.6 after bolus Blood cultures pending (3) CLL (chronic lymphocytic leukemia): Code(s): C91.10 - Chronic lymphocytic leukemia of B-cell type not having achieved remission Status: Acute Assessment and Plan: Leukocytosis imrpoving (4) Hyponatremia: Code(s): E87.1 - Hypo-osmolality and hyponatremia Status: Acute Assessment and Plan: received IV fluids for hydration (5) Hypokalemia: Code(s): E87.6 - Hypokalemia Status: Acute Assessment and Plan: improved Replete as needed (6) Hypocalcemia: Code(s): E83.51 - Hypocalcemia Status: Acute Assessment and Plan: miah DS: Summary Hospital Course Hospital Course: 74-year-old male history of CLL presents the hospital with left arm cellulitis that is draining. Patient states the arm feels better after having I&D in the emergency room. Patient states that he came into the hospital on 12/25/2024 and was diagnosed with cellulitis and was sent home on oral antibiotics. He states that he has been taking his antibiotics as prescribed. He states that the swelling and the pain has increased and he starting to have some drainage. So he came back into the emergency room. He denies fever chills. However he states that his appetite has been poor. WBC 67.1, hemoglobin 13.4, sodium of 134, potassium of 3.2, chloride of 91, carbon dioxide of 34, lactic acid of 2.7, bilirubin 2.1, AST [address] of the forearm showsProminent subcutaneous edema surrounding a 9 x 4 x 2 cm region of likely phlegmonous change without evident organizing abscess located in the subcutaneous tissues dorsal to the proximal ulna and with small superficial skin laceration post I&D in ED. wound culture and blood cultures pe nding. 12/30/24 Patient was seen and examined at bedside. he is feeling fine . his L arm/elbow is getting better. denies any chest pain. SOb abd pain, nausea vomiting. continue treatment for sepsis/cellulitis. follow orthopedic team recs. 01/01/25 Patient was seen and examined at bedside. he is feeling better. His L upper ext is getting better, ROM is better. Orthopedic team on board. receive vancomycin. Culure positive for Staph aureus, MRSA. will discharge to home. continue bactrim for total 2 weeks ABx therapy Status at Discharge Overall status at discharge: patient is progressing back to baseline Time Spent with Patient Time attestation: Total time spent providing and/or coordinating discharge services: Time spent: Greater than 30 minutes Exam Narrative: General: well appearing, appears stated age. HEENT: normocephalic, atraumatic. Mucous membranes moist. EOMI, PERRLA, bilateral sclera anicteric, no conjunctival injection. Neck supple without JVD, lymphadenopathy, or bruit. Respiratory: clear to ascultation bilaterally. No rales/rhonic/wheezes. Cardiovascular: Regular rate and rhythm, normal S1-S2 upon ascultation. No murmurs, rubs, or clicks. PMI is nondisplaced, capillary refill less than 3 second. Abdomen: Soft, round, no pulsatile masses, nondistended and nontender. No rebound, no guarding. No CVA tenderness, no hepatosplenomegaly. Bowel sounds present to all four quadrants. No high pitch or tinkling sounds, resonant to percussion. Extremities: No cyanosis, clubbing, or edema present. Pulses are palpable 2/2. Left forearm cellulitis improving ROM back to normal,well dressed Neuro: Alert and orientated x 4. PERRLA. Cranial nerves 2-12 intact without focal deficit. Skin: Warm, dry, and intact, without rash, erythema, or lesion. Psych: pleasant, cooperative, normal speech, normal affect, no hallucinations, no dysarthia DS: Data Data Completed and Pending Labs on day of discharge: Labs from last 24 hours 01/01/25 05:47 WBC 45.6 H RBC 3.84 L Hgb 11.7 L Hct 36.8 L MCV 95.8 MCH 30.5 MCHC 31.8 L RDW 13.2 Plt Count 247 MPV 9.7 Sodium 135 L Potassium 3.7 Chloride 98 Carbon Dioxide 36 H Anion Gap 1 L BUN 7 L Creatinine 0.52 L Estim Creat Clear Calc 125 Estimated GFR > 60 Glucose 101 Calcium 8.0 L Preliminary micro results at discharge 12/29/24 12:39 Anaerobic Culture - Preliminary Abscess 12/29/24 13:53 Blood Culture - Preliminary Blood 12/29/24 14:23 Blood Culture - Preliminary Blood Discharge Plan Discharge Attending physician on discharge: Svitlana Lagos Consulting providers: Charlie Palma Discharging Clinician: Svitlana Lagos Anticipated Discharge Date/Time: 01/01/25 11:38 Patient Disposition: Home Activity: as tolerated Diet: as tolerated Wound Care Instructions: keep dressing dry and change dressing daily Discharge Instructions: follow with PCP and orthopedic clinic in one week check your blood pressure and heart rate regularly and report to PCP Patient Instructions: Antibiotic Form Patient Language: Mexican Stand Alone Forms: General Discharge Information Follow-up/Referrals: Penelope,MD Nba [Primary Care Provider] - 1 Week Charlie Palma MD [Physician] - Call for Appointment Discharge Medications: New hydrocodone-acetaminophen 5-325 mg Tablet 1 tablet PO Q4H PRN (Reason: Pain Rated 4-6) Qty: 12 0RF sulfamethoxazole-trimethoprim 800-160 mg Tablet 1 tab PO Q12HR Qty: 23 0RF Continued atorvastatin 80 mg tablet 80 mg PO DAILY amlodipine 10 mg tablet 10 mg PO DAILY hydrochlorothiazide 25 mg tablet 25 mg PO DAILY albuterol sulfate 90 mcg/actuation HFA aerosol inhaler 1 puff INHALATION Q4H PRN (Reason: shortness of breath or wheezing) Discontinued ciprofloxacin HCl 500 mg tablet 500 mg PO Q12H Qty: 14 0RF Date of admission: 12/30/24 09:41 Primary Care Provider: PenelopeNba Admitting Provider: Svitlana Lagos Attending physician on admission: Svitlana Lagos Condition: Stable Quality VTE Prophylaxis VTE prophylaxis: mechanical ordered and pharmacologic ordered
[2025-01-01] MEDS: SULFAMETHOXAZOLE/TRIMETHOPRIM 800/160 MG DS TABLET 1 TAB PO (11:59)
== END 2025-01-01 12:45 | disposition home or self-care (01) | DRG 603 ==
LOC: ANHED 12:12 → ANH3MEDSUR 16:14
PROVIDERS: Nurse Practitioner Gerontology; Admitting Provider Internal Medicine; Emergency Provider Emergency Medicine; PCP Internal Medicine; Visit Provider Internal Medicine
DX: L02.512 Cutaneous abscess of left hand (principal); L03.114 Cellulitis of left upper limb; C91.10 Chronic lymphocytic leukemia of B-cell type not having achieved remission; E87.20 Acidosis, unspecified; E87.1 Hypo-osmolality and hyponatremia; B95.62 Methicillin resistant Staphylococcus aureus infection as the cause of diseases classified elsewhere; E87.6 Hypokalemia; F17.210 Nicotine dependence, cigarettes, uncomplicated
CPT/HCPCS: 10061; 36415; 73090; 73201; 80048; 80053; 80202; 82948; 83605; 85025; 85027; 86850; 86900; 86901; 87040; 87070; 87075; 87181; 87205; 96365; 96366; 96375; 96376; 99285; A9270; G0378; J1650; J2004; J2405; J3370; J7030; Q9967

== ENCOUNTER 2025-05-28 10:25 | Outpatient (CLI) | payer MEDICARE, SELFPAY ==
--- NOTE | 2025-05-28 | CONSULT_PTH ---
PATIENT: Geo Shipley LOC: [facility] U#:[id number] AGE/SX: 74/M ROOM: RE05/28/[address]: Jhonathan Bañuelos MD : 1950 BED: DIS: 05/28/2025 SPEC #: [id number] RECD: 05/28/25 11:54 STATUS: LUIS ANTONIO REQ #: [id number] ALLEN: 05/28/25 00:[address]: Jhonathan Bañuelos DEPT: [facility] Consult RECD BY: Skye Ramos MLT ENTERED: 05/28/25 11:55 SP TYPE: Consult OT DR: Nba NegreteMD Tissues: A - Peripheral Smear Procedures: Hematology Consult
[2025-05-28 11:17] LABS: Hematocrit 46.9 % (42.0-52.0); Hemoglobin 15.1 g/dL (14.0-18.0); Mean Corpuscular HGB Conc 32.2 g/dl (32-36); Mean Corpuscular Hemoglobin 30.6 pg (26-34); Mean Corpuscular Volume 95.1 fl (80-100); Platelet Count Result 151 k/mm3 (150-375); Red Blood Count 4.93 M/mm3 (4.6-6.20); White Blood Count 39.6 K/mm3 (4.5-10.0)
--- OUTSIDE RECORDS SUMMARY | 2025-05-28 11:31 | XMS_ITS | Encounter Summary ---
Author Organization [employer] [facility] Address 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
--- OUTSIDE RECORDS SUMMARY | 2025-05-28 11:31 | XMS_ITS | Encounter Summary ---
Author Organization [employer] [facility] Address 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 Gender Identity Not on file Sexual Orientation Not on file documented as of this encounter Plan of Treatment Not on file documented as of this encounter Procedures Procedure Name Priority Date/Time Associated Diagnosis Comments MRI LUMBAR W WO CONTRAST Routine 06/21/2008 9:18 AM RADIAL SAW OPERATOR POC CREATININE Routine 06/21/2008 9:14 AM RADIAL SAW OPERATOR documented in this encounter Results * MRI LUMBAR W WO CONTRAST (06/21/2008 9:18 AM RADIAL SAW OPERATOR) Anatomical Region Laterality Modality Spine Other 06/21/2008 9:18 AM RADIAL SAW OPERATOR Narrative 06/21/2008 7:20 PM RADIAL SAW OPERATOR [address] [address] [place], [place] [address] Admit Date: 06/21/2008 GEO KAY Sex: M Admit Prov: LORENZO NUÑEZ Date: 1950 Primary Care Prov: GEO BRAVO CMRN: [id number] [id number] Ordering Prov: N/A Accession Number: [id number] Interpretation MR IMAGING OF LUMBAR SPINE WITH [...] DANIELA PLUNKETT 06/21/2008 19:19 Transcribed: 06/21/2008 10:13 [facility] Procedure Note Daniela Plunkett MD - 06/21/2008 [facility] [address] [place], [place] [address] Admit Date: 06/21/2008 GEO KAY Sex: M Admit Prov: LORENZO NUÑEZ Date: 1950 Primary Care Prov: GEO BRAVO CMRN: [id number] Room: [facility] SSN: [id number] IMAGING SERVICES Ordering Prov: N/A Interpretation MR [...] DANIELA PLUNKETT 06/21/2008 19:19 Transcribed: 06/21/2008 10:13 [facility] Lorenzo Nuñez MD MR ORDERABLES Final Result * POC CREATININE (06/21/2008 9:14 AM RADIAL SAW OPERATOR) CREATININE POC 0.8 0.6 - 1.3 mg/dL [facility] GFR >60 >=60 mL/min/1.7 sq meter [facility] GFR, >60 >=60 mL/min/1.7 sq meter [facility] Capillary blood specimen (specimen) 06/21/2008 9:14 AM RADIAL SAW OPERATOR 06/21/2008 9:14 AM RADIAL SAW OPERATOR us Lorenzo Nuñez MD POINT OF CARE TESTING Edited INTERFACE SYSTEM Refer to clinic/hospital department [facility] CLIA# [id number] [address] [place] [address] documented in this encounter Visit Diagnoses Diagnosis Backache, unspecified documented in this encounter Care Teams Waiter/Waitress Informal Relationship Specialty Start Date End Date Nba Negrete MD PCP - General Internal Medicine 02/11/24 documented as of this encounter
--- OUTSIDE RECORDS SUMMARY | 2025-05-28 11:31 | XMS_ITS | Encounter Summary ---
Author Organization [employer] Address [address] [place] [address] Care Team Providers Care County Home Demonstrator Name Role Phone Nba Negrete MD Primary Care Provider Encounter Details Date Type Department Care Team (Late st Contact Info) Description 02/18/2007 Outpatient Historical [facility] Support [facility]. (Adt Cardiology[facility]) [address] 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
--- OUTSIDE RECORDS SUMMARY | 2025-05-28 11:31 | XMS_ITS | Encounter Summary ---
Author Organization [facility] [facility] Address 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 Gender Identity Not on file Sexual Orientation [...] and non- Americans is available on the [facility] [place] at: [email or web address] Select: Lab Policies and Procedures Select: Reference Ranges - GFR 02/18/2007 12:4 0 PM CDT Lorenzo Pepper MD CHEMISTRY ORDERABLES Edited Performing Organization Address City/[facility] de Phone Number INTERFACE SYSTEM Refer to clinic/hospital department * HEMOGLOBIN AND HEMATOCRIT (02/18/2007 12:40 PM CDT) HEMOGLOBIN 15.8 13.6 - 16.5 g/dL INTERFACE SYSTEM HEMATOCRIT 45.3 40.0 - 48.0 % INTERFACE SYSTEM 02/18/2007 12:4 0 PM CDT Lorenzo Pepper MD HEMATOLOGY ORDERABLES Edited Performing Organization Address [facility] Co dc Phone Number INTERFACE SYSTEM Refer to clinic/hospital department documented in this encounter Visit Diagnoses Diagnosis Displacement of lumbar intervertebral disc without myelopathy- Primary documented in this encounter Care Teams Thread Winder Relationship Specialty Start Date End Date Nba Negrete MD PCP - General Internal Medicine 02/11/24 documented as of this encounter
--- OUTSIDE RECORDS SUMMARY | 2025-05-28 11:31 | XMS_ITS | Clinical Summary ---
Author Organization [facility] Address [address] [place] [address] Phone Care Team Providers Care Paper Stripper Name Role Phone Nba Negrete MD Primary Care Provider Allergies No known active allergies Medications amLODIPine (NORVASC) 10 MG Tablet Take 10 mg by mouth daily. 06/12/2022 Active hydroCHLOROthiaz suhail 25 MG Tablet Take 25 mg by mouth daily. 05/15/2022 Active aspirin EC 81 MG Tablet Delayed Response Take 81 mg by mouth daily. Active atorvastatin (LIPITOR) 80 MG Tablet Take 80 mg by mouth daily. Active albuterol 108 (90 Base) MCG/ACT Aerosol Solution INHALE 2 PUFFS BY MOUTH EVERY 4 HOURS 04/25/2022 Active LORazepam (ATIVAN) 0.5 MG TabletIndication s:CLL (chronic lymphocytic leukemia) Take 1-2 tabs prior to MRI 2 Tablet 05/20/2023 Active Active Problems Problem Noted Date Diagnosed Date Infrarenal abdominal aortic aneurysm (AAA) witho ut rupture 06/02/2023 Dizziness 05/20/2023 Morning headache 05/20/2023 Unintentional weight loss 05/20/2023 CLL (chronic lymphocytic leukemia) 09/08/2022 Lymphocytosis 08/04/2022 Mixed hyperlipidemia 08/04/2022 Current smoker 08/04/2022 Left-sided chest pain Family History Medical History Relation Name Comments [...] on file Legal Sex Male 10:38 AM [employer] Gender Identity Not on file Sexual Orientation [...] 12:50 PM CDT Height 180.3 cm (5' 11) 12/07/2024 12: 50 PM CDT Body Mass Index 32.47 12/07/2024 12:50 PM CDT Plan of Treatment Upcoming Encounters Date Type Department Care Team (Late st Contact Info) Description 06/11/2025 1:00 PM CDT Office Visit [facility] On[facility] [address] [place] [address] Jhonathan Bañuelos MD [address] [place] [address] Discharge Disposition: Discharged to home or Selfcare Health Maintenance Due Date Last Done Comments Hepatitis C Virus (HCV) Screening 1950 TdaP Immunization 1950 Zoster Immunization (1 of 2) 1967 Lung Cancer Screening 1998 Medicare Initial AWV [id number] 03/16/2023 Respiratory Syncytial Virus (RSV) Immunization (Adult) (1 - 1-dose 75+ series) 2023 Influenza Immunization (#1) 04/16/202505/16, 06/07/2023, 07/02/2020, Additional history exists SARS-COV-2 Immunization (4 - 2025- season) 2025 08/05/2021, 12/05/2020, 11/07/2020 Pneumococcal Immunization (50+ years) Completed 07/11/2018, 07/09/2014 Hepatitis B Immunization Aged Out No longer [...] on patient's age to complete this topic Insurance MEDICARE C [employer] Care Teams Paper Stripper Relationship Specialty Start Date End Date Nba Negrete MD [address] [place] [address] PCP - General Internal Medicine 09/08/23
--- OUTSIDE RECORDS SUMMARY | 2025-05-28 11:32 | XMS_ITS | Clinical Summary ---
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 Gender Identity Not on file Sexual [...] 1:34 PM CDT Height 180.3 cm (5' 11) 02/14/2024 1:34 PM CDT Body Mass Index 30.68 02/14/2024 1:34 PM CDT Plan of Treatment Health Maintenance Due Date Last Done Comments DTAP/TDAP/TD VACCINES (1 - Tdap) 1969 ZOSTER VACCINE (1 of 2) 1998 RSV VACCINE (60+ or ) (1 - 1-dose 75+ series) 2023 INFLUENZA VACCINE (#1) 2025 3, 07/02/2020, 06/28/2019, Additional history exists COVID-19 Vaccine ( - 2024-2 6 season) 2025 08/05/2021, 12/05/2020, 11/07/2020 PNEUMOCOCCAL VACCINE 50+ YEARS Completed 07/11/2018 , 07/09/2014 Insurance [facility] OTILIO MATHIS [address] [id number] Care Teams [employer] Converter Relationship Specialty Start Date End Date Nba Negrete MD PCP - General Internal Medicine 02/11/24
--- OUTSIDE RECORDS SUMMARY | 2025-05-28 11:32 | XMS_ITS | Patient Health Record ---
Author Organization [facility] Address [address] [place] [address] Care Team Providers Care Identifier Horse Name Role Phone Mannie Casillas Primary Care [...] Insured Coverage Start Date Coverage End Date [facility] [address] [place] [address] [id number] Geo Shipley Self - patient is the insured
[2025-05-28 11:39] LABS: Alanine Aminotransferase 19 U/L (6-50); Albumin Level 4.0 g/dL (3.5-5.1); Alkaline Phosphatase 96 U/L (38-126); Anion Gap 6 mmol/L (4-12); Aspartate Amino Transferase 35 U/L (17-59); Bilirubin,Total 1.9 mg/dL (0.2-1.3); Blood Urea Nitrogen 18 mg/dL (9-20); Calcium 8.9 mg/dL (8.4-10.2); Carbon Dioxide 31 mmol/L (22-30); Chloride 99 mmol/L (98-107); Estimated Glomerular Filt Rate > 60; Glucose 128 mg/dL (65-110); Potassium 4.0 mmol/L (3.4-5.0); Sodium 136 mmol/L (137-145); Total Protein 6.4 g/dL (6.3-8.2)
[2025-05-28 11:46] LABS: Band Neutrophils Percent 1 % (0-6); Lymphocytes Absolute Manual 20.98 K/mm3 (1.1-4.5); Lymphocytes Percent Manual 53 % (18-44); Monocytes Absolute Manual 1.98 K/mm3 (0.1-0.90); Monocytes Percent Manual 5 % (3-9); Neutrophils Absolute Manual 14.65 K/mm3 (1.3-6.7); Neutrophils Percent Manual 36 % (46-73); Smudge Cells PRESENT; Total Cells Counted 100
[2025-05-28 11:47] LABS: Promyelocytes Percent 5 %; Schistocytes None Seen
== END 2025-05-28 10:26 | disposition home or self-care (01) ==
LOC: ANHLAB 10:29
PROVIDERS: PCP Internal Medicine; Visit Provider Internal Medicine
DX: C91.10 Chronic lymphocytic leukemia of B-cell type not having achieved remission (principal)
CPT/HCPCS: 36415; 80053; 85025